=== PATIENT | female | born 1935 | race Native Hawaiian/Other Pacific Islander ===

== ENCOUNTER 2017-06-08 09:47 | Day surgery (SDC) | payer MEDICARE, MEDICAID ==
[2017-06-08 09:52] VITALS: BMI 18.5
--- NOTE | 2017-06-08 09:59 | C.PDOC ---
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 EKG in the field showed ST elevatoin in I, aVL, V3, V4 with reciprocal changes in III, aVF. Patient given ASA 324mg, SL nitro x 2 in the field. Chief Complaint (Nursing): Chest Pain History Per: Patient, EMS, Family History/Exam Limitations: clinical condition, language barrier Onset/Duration Of Symptoms: Mins (20) Current Symptoms Are (Timing): Still Present Severity: Severe Quality: "Pain" Past Medical History Reviewed: Historical Data, Nursing Documentation, Vital Signs Vital Signs: Last Vital Signs Temp 97.7 F 06/08/17 09:50 Pulse 53 L 06/08/17 10:50 Resp 15 06/08/17 10:50 BP 181/87 H 06/08/17 10:50 Pulse Ox 99 06/12/17 10:32 - Medical History PMH: CVA, HTN, Hyperlipidemia Family History: States: Unknown Family Hx Other Family History: noncontributory Review Of Systems Except As Marked, All Systems Reviewed And Found Negative. Constitutional: Negative for: Fever, Chills Cardiovascular: Positive for: Chest Pain. Negative for: Palpitations Respiratory: Negative for: Cough, Shortness of Breath Gastrointestinal: Negative for: Nausea, Vomiting, Abdominal Pain Physical Exam - Physical Exam Appears: In Acute Distress (in moderate to severe pain) Skin: Warm, Dry Oral Mucosa: Moist Cardiovascular: Rhythm Regular Respiratory: Normal Breath Sounds, No Rales, No Rhonchi, No Wheezing Gastrointestinal/Abdominal: Normal Exam, Bowel Sounds, Soft, No Tenderness Extremity: Normal ROM, No Pedal Edema, No Calf Tenderness Pulses: Left Dorsalis Pedis: Normal, Right Dorsalis Pedis: Normal Neurological/Psych: Oriented x3 ED Course And Treatment - Laboratory Results Result Diagrams: 06/08/17 10:03 06/08/17 10:03 ECG: Interpreted By Me, Viewed By Me (NSR 75 bpm, normal axis, ST elkevations V1 , V2, V3 with reciprocal changes III, aVF) O2 Sat by Pulse Oximetry: 99 (RA) Pulse Ox Interpretation: Normal Progress Note: [facility] EKG sent and reviewed with Dr. Bravo prior to patient arrival in ED - unclear if STEMI as per him, to be repeated on ED arrival. Blood work, EKG ordered and reviewed. Patient given IV heparin bolus, PO Plavix (requested by Dr. Bravo). - Physician Consult Information Physician Contacted: Jeannie Bravo Outcome Of Conversation: Spoke with Dr. Bravo at approx 9:54am, agrees with Code Heart activation. Patient admitted to his service pending emergent cath. Disposition - Disposition Disposition: HOSPITALIZED Disposition Time: 10:05 Condition: STABLE Forms: [employer] (Stateless) - Clinical Impression Clinical Impression: STEMI (ST elevation myocardial infarction) Decision To Admit - Pt Status Changed To: Hospital Disposition Of: Inpatient - Admit Certification Admit to Inpatient:: After my assessment, the patient will require hospitalization for at least two midnights. This is because of the severity of symptoms shown, intensity of services needed, and/or the medical risk in this patient being treated as an outpatient. - InPatient: Physician Admission Certification: I certify that this patient requires 2 or more midnights of care for the following reason:: see notes - . Bed Request Type: ICU Admitting Physician: Jeannie Bravo Patient Diagnosis: STEMI (ST elevation myocardial infarction)
[2017-06-08 10:05] VITALS: TEMP 97.7
[2017-06-08 10:08] LABS: BASO % 0.2 % (0.0-2.0); EOS # 0.3 K/uL (0.0-0.7); EOS % 4.7 % (0.0-4.0); HEMATOCRIT 33.4 % (34.0-47.0); LYMPH # 3.7 K/uL (1.0-4.3); MEAN CELL VOLUME 79.2 fL (81.0-99.0); MEAN CORPUSCULAR HEMOGLOBIN 26.1 pg (27.0-31.0); MEAN PLATELET VOLUME 8.6 fL (7.2-11.7); MONO # 0.4 K/uL (0.0-0.8); MONO % 6.1 % (0.0-10.0); NRBC % 0.1 % (0.0-2.0); RED CELL DISTRIBUTION WIDTH 13.3 % (11.5-14.5); WHITE BLOOD COUNT 6.5 K/uL (4.8-10.8)
[2017-06-08 10:17] LABS: INR 0.9
[2017-06-08 10:26] LABS: BILIRUBIN,TOTAL 0.8 mg/dL (0.2-1.3); CALCIUM 8.8 mg/dl (8.6-10.4); POTASSIUM 3.9 mmol/L (3.6-5.2); TOTAL PROTEIN 8.3 g/dL (6.3-8.3)
[2017-06-08] MEDS ORDERED: Sodium Chloride 0.9% 500 ML IV ONE ×2 (10:40→10:43)
[2017-06-08] MEDS ORDERED: Sodium Chloride 0.9% 1,000 ML IV SCH (10:45)
[2017-06-08] MEDS ORDERED: Iodixanol 320 MG/ML 200 ML BOTTLE IV ONE (10:58)
[2017-06-08] MEDS ORDERED: Nitroglycerin 50mg in D5W 50 MG/250 ML BOTTLE IV ONE (10:59)
[2017-06-08 11:10] LABS: TROPONIN I 0.122 ng/mL (0.00-0.120)
[2017-06-08 11:33] VITALS: BP 181/87; PULSE 53; RESP 15
--- NOTE | 2017-06-08 19:04 | RAD ---
HISTORY: R/O INFILTRATE COMPARISON: Comparison chest dated 09/24/2012 FINDINGS: LUNGS: Note the study is somewhat limited due to cardiac defibrillator pad which overlies the left mid to lower lung field. Mild bibasilar atelectasis left greater than right. Questionable small effusions. . Calcified granuloma right lung upper lobe and and probably within the left upper lobe as well. . Mild biapical pleural thickening. PLEURA: As above. No apparent pneumothorax. CARDIOVASCULAR: Heart size is upper limits of normal. Aorta is slightly ectatic and uncoiled. OSSEOUS STRUCTURES: No significant abnormalities. VISUALIZED UPPER ABDOMEN: Normal. OTHER FINDINGS: None. IMPRESSION: Note the study is somewhat limited due to cardiac defibrillator pad which overlies the left mid to lower lung field. Mild bibasilar atelectasis left greater than right. Questionable small effusions. Calcified granuloma right upper lobe and possibly probably within left upper lobe as well. Mild biapical pleural thickening
--- NOTE | 2017-06-08 20:30 | CARDCATH ---
CARDIAC CATHETERIZATION INTERVENTION REPORT BRIEF CLINICAL HISTORY: The patient, who is 81-year-old female with history of hypertension, who was brought to the ER of [facility] for the chest pain. The patient had an EKG done, which showed that she was having anterior wall IA. Code Angio was called in. PROCEDURE TECHNIQUE: After consulting the patient, the patient was brought to the cardiac catheterization lab. The patient was prepared for the procedure. Right groin was used for access and after obtaining the access, a 6-[place]ai[place]ese sheath was introduced into the right common femoral artery. A 6-[place]ai[place]ese XB 3.30 guiding catheter was used to visualize the left coronary artery system, which was not successful. Later on 6-[place]ai[place]ese 3.5 JL catheter was used to visualize the left coronary artery system, which showed that the patient has a 70% to 80% ostial left main with ventricularization and dampening of the pressure when the pressure was disengaged. During this time, it was also visualized that the patient has a 100% mid LAD. The patient also has a mid 90% stenosis in the circumflex. JR4 catheter was used to visualize the right coronary artery system. RCA is anterior and ascending, which was not properly engaged, but; however, a nonselective induction shows that the patient has some disease in the mid portion of the vessel. During this time, the patient became hypotensive and she became bradycardic. Transvenous temporary pacemaker was inserted. The patient was given Atropine 0.5 mg twice and the patient regained normal heart rate. After stabilizing the patient hemodynamically, 6-[place]ai[place]ese 3.5 JL catheter was reintroduced into the left main and PCI of the left anterior descending artery was attempted; however, because of the location, lesion could not be crossed with the wire and the patient was becoming hemodynamically usstable. After stabilizing the wire was and catheter was removed, and intra-aortic balloon was inserted into the right femoral artery. During all this time, the patient remained hemodynamically stable. ASSESSMENT: Multivessel disease involving the left main, hemodynamically stable, intraaortic balloon pump and temporary pacemaker inside. The patient is having her own rhythm at this time. PLAN: The patient will be transferred to another facility where she can have an emergent bypass surgery and patient will be continued on IV nitroglycerin, IV therapeutic heparin and aspirin. Case was discussed in detail with her family, diagnosis and prognosis was discussed with the family as well. Jeannie Bravo MD [facility] # [id number] [place]CY
[2017-06-12 10:32] VITALS: O2SAT 99
== END 2017-06-08 13:35 | disposition short-term general hospital (02) ==
LOC: C.ER 09:47 → UNDOADMIN 10:05 → C.9I 10:05 → C.SDS 11:21 → C.9I 13:57 → C.9E 14:10 → C.9I 14:10
PROVIDERS: ATTEND Internal Medicine
DX: I21.3 ST elevation (STEMI) myocardial infarction of unspecified site (principal); R07.9 Chest pain, unspecified; I10 Essential (primary) hypertension; E78.5 Hyperlipidemia, unspecified
CPT/HCPCS: 33210; 33967; 71010; 80053; 84484; 85025; 85347; 85610; 85730; 86850; 86900; 93458; 96361; 96374; 96375; 99285; C1725; C1730; C1766; C1769; C1887; J1644; J2270; J2405; J7040; Q9966

== ENCOUNTER 2017-10-31 13:10 | Inpatient (IN) | payer MEDICARE, MEDICAID ==
[2017-10-31 13:12] VITALS: BMI 18.5
[2017-10-31] MEDS ORDERED: Sodium Chloride 0.9% 500 ML IV ONE ×2 (13:36→15:01)
[2017-10-31 14:03] LABS: BASO % 0.3 % (0.0-2.0); EOS # 0.7 K/uL (0.0-0.7); EOS % 13.7 % (0.0-4.0); HEMOGLOBIN 10.4 g/dL (11.0-16.0); LYMPH # 1.6 K/uL (1.0-4.3); LYMPH % 30.9 % (20.0-40.0); MEAN CELL VOLUME 80.9 fL (81.0-99.0); MEAN CORPUSCULAR HGB CONC 32.1 g/dL (33.0-37.0); MEAN PLATELET VOLUME 9.6 fL (7.2-11.7); MONO # 0.4 K/uL (0.0-0.8); MONO % 8.5 % (0.0-10.0); NEUT # 2.4 K/uL (1.8-7.0); NEUT % 46.6 % (50.0-75.0); NRBC % 0.1 % (0.0-2.0); RBC 4.01 Mil/uL (3.80-5.20); RED CELL DISTRIBUTION WIDTH 15.1 % (11.5-14.5); WHITE BLOOD COUNT 5.1 K/uL (4.8-10.8)
--- NOTE | 2017-10-31 14:12 | C.PDOC ---
History Of Present Illness 82 year old female brought in by ambulance for evaluation of generalized weakness and decreased PO intake for the last several days. Had 1 episode of vomiting yesterday. History is provided by grandchildren. Patient has a past medical history of IA in 06/2017 and kidney failure. Denies any abdominal pain, chest pain, SOB, cough, or fever. 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 Jennie Priest Time Seen by Provider: 10/31/17 13:27 Chief Complaint (Nursing): GI Problem History Per: Family (grandchildren) History/Exam Limitations: no limitations Onset/Duration Of Symptoms: Days Current Symptoms Are (Timing): Still Present Past Medical History Reviewed: Historical Data, Nursing Documentation, Vital Signs Vital Signs: Last Vital Signs Temp 97.4 F L 10/31/17 13:15 Pulse 72 10/31/17 13:15 Resp 24 10/31/17 13:15 BP 128/59 L 10/31/17 13:15 Pulse Ox 97 10/31/17 14:25 - Medical History PMH: CVA, HTN, Hyperlipidemia, Chronic Kidney Disease Other Surgeries: Carotid artery surgery Family History: States: Unknown Family Hx - Social History Hx Tobacco Use: No Hx Alcohol Use: No Hx Substance Use: No Review Of Systems Except As Marked, All Systems Reviewed And Found Negative. Constitutional: Positive for: Weakness, Other (decreased PO intake) Physical Exam - Physical Exam Appears: No Acute Distress, Other (Appears fatigued) Skin: Normal Color, Warm, Dry Head: Atraumatic, Normacephalic Eye(s): bilateral: Normal Inspection, PERRL, EOMI Oral Mucosa: Dry Lips: Other (Dry, chapped lips) Neck: Normal ROM, Supple Chest: Symmetrical Cardiovascular: Rhythm Regular, No Murmur Respiratory: No Accessory Muscle Use, Rales (mild rales at the bases, bilaterally), No Rhonchi, No Wheezing Gastrointestinal/Abdominal: Soft, No Tenderness, No Guarding, No Rebound Extremity: Bilateral: Atraumatic, Normal Color And Temperature, Normal ROM Neurological/Psych: Oriented x3, Normal Speech ED Course And Treatment - Laboratory Results Result Diagrams: 10/31/17 13:50 10/31/17 13:50 O2 Sat by Pulse Oximetry: 97 (RA) Pulse Ox Interpretation: Normal - Other Rad CXR X-Ray: Viewed By Me, Read By Radiologist Interpretation: Accession No. : [id number]. Patient Name / ID : NEHEMIAH ALFORD / [id number]. Exam Date : 10/31/2017 13:39:22 ( Approved ). Study Comment : Sex / Age : F / 82Y. Creator : Ha Mccarthy MD. Dictator : Ha Mccarthy MD. Director Operating Room : Suspect Artist Supervisor : Ha Mccarthy MD. Approver2 : Report Date : 10/31/2017 14:15:32. My Comment : . PROCEDURE: CHEST RADIOGRAPH, 1 VIEW. HISTORY: dehydration, vomiting. COMPARISON: . FINDINGS: LUNGS: No infiltrate. Calcified granuloma in right apex. PLEURA: No pneumothorax or pleural fluid seen. CARDIOVASCULAR: Cardiomegaly. No congestive change. OSSEOUS STRUCTURES: No significant abnormalities. VISUALIZED UPPER ABDOMEN: Normal. OTHER FINDINGS: None. IMPRESSION: Cardiomegaly. Calcified granuloma in right apex. No infiltrate. Progress Note: Blood work, EKG, CXR ordered and reviewed. IV fluids administered. Disposition - Disposition Forms: [facility] (Greek) - Scribe Statement The provider has reviewed the documentation as recorded by the Scribe (Tangela Snider) Provider Attestation: All medical record entries made by the Scribe were at my direction and personally dictated by me. I have reviewed the chart and agree that the record accurately reflects my personal performance of the history, physical exam, medical decision making, and the department course for this patient. I have also personally directed, reviewed, and agree with the discharge instructions and disposition.
--- NOTE | 2017-10-31 14:17 | RAD ---
PROCEDURE: CHEST RADIOGRAPH, 1 VIEW HISTORY: dehydration, vomiting COMPARISON: 06/08/2017 FINDINGS: LUNGS: No infiltrate. Calcified granuloma in right apex. PLEURA: No pneumothorax or pleural fluid seen. CARDIOVASCULAR: Cardiomegaly. No congestive change. OSSEOUS STRUCTURES: No significant abnormalities. VISUALIZED UPPER ABDOMEN: Normal. OTHER FINDINGS: None. IMPRESSION: Cardiomegaly. Calcified granuloma in right apex. No infiltrate.
[2017-10-31 14:31] LABS: ALB/GLOB RATIO 0.9 (1.0-2.1); ALBUMIN 3.8 g/dL (3.5-5.0); CALCIUM 8.7 mg/dl (8.6-10.4)
[2017-10-31 14:35] LABS: CK-MB 1.03 ng/mL (0.0-3.38); TROPONIN I 0.032 ng/mL (0.00-0.120)
[2017-10-31 14:57] LABS: VENOUS BLOOD GAS BASE EXCESS -18.2 mmol/L (0.0-2.0); VENOUS BLOOD GAS PCO2 32 mmHg (40-60); VENOUS BLOOD GAS PO2 22 mm/Hg (30-55); VENOUS BLOOD PH 7.11 (7.32-7.43)
[2017-10-31 16:53] LABS: URINE BILIRUBIN NEGATIVE (NEGATIVE); URINE BLOOD NEGATIVE (NEGATIVE); URINE CLARITY Hazy (Clear); URINE COLOR Yellow (YELLOW); URINE GLUCOSE (UA) NORMAL (Normal); URINE LEUKOCYTE ESTERASE 1+ Leu/uL (Negative); URINE PROTEIN 1+ mg/dL (NEGATIVE); URINE UROBILINOGEN NORMAL mg/dL (0.2-1.0)
[2017-10-31] MEDS ORDERED: Dextrose 5%/0.45% NS 1,000 ML IV SCH (17:45)
[2017-10-31 19:13] LABS: CK-MB 0.91 ng/mL (0.0-3.38); TROPONIN I 0.029 ng/mL (0.00-0.120)
[2017-10-31] MEDS ORDERED: Sodium Bicarbonate (8.4%) 50 Meq Syringe IVP ONE (20:34)
[2017-10-31] MEDS ORDERED: Sodium Bicarbonate 8.4% 150 MEQ in Dextrose 5% In Water 1,000 ML IV SCH ×2 (20:45→22:00)
--- NOTE | 2017-10-31 21:51 | CP.PCM.CON ---
History of Present Illness - History of Present Illness History of Present Illness: pt is seen and examined, full consult is dictated #[id number] 1. Sergio on ckd-4 2. met. acidosis 3. dehydration 4. htn 5. hld 6.cad check u/s kidnyes, bladder. pth intact, hept. c,b serology iv nahco3 1 amp iv px1, start ivf d5w with 150 meq nahco3 at 70 ml/hr bmp in am Past Patient History - Past Social History Smoking Status: Never Smoked - CARDIAC Hx Hypertension: Yes - PULMONARY Hx Respiratory Disorders: No - NEUROLOGICAL Hx Neurological Disorder: Yes HX Cerebrovascular Accident: Yes - HEENT Hx HEENT Problems: No - RENAL Hx Chronic Kidney Disease: Yes - ENDOCRINE/METABOLIC Hx Diabetes Mellitus Type 2: Yes - HEMATOLOGICAL/ONCOLOGICAL Hx Blood Disorders: No - INTEGUMENTARY Hx Dermatological Problems: No - MUSCULOSKELETAL/RHEUMATOLOGICAL Hx Musculoskeletal Disorders: No Hx Falls: No - GASTROINTESTINAL Hx Gastrointestinal Disorders: No - GENITOURINARY/GYNECOLOGICAL Hx Genitourinary Disorders: No - PSYCHIATRIC Hx Psychophysiologic Disorder: No Hx Substance Use: No - SURGICAL HISTORY Hx Surgeries: Yes Other/Comment: Carotid artery sx - ANESTHESIA Hx Anesthesia: Yes Hx Anesthesia Reactions: No Hx Malignant Hyperthermia: No Has any member of the family had a problem w/ anesthesia?: No Meds Allergies/Adverse Reactions: Allergies Allergy/AdvReac Type Severity Reaction Status Date / Time No Known Allergies Allergy Verified 06/08/17 09:52 - Medications Medications: Current Medications Aspirin (Ecotrin) 81 mg PO DAILY [facility] Carvedilol (Coreg) 3.125 mg PO BID [facility] Last Admin: 10/31/17 18:21 Dose: 3.125 mg Clopidogrel Bisulfate (Plavix) 75 mg PO DAILY [facility] Sodium Bicarbonate 150 meq/ (Dextrose) 1,150 mls @ 70 mls/hr IV .[id number] [facility] Pantoprazole Sodium (Protonix Ec Tab) 40 mg PO DAILY [facility] Rosuvastatin Calcium (Crestor) 20 mg PO HS [facility] Vitamin B Complex/Vit C/Folic Acid (Nephro-Orquidea) 1 tab PO DAILY [facility] Results - Vital Signs Recent Vital Signs: Last Vital Signs Temp 98.3 F 10/31/17 17:04 Pulse 82 10/31/17 17:04 Resp 18 10/31/17 17:04 BP 126/70 10/31/17 17:04 Pulse Ox 97 10/31/17 17:04 - Labs Result Diagrams: 10/31/17 13:50 10/31/17 21:49 Labs: Laboratory Results - last 24 hr 10/31/17 10/31/17 10/31/17 13:50 13:50 14:51 WBC 5.1 RBC 4.01 Hgb 10.4 L Hct 32.4 L MCV 80.9 L MCH 26.0 L MCHC 32.1 L RDW 15.1 H Plt Count 148 MPV 9.6 Neut % (Auto) 46.6 L Lymph % (Auto) 30.9 [place] % (Auto) 8.5 Eos % (Auto) 13.7 H Baso % (Auto) 0.3 Neut # (Auto) 2.4 Lymph # (Auto) 1.6 [place] # (Auto) 0.4 Eos # (Auto) 0.7 Baso # (Auto) 0.0 pO2 22 L VBG pH 7.11 L* VBG pCO2 32 L VBG HCO3 8.6 VBG Total CO2 11.2 L VBG O2 Sat (Calc) 49.7 VBG Base Excess -18.2 L VBG Potassium 4.8 Glucose 98 Lactate 0.6 L Crit Value Called To Dr.anso childress Crit Value Called By Davis pfeiffer,warehouse operator Crit Value Read Back Y Blood Gas Notified Time 1500 Sodium 139 141.0 Potassium 5.0 Chloride 110 H 110.0 H Carbon Dioxide 10 L* D Anion Gap 23 H BUN 116 H* D Creatinine 4.2 H Est GFR ( Amer) 12 Est GFR (Non-Af Amer) 10 POC Glucose (mg/dL) Random Glucose 89 Calcium 8.7 Total Bilirubin 0.3 AST 29 ALT 17 Alkaline Phosphatase 75 Total Creatine Kinase 28 L CK-MB (Mass) 1.03 Troponin I 0.0320 NT-Pro-B Natriuret Pep 53729 H Total Protein 8.0 Albumin 3.8 Globulin 4.3 H Albumin/Globulin Ratio 0.9 L Venous Blood Potassium 4.8 Urine Color Urine Clarity Urine pH Ur Specific [place] Urine Protein Urine Glucose (UA) Urine Ketones Urine Blood Urine Nitrate Urine Bilirubin Urine Urobilinogen Ur Leukocyte Esterase Urine WBC (Auto) Urine RBC (Auto) 10/31/17 10/31/17 10/31/17 16:40 17:27 18:45 WBC RBC Hgb Hct MCV MCH MCHC RDW Plt Count MPV Neut % (Auto) Lymph % (Auto) [place] % (Auto) Eos % (Auto) Baso % (Auto) Neut # (Auto) Lymph # (Auto) [place] # (Auto) Eos # (Auto) Baso # (Auto) pO2 VBG pH VBG pCO2 VBG HCO3 VBG Total CO2 VBG O2 Sat (Calc) VBG Base Excess VBG Potassium Glucose Lactate Crit Value Called To Crit Value Called By Crit Value Read Back Blood Gas Notified Time Sodium Potassium Chloride Carbon Dioxide Anion Gap BUN Creatinine Est GFR ( Amer) Est GFR (Non-Af Amer) POC Glucose (mg/dL) 93 Random Glucose Calcium Total Bilirubin AST ALT Alkaline Phosphatase Total Creatine Kinase 24 L CK-MB (Mass) 0.91 Troponin I 0.0290 NT-Pro-B Natriuret Pep Total Protein Albumin Globulin Albumin/Globulin Ratio Venous Blood Potassium Urine Color Yellow Urine Clarity Hazy Urine pH 5.0 Ur Specific [place] 1.013 Urine Protein 1+ H Urine Glucose (UA) Normal Urine Ketones Negative Urine Blood Negative Urine Nitrate Negative Urine Bilirubin Negative Urine Urobilinogen Normal Ur Leukocyte Esterase 1+ H Urine WBC (Auto) 22 H Urine RBC (Auto) 1
[2017-10-31] MEDS: Sodium Bicarbonate 8.4% 150 MEQ in Dextrose 5% In Water 1,000 ML IV SCH (22:03)
[2017-10-31] MEDS ORDERED: Sodium Bicarbonate (8.4%) 50 Meq Syringe ONE (22:07)
[2017-10-31 22:31] LABS: OSMOLALITY,URINE 355 mosm/kg (300-1000)
[2017-10-31 22:45] LABS: HEPATITIS B SURFACE AG Negative (NEGATIVE)
[2017-10-31 22:50] LABS: HEPATITIS A IGM NEGATIVE (NEGATIVE); HEPATITIS B CORE AB NEGATIVE (NEGATIVE)
--- NOTE | 2017-10-31 22:52 | US ---
EXAM: US Retroperitoneal Complete, Renal EXAM DATE/TIME: 10/31/2017 8:36 PM CLINICAL HISTORY: 82 years old, female; Signs and symptoms; Other: R/O hydro TECHNIQUE: Real-time ultrasound of the retroperitoneum (complete) with image documentation. COMPARISON: No relevant prior studies available. FINDINGS: Right kidney: Demonstrates increased cortical echogenicity, most likely due to renal parenchymal disease. Small in size, measuring 7.7 cm in length. Contains a 1.9 x 1.7 cm anechoic lesion, located in the lower pole, most compatible with a simple cyst. Otherwise within normal limits in appearance. No evidence of hydronephrosis. Left kidney: Demonstrates increased cortical echogenicity, most likely due to renal parenchymal disease. Small in size, measuring 7.4 cm in length. Contains a 1.3 x 1.2 cm anechoic to slightly hypoechoic lesion, most likely representing a cyst. Also contains a 2 mm echogenic focus, most compatible with a nonobstructing stone. Otherwise within normal limits in appearance. No evidence of hydronephrosis. Bladder: Could not be visualized, due to decompression by an indwelling catheter. Aorta: Atherosclerotic disease noted. Visualized portions appearing non-aneurysmally dilated. IMPRESSION: No evidence of hydronephrosis or other acute sonographic abnormality of the kidneys. Small, echogenic kidneys, suggestive of chronic renal parenchymal disease and atrophy. Probable bilateral renal cysts. Tiny nonobstructing left renal stone. See above for remaining findings.
[2017-10-31 23:02] LABS: HEPATITIS C ANTIBODY NEGATIVE (NEGATIVE)
[2017-10-31] MEDS ORDERED: Tramadol 25 mg PO ONE (23:15)
[2017-11-01 00:55] LABS: CK-MB 1.56 ng/mL (0.0-3.38)
--- NOTE | 2017-11-01 01:32 | CON ---
DATE: 10/31/2017. LOCATION: Room 565, bed A. REQUESTED BY: Dr. Marilin Priest. REASON FOR CONSULTATION AND FOLLOWUP: Acute renal failure, chronic kidney disease, severe metabolic acidosis and for further evaluation. HISTORY OF PRESENT ILLNESS: Mrs. Priest is an 82 years old elderly female with a past medical history significant for hypertension, hyperlipidemia, chronic kidney disease with a baseline creatinine about 2.0 status post carotid surgery who was brought in by ambulance for evaluation of generalized weakness and decreased p.o. intake for the last several days and she also had 1 episode of vomiting yesterday, status post ME in June 2017. The patient denies any abdominal pain. The patient complains of chest discomfort. No shortness of breath. No cough. No fever. No edema of the legs. The patient is a poor historian. PAST MEDICAL HISTORY: Significant for hypertension, hyperlipidemia, chronic kidney disease, coronary artery disease, CVA, status post carotid surgery and also abdominal surgery. ALLERGIES: NO KNOWN DRUG ALLERGIES. SOCIAL HISTORY: No smoking, no alcohol or drugs. FAMILY HISTORY: Not significant. HOME MEDICATIONS: Include Protonix, Plavix, Coreg, Renal Caps, Lipitor and aspirin. HOSPITAL MEDICATIONS: Include as follows; Coreg 3.125 mg p.o. b.i.d., Crestor 20 mg at bedtime, aspirin 81 mg daily, Nephro-Orquidea 1 tablet daily, Plavix 75 mg daily, Protonix 40 mg p.o. daily, tramadol 25 mg p.o. daily, IV fluids changed to D5W with 150 mEq of sodium bicarbonate at 70 mL/hour, also sodium bicarb IV push 1 amp. REVIEW OF SYSTEMS: Significant for generalized weakness and decreased p.o. intake and vomiting and chest discomfort. All other review of systems are reviewed and are negative. PHYSICAL EXAMINATION: GENERAL: Mrs. Priest is an 82 years old elderly female, thin built, not in distress. VITAL SIGNS: Blood pressure 126/70, pulse 82, respiration 18, temperature 98.3, saturation 97%. Height 4 feet 10 inches, weight is 90 pounds. HEENT: Pupils normal, reactive to light and accommodation. Conjunctivae pink. Sclerae anicteric. Tongue is slightly dry and trachea is midline. No thyroid enlargement. LUNGS: Symmetric on both sides. Bilateral breath sounds present. Clear to auscultation. CVS: [place] at the fifth intercostal space, midclavicular line. S1 and S2 audible. No murmur or gallop. ABDOMEN: The patient has a subumbilical suprapubic scar midline. Abdomen is soft, slightly distended, tympanic. No guarding, no rigidity. No hepatosplenomegaly. No abdominal bruit. No tenderness. DIRECTOR PRISON: The patient is alert, awake, oriented x3. Nonfocal neuro examination. Cranial nerves II through XII grossly intact. Sensory and motor system is within normal limits. EXTREMITIES: No cyanosis, no clubbing, no edema. LABORATORY DATA: Include as follows as of 10/31/2017; WBC 5.1, hemoglobin 10.4, hematocrit is 32.4 and platelets of 148. VBG pH 7.11, pO2 22, pCO2 32, bicarbonate 8.6 and lactic acid level is 0.6. Sodium 139, potassium is 5, chloride 110, CO2 10 with anion gap above 19 and BUN 116 and creatinine is 4.2, glucose 89, calcium 8.7, total bili 0.3, AST 29, ALT 17, alkaline phosphatase 75, CPK 28, CK-MB 1.03, troponin 0.032, proBNP 17,000 and total protein 8.0, albumin 3.8, globulin 4.3, troponin 0.032, 0.290 and repeat potassium is 4.8 and phosphorus is 5.7. Urinalysis, yellow, hazy and pH 5, specific gravity 1.013, protein 1+, glucose normal, ketones negative, blood negative, nitrites negative, bilirubin negative, urobilinogen is normal and leukocyte esterase 1+, wbc 22, rbc 1. Other reports, chest x-ray as of 10/31/2017, cardiomegaly, calcified granuloma in the right apex, no infiltrate. Ultrasound of the kidneys, right kidney 7.7 cm in length and contains 1.9 x 1.10 anechoic lesion located in the lower pole most compatible with simple cyst, left kidney demonstrates increased cortical echogenicity most likely due to renal parenchymal disease small in size measuring 7.4 cm in length, contains 1.3 x 1.2 cm anechoic two slightly hypoechoic lesion most likely representing a cyst also containing 2 mm echogenic focus most compatible with nonobstructing stone, bladder could not be visualized due to decompression by an indwelling [place] catheter. No evidence of hydronephrosis or other acute sonographic abnormalities of the kidneys, small echogenic kidneys suggest of a chronic renal parenchymal disease and atrophy and probably bilateral renal cyst and tiny nonobstructing left renal stone. Previous creatinine in May 2017 about 2.0. Review of the other labs from the previous admission as of 06/08/2017; BUN, creatinine 28/2.0. Cardiac cath report as of 06/08/2017; multivessel disease involving the left main hemodynamically stable. ASSESSMENT: In summary, Mrs. Priest is an 82 years old female with a history of hypertension, coronary artery disease, cerebrovascular accident, chronic kidney disease was admitted with weakness and decreased p.o. intake and poor appetite and also vomiting x1, increased BUN and creatinine, low bicarbonate. 1. Acute renal failure on chronic kidney disease stage IV. Cannot rule out progression of the chronic kidney disease. 2. Hypertension. 3. Dehydration. 4. Anion-gap metabolic acidosis most likely secondary to renal failure. 5. Coronary artery disease. 6. Hyperlipidemia. PLAN: We will give bicarb drip D5W with 150 mEq of bicarb each liter at 70 mL/hour and also we will give 1 amp of sodium bicarb IV push due to severe metabolic acidosis. Ultrasound of the kidneys was done consistent with bilateral small contracted kidneys most likely secondary to hypertensive nephrosclerosis. We will check hepatitis serology and also get phosphorus and PTH intact level. Continue monitor BMP daily and we will follow with you and also we will place a Victoria catheter for strict I and Os until renal function improves. We will follow with you. If renal function does not improve, the patient may need a renal replacement therapy. Thank you for allowing me to participate in your patient's care. Oneil Ron MD
--- NOTE | 2017-11-01 07:39 | HP ---
HISTORY OF PRESENT ILLNESS: This is an 82-year-old [place] female who was brought to the emergency room via ambulance for evaluation of generalized weakness and decreased p.o. intake for the last several days. The patient has one episode of vomiting yesterday. No history of chest pain or shortness of breath. The patient denies any complaint. The patient appears dehydrated. In the past, the patient was admitted to the [facility] for myocardial infarction about 2 months ago and found to have coronary artery disease. The patient's general condition was deteriorating. The patient also had mild renal dysfunction. No history of abdominal pain, shortness of breath, or cough. No history of fever. REVIEW OF SYSTEMS: RESPIRATORY SYSTEM: Negative for shortness of breath. CARDIOVASCULAR SYSTEM: Negative for chest pain. GI SYSTEM: Positive for vomiting. No abdominal pain. No diarrhea or constipation. The patient appears dehydrated. CENTRAL NERVOUS SYSTEM: Within normal limits. No focal neurological deficits noted. EXTREMITIES: No edema of the legs. HEENT: Tongue is dry. PAST HISTORY: History of CVA, hypertension, hyperlipidemia and coronary artery disease with mild renal insufficiency. The patient has carotid artery surgery done in the past. MEDICATIONS: The patient's medications are reviewed by me. ALLERGIES: NO KNOWN ALLERGIES. FAMILY HISTORY: No family history. SOCIAL HISTORY: Nonsmoker. Nonalcoholic. No IVDA. PHYSICAL EXAMINATION GENERAL: This is an 82-year-old [place]o female, awake, comfortable. Unable to answer any questions. NECK: JVP is flat. Carotid, no bruits. HEENT: Normal. LUNGS: No rales. No wheezing. HEART: S1, S2, normal. No gallop. No murmur. ABDOMEN: Soft, nontender. No organomegaly. 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 SKIN: Dry. Tongue is dry. VITAL SIGNS: Temperature 97.4, pulse 72, respirations 24, blood pressure 128/59 mmHg, pulse ox is 97% on room air. LABORATORY DATA: Lab work shows hemoglobin 10.4, potassium 5, BUN 116, and creatinine 4.2. Chest x-ray is grossly within normal limit. IMPRESSION: 1. Severe dehydration. 2. Acute renal insufficiency. 3. Coronary artery disease. 4. Hypertension. PLAN: The patient will be admitted to the floor under telemetry. We will give IV fluids. We will give renal and cardiac evaluation done. We will continue all the medications. Other workup as needed. Marilin Priest MD
[2017-11-01 07:56] LABS: HEMOGLOBIN 8.9 g/dL (11.0-16.0); MEAN CORPUSCULAR HEMOGLOBIN 26.1 pg (27.0-31.0); MEAN PLATELET VOLUME 9.1 fL (7.2-11.7); RBC 3.41 Mil/uL (3.80-5.20); RED CELL DISTRIBUTION WIDTH 14.9 % (11.5-14.5); WHITE BLOOD COUNT 4.9 K/uL (4.8-10.8)
[2017-11-01 07:59] LABS: MEAN CELL VOLUME 78.9 fL (81.0-99.0)
[2017-11-01 08:54] LABS: CALCIUM 7.9 mg/dl (8.6-10.4)
[2017-11-01] MEDS ORDERED: Pantoprazole 40 mg EC Tab PO SCH (10:00)
[2017-11-01] MEDS: Multivitamin Vitamin B Complex (Nephro-Vite) Tab PO SCH (10:15)
[2017-11-01 10:38] LABS: CK-MB 1.75 ng/mL (0.0-3.38)
--- NOTE | 2017-11-01 10:56 | CP.PCM.PN ---
Subjective - Date & Time of Evaluation Date of Evaluation: 11/01/17 Time of Evaluation: 10:53 - Subjective Subjective: POOR APPETITE. DEHYDRATED. DEBILITY PRESENT. CRF. METABOLIC ACIDOSIS. Objective - Vital Signs/Intake and Output Vital Signs (last 24 hours): Temp Pulse Resp BP Pulse Ox 97.9 F 77 18 126/66 95 11/01/17 07:51 11/01/17 07:51 11/01/17 07:51 11/01/17 07:51 11/01/17 07:51 Intake and Output: 11/01/17 11/01/17 06:59 18:59 Intake Total 70 Output Total 700 Balance -630 - Medications Medications: Current Medications Aspirin (Ecotrin) 81 mg PO DAILY [facility] Last Admin: 11/01/17 10:18 Dose: 81 mg Carvedilol (Coreg) 3.125 mg PO BID [facility] Last Admin: 11/01/17 10:20 Dose: Not Given Clopidogrel Bisulfate (Plavix) 75 mg PO DAILY [facility] Last Admin: 11/01/17 10:15 Dose: 75 mg Heparin Sodium (Porcine) (Heparin) 5,000 units SC Q12 [facility] Last Admin: 11/01/17 10:15 Dose: 5,000 units Sodium Bicarbonate 150 meq/ (Dextrose) 1,150 mls @ 70 mls/hr IV .[id number] [facility] Last Admin: 10/31/17 22:03 Dose: 70 mls/hr Pantoprazole Sodium (Protonix Ec Tab) 40 mg PO DAILY [facility] Last Admin: 11/01/17 10:14 Dose: 40 mg Rosuvastatin Calcium (Crestor) 20 mg PO HS [facility] Last Admin: 10/31/17 22:09 Dose: 20 mg Vitamin B Complex/Vit C/Folic Acid (Nephro-Orquidea) 1 tab PO DAILY [facility] Last Admin: 11/01/17 10:15 Dose: 1 tab - Labs Labs: 11/01/17 07:49 11/01/17 07:49 - Constitutional Appears: No Acute Distress, Chronically Ill - Eye Exam Eye Exam: EOMI, Normal appearance, PERRL Pupil Exam: NORMAL ACCOMODATION, PERRL - ENT Exam ENT Exam: Mucous Membranes Moist, Normal Exam - Neck Exam Neck Exam: Full ROM, Normal Inspection. absent: Lymphadenopathy - Respiratory Exam Respiratory Exam: Clear to Ausculation Bilateral, NORMAL BREATHING PATTERN - Cardiovascular Exam Cardiovascular Exam: REGULAR RHYTHM, +S1, +S2. absent: Murmur - GI/Abdominal Exam GI & Abdominal Exam: Soft, Normal Bowel Sounds. absent: Tenderness - Extremities Exam Extremities Exam: Full ROM, Normal Capillary Refill, Normal Inspection. absent : Joint Swelling, Pedal Edema - Back Exam Back Exam: NORMAL INSPECTION - Neurological Exam Neurological Exam: Alert, Awake, CN II-XII Intact, Normal Gait, Oriented x3 - Psychiatric Exam Psychiatric exam: Normal Affect, Normal Mood - Skin Skin Exam: Pallor, Warm Assessment and Plan - Assessment and Plan (Free Text) Assessment: SAME. Plan: HYDRATION. BICARB IV. CT ALL MEDS.
[2017-11-01] MEDS: Sodium Bicarbonate 8.4% 150 MEQ in Dextrose 5% In Water 1,000 ML IV SCH ×2 (13:08→14:27)
--- NOTE | 2017-11-01 15:48 | CP.PCM.CON ---
History of Present Illness - History of Present Illness History of Present Illness: Patient with history of CAD, LV systolic dysfunction. She admitted for not feeling well. Not eating, chest pain and vomiting. Past Patient History - Past Social History Smoking Status: Never Smoked - CARDIAC Hx Hypertension: Yes - PULMONARY Hx Respiratory Disorders: No - NEUROLOGICAL Hx Neurological Disorder: Yes HX Cerebrovascular Accident: Yes - HEENT Hx HEENT Problems: No - RENAL Hx Chronic Kidney Disease: Yes - ENDOCRINE/METABOLIC Hx Diabetes Mellitus Type 2: Yes - HEMATOLOGICAL/ONCOLOGICAL Hx Blood Disorders: No - INTEGUMENTARY Hx Dermatological Problems: No - MUSCULOSKELETAL/RHEUMATOLOGICAL Hx Musculoskeletal Disorders: No Hx Falls: No - GASTROINTESTINAL Hx Gastrointestinal Disorders: No - GENITOURINARY/GYNECOLOGICAL Hx Genitourinary Disorders: No - PSYCHIATRIC Hx Psychophysiologic Disorder: No Hx Substance Use: No - SURGICAL HISTORY Hx Surgeries: Yes Other/Comment: Carotid artery sx - ANESTHESIA Hx Anesthesia: Yes Hx Anesthesia Reactions: No Hx Malignant Hyperthermia: No Has any member of the family had a problem w/ anesthesia?: No Meds Allergies/Adverse Reactions: Allergies Allergy/AdvReac Type Severity Reaction Status Date / Time No Known Allergies Allergy Verified 06/08/17 09:52 - Medications Medications: Current Medications Aspirin (Ecotrin) 81 mg PO DAILY [facility] Last Admin: 11/01/17 10:18 Dose: 81 mg Carvedilol (Coreg) 3.125 mg PO BID [facility] Last Admin: 11/01/17 10:20 Dose: Not Given Clopidogrel Bisulfate (Plavix) 75 mg PO DAILY [facility] Last Admin: 11/01/17 10:15 Dose: 75 mg Heparin Sodium (Porcine) (Heparin) 5,000 units SC Q12 [facility] Last Admin: 11/01/17 10:15 Dose: 5,000 units Ondansetron HCl (Zofran Inj) 4 mg IVP Q8H PRN PRN Reason: Nausea/Vomiting Last Admin: 11/01/17 13:10 Dose: 4 mg Pantoprazole Sodium (Protonix Ec Tab) 40 mg PO DAILY [facility] Last Admin: 11/01/17 10:14 Dose: 40 mg Rosuvastatin Calcium (Crestor) 20 mg PO HS [facility] Last Admin: 10/31/17 22:09 Dose: 20 mg Vitamin B Complex/Vit C/Folic Acid (Nephro-Orquidea) 1 tab PO DAILY [facility] Last Admin: 04/21/18 10:15 Dose: 1 tab Physical Exam - Head Exam Head Exam: ATRAUMATIC ( ) - Neck Exam Neck exam: Positive for: Normal Inspection - Respiratory Exam Respiratory Exam: NORMAL BREATHING PATTERN Additional comments: Bilateral fine crackles. - Cardiovascular Exam Cardiovascular Exam: REGULAR RHYTHM - GI/Abdominal Exam GI & Abdominal Exam: Normal Bowel Sounds - Extremities Exam Extremities exam: Positive for: normal inspection - Neurological Exam Neurological exam: Oriented x3 Results - Vital Signs Recent Vital Signs: Last Vital Signs Temp 97.9 F 11/01/17 07:51 Pulse 77 11/01/17 07:51 Resp 18 11/01/17 07:51 BP 126/66 11/01/17 07:51 Pulse Ox 95 11/01/17 07:51 - Labs Result Diagrams: 11/01/17 07:49 11/01/17 07:49 Labs: Laboratory Results - last 24 hr 10/31/17 10/31/17 10/31/17 16:40 17:27 18:45 WBC RBC Hgb Hct MCV MCH MCHC RDW Plt Count MPV Differential Comment Sodium Potassium Chloride Carbon Dioxide Anion Gap BUN Creatinine Est GFR ( Amer) Est GFR (Non-Af Amer) POC Glucose (mg/dL) 93 Random Glucose Calcium Phosphorus Total Creatine Kinase 24 L CK-MB (Mass) 0.91 Troponin I 0.0290 Urine Color Yellow Urine Clarity Hazy Urine pH 5.0 Ur Specific [place] 1.013 Urine Protein 1+ H Urine Glucose (UA) Normal Urine Ketones Negative Urine Blood Negative Urine Nitrate Negative Urine Bilirubin Negative Urine Urobilinogen Normal Ur Leukocyte Esterase 1+ H Urine WBC (Auto) 22 H Urine RBC (Auto) 1 Urine Osmolality Ur Random Sodium Hepatitis A IgM Ab Hep Bs Antigen Hep B Core IgM Ab Hepatitis C Antibody 10/31/17 10/31/17 10/31/17 21:49 21:49 21:49 WBC RBC Hgb Hct MCV MCH MCHC RDW Plt Count MPV Differential Comment Sodium Potassium 4.8 Chloride Carbon Dioxide Anion Gap BUN Creatinine Est GFR ( Amer) Est GFR (Non-Af Amer) POC Glucose (mg/dL) Random Glucose Calcium Phosphorus 5.7 H Total Creatine Kinase CK-MB (Mass) Troponin I Urine Color Urine Clarity Urine pH Ur Specific [place] Urine Protein Urine Glucose (UA) Urine Ketones Urine Blood Urine Nitrate Urine Bilirubin Urine Urobilinogen Ur Leukocyte Esterase Urine WBC (Auto) Urine RBC (Auto) Urine Osmolality 355 Ur Random Sodium 88 Hepatitis A IgM Ab Negative Hep Bs Antigen Negative Hep B Core IgM Ab Negative Hepatitis C Antibody Negative 10/31/17 11/01/17 11/01/17 21:52 00:23 06:42 WBC RBC Hgb Hct MCV MCH MCHC RDW Plt Count MPV Differential Comment Sodium Potassium Chloride Carbon Dioxide Anion Gap BUN Creatinine Est GFR ( Amer) Est GFR (Non-Af Amer) POC Glucose (mg/dL) 104 117 H Random Glucose Calcium Phosphorus Total Creatine Kinase < 20 L CK-MB (Mass) 1.56 Troponin I 0.0860 Urine Color Urine Clarity Urine pH Ur Specific [place] Urine Protein Urine Glucose (UA) Urine Ketones Urine Blood Urine Nitrate Urine Bilirubin Urine Urobilinogen Ur Leukocyte Esterase Urine WBC (Auto) Urine RBC (Auto) Urine Osmolality Ur Random Sodium Hepatitis A IgM Ab Hep Bs Antigen Hep B Core IgM Ab Hepatitis C Antibody 11/01/17 11/01/17 11/01/17 07:49 07:49 07:49 WBC 4.9 RBC 3.41 L Hgb 8.9 L Hct 26.9 L MCV 78.9 L D MCH 26.1 L MCHC 33.0 RDW 14.9 H Plt Count 118 L D MPV 9.1 Differential Comment Sodium 140 Potassium 4.1 Chloride 109 H Carbon Dioxide 14 L Anion Gap 21 H BUN 113 H* Creatinine 3.4 H Est GFR ( Amer) 16 Est GFR (Non-Af Amer) 13 POC Glucose (mg/dL) Random Glucose 112 H Calcium 7.9 L Phosphorus Total Creatine Kinase < 20 L CK-MB (Mass) 1.75 Troponin I 0.1170 Urine Color Urine Clarity Urine pH Ur Specific [place] Urine Protein Urine Glucose (UA) Urine Ketones Urine Blood Urine Nitrate Urine Bilirubin Urine Urobilinogen Ur Leukocyte Esterase Urine WBC (Auto) Urine RBC (Auto) Urine Osmolality Ur Random Sodium Hepatitis A IgM Ab Hep Bs Antigen Hep B Core IgM Ab Hepatitis C Antibody 11/01/17 11:36 WBC RBC Hgb Hct MCV MCH MCHC RDW Plt Count MPV Differential Comment Sodium Potassium Chloride Carbon Dioxide Anion Gap BUN Creatinine Est GFR ( Amer) Est GFR (Non-Af Amer) POC Glucose (mg/dL) 137 H Random Glucose Calcium Phosphorus Total Creatine Kinase CK-MB (Mass) Troponin I Urine Color Urine Clarity Urine pH Ur Specific [place] Urine Protein Urine Glucose (UA) Urine Ketones Urine Blood Urine Nitrate Urine Bilirubin Urine Urobilinogen Ur Leukocyte Esterase Urine WBC (Auto) Urine RBC (Auto) Urine Osmolality Ur Random Sodium Hepatitis A IgM Ab Hep Bs Antigen Hep B Core IgM Ab Hepatitis C Antibody Assessment & Plan (1) Chest pain Assessment and Plan: Chest pain has resolved, Continue monitoring. Status: Acute (2) CAD (coronary artery disease) Assessment and Plan: S/P PCI. Continue DAPT. Echocardiogram to assess LV systolic function. Status: Acute (3) CRI (chronic renal insufficiency) Assessment and Plan: Nephrology on board. Follow recommendations. Status: Acute (4) Dehydration Assessment and Plan: Increased BUN/Creatinine. Watch for fluid overload. Status: Acute
--- NOTE | 2017-11-01 16:02 | CP.PCM.PN ---
Subjective - Date & Time of Evaluation Date of Evaluation: 11/01/17 Time of Evaluation: 16:02 - Subjective Subjective: pt is seen and examined, follow up consult is dictated #[id number] Objective - Vital Signs/Intake and Output Vital Signs (last 24 hours): Temp Pulse Resp BP Pulse Ox 98.3 F 61 18 132/71 95 11/01/17 15:10 11/01/17 15:10 11/01/17 15:10 11/01/17 15:10 11/01/17 15:10 Intake and Output: 11/01/17 11/01/17 06:59 18:59 Intake Total 70 530 Output Total 700 600 Balance -630 -70 - Medications Medications: Current Medications Aspirin (Ecotrin) 81 mg PO DAILY [facility] Last Admin: 11/01/17 10:18 Dose: 81 mg Carvedilol (Coreg) 3.125 mg PO BID [facility] Last Admin: 11/01/17 10:20 Dose: Not Given Clopidogrel Bisulfate (Plavix) 75 mg PO DAILY [facility] Last Admin: 11/01/17 10:15 Dose: 75 mg Furosemide (Lasix) 20 mg PO BID [facility] Heparin Sodium (Porcine) (Heparin) 5,000 units SC Q12 [facility] Last Admin: 11/01/17 10:15 Dose: 5,000 units Sodium Bicarbonate 150 meq/ (Dextrose) 1,150 mls @ 42 mls/hr IV .Q24H [facility] Ondansetron HCl (Zofran Inj) 4 mg IVP Q8H PRN PRN Reason: Nausea/Vomiting Last Admin: 11/01/17 13:10 Dose: 4 mg Pantoprazole Sodium (Protonix Ec Tab) 40 mg PO DAILY [facility] Last Admin: 11/01/17 10:14 Dose: 40 mg Rosuvastatin Calcium (Crestor) 20 mg PO HS [facility] Last Admin: 10/31/17 22:09 Dose: 20 mg Vitamin B Complex/Vit C/Folic Acid (Nephro-Orquidea) 1 tab PO DAILY [facility] Last Admin: 11/01/17 10:15 Dose: 1 tab - Labs Labs: 11/01/17 07:49 11/01/17 07:49
[2017-11-01] MEDS: Sodium Bicarbonate 8.4% 150 MEQ in Dextrose 5% In Water 850 ML IV SCH (17:29)
[2017-11-01] MEDS ORDERED: Tramadol 25 mg PO ONE (22:42)
[2017-11-02] MEDS: Multivitamin Vitamin B Complex (Nephro-Vite) Tab PO SCH (10:18)
--- NOTE | 2017-11-02 12:42 | CP.PCM.PN ---
Subjective - Date & Time of Evaluation Date of Evaluation: 11/02/17 Time of Evaluation: 11:00 - Subjective Subjective: CONDITION POOR. NO APPETITE. VOMITING X 2 PROTONIX IV STARTED. ZOFRAN PRN. DEHYDRATION IMPROVING . SEPTIC W/U NEG. Objective - Vital Signs/Intake and Output Vital Signs (last 24 hours): Temp Pulse Resp BP Pulse Ox 97.9 F 64 18 121/60 96 11/02/17 07:37 11/02/17 07:37 11/02/17 07:37 11/02/17 10:22 11/02/17 07:37 Intake and Output: 11/02/17 11/02/17 06:59 18:59 Intake Total 436 Output Total 1300 Balance -864 - Medications Medications: Current Medications Aspirin (Ecotrin) 81 mg PO DAILY [facility] Last Admin: 11/02/17 10:19 Dose: 81 mg Carvedilol (Coreg) 3.125 mg PO BID [facility] Last Admin: 11/02/17 10:23 Dose: 3.125 mg Clopidogrel Bisulfate (Plavix) 75 mg PO DAILY [facility] Last Admin: 11/02/17 10:19 Dose: 75 mg Furosemide (Lasix) 20 mg PO BID [facility] Last Admin: 11/02/17 10:22 Dose: 20 mg Heparin Sodium (Porcine) (Heparin) 5,000 units SC Q12 [facility] Last Admin: 11/02/17 10:19 Dose: 5,000 units Sodium Bicarbonate 150 meq/ (Dextrose) 1,000 mls @ 42 mls/hr IV .[id number] [facility] Last Admin: 11/01/17 17:29 Dose: 42 mls/hr Ondansetron HCl (Zofran Inj) 4 mg IVP Q6H PRN PRN Reason: Nausea/Vomiting Last Admin: 11/01/17 20:06 Dose: 4 mg Pantoprazole Sodium (Protonix Inj) 40 mg IVP DAILY [facility] Last Admin: 11/02/17 10:16 Dose: 40 mg Rosuvastatin Calcium (Crestor) 20 mg PO HS [facility] Last Admin: 11/01/17 21:23 Dose: 20 mg Vitamin B Complex/Vit C/Folic Acid (Nephro-Orquidea) 1 tab PO DAILY [facility] Last Admin: 11/02/17 10:18 Dose: 1 tab - Labs Labs: 11/01/17 07:49 11/01/17 07:49 - Constitutional Appears: No Acute Distress, Chronically Ill - Eye Exam Eye Exam: EOMI, Normal appearance, PERRL Pupil Exam: NORMAL ACCOMODATION, PERRL - ENT Exam ENT Exam: Mucous Membranes Moist, Normal Exam - Respiratory Exam Respiratory Exam: Clear to Ausculation Bilateral, NORMAL BREATHING PATTERN - Cardiovascular Exam Cardiovascular Exam: REGULAR RHYTHM, +S1, +S2. absent: Murmur - GI/Abdominal Exam GI & Abdominal Exam: Soft, Normal Bowel Sounds - Extremities Exam Extremities Exam: Full ROM, Normal Capillary Refill, Normal Inspection. absent : Joint Swelling, Pedal Edema - Neurological Exam Neurological Exam: Alert, Awake, CN II-XII Intact, Normal Gait, Oriented x3 Assessment and Plan - Assessment and Plan (Free Text) Assessment: DEHYDRATION CRF. GASTRITIS. Plan: FOR SUPPORTIVE CARE. IV FLUIDS.
--- NOTE | 2017-11-02 13:44 | CP.PCM.PN ---
Subjective - Date & Time of Evaluation Date of Evaluation: 11/02/17 Time of Evaluation: 13:41 - Subjective Subjective: Feeling better, denies any chest pain or shortness of breath Objective - Vital Signs/Intake and Output Vital Signs (last 24 hours): Temp Pulse Resp BP Pulse Ox 97.9 F 64 18 121/60 96 11/02/17 07:37 11/02/17 07:37 11/02/17 07:37 11/02/17 10:22 11/02/17 07:37 Intake and Output: 11/02/17 11/02/17 06:59 18:59 Intake Total 436 Output Total 1300 Balance -864 - Medications Medications: Current Medications Aspirin (Ecotrin) 81 mg PO DAILY [facility] Last Admin: 11/02/17 10:19 Dose: 81 mg Carvedilol (Coreg) 3.125 mg PO BID [facility] Last Admin: 11/02/17 10:23 Dose: 3.125 mg Clopidogrel Bisulfate (Plavix) 75 mg PO DAILY [facility] Last Admin: 11/02/17 10:19 Dose: 75 mg Furosemide (Lasix) 20 mg PO BID [facility] Last Admin: 11/02/17 10:22 Dose: 20 mg Heparin Sodium (Porcine) (Heparin) 5,000 units SC Q12 [facility] Last Admin: 11/02/17 10:19 Dose: 5,000 units Sodium Bicarbonate 150 meq/ (Dextrose) 1,000 mls @ 42 mls/hr IV .[id number] [facility] Last Admin: 11/01/17 17:29 Dose: 42 mls/hr Ondansetron HCl (Zofran Inj) 4 mg IVP Q6H PRN PRN Reason: Nausea/Vomiting Last Admin: 11/01/17 20:06 Dose: 4 mg Pantoprazole Sodium (Protonix Inj) 40 mg IVP DAILY [facility] Last Admin: 11/02/17 10:16 Dose: 40 mg Rosuvastatin Calcium (Crestor) 20 mg PO HS [facility] Last Admin: 11/01/17 21:23 Dose: 20 mg Vitamin B Complex/Vit C/Folic Acid (Nephro-Orquidea) 1 tab PO DAILY [facility] Last Admin: 11/02/17 10:18 Dose: 1 tab - Labs Labs: 11/01/17 07:49 11/01/17 07:49 - Head Exam Head Exam: NORMOCEPHALIC - Neck Exam Neck Exam: Normal Inspection - Cardiovascular Exam Cardiovascular Exam: REGULAR RHYTHM, Murmur - Extremities Exam Extremities Exam: Normal Inspection Assessment and Plan (1) Chest pain Assessment & Plan: No more chest pain. work-up negative so far. Status: Acute (2) CAD (coronary artery disease) Assessment & Plan: CAD is stable. continue DAPT. ECHO in AM. Status: Acute (3) CRI (chronic renal insufficiency) Assessment & Plan: Nephrology is following, case discussed. Status: Acute (4) Dehydration Assessment & Plan: Gentle hydration, check labs. Status: Acute
--- NOTE | 2017-11-02 15:33 | CP.PCM.PN ---
Subjective - Date & Time of Evaluation Date of Evaluation: 11/02/17 Time of Evaluation: 15:33 - Subjective Subjective: pt is seen and examined, follow up consult is dictated #[id number] Objective - Vital Signs/Intake and Output Vital Signs (last 24 hours): Temp Pulse Resp BP Pulse Ox 97.9 F 64 18 121/60 96 11/02/17 07:37 11/02/17 07:37 11/02/17 07:37 11/02/17 10:22 11/02/17 07:37 Intake and Output: 11/02/17 11/02/17 06:59 18:59 Intake Total 436 816 Output Total 1300 650 Balance -864 166 - Medications Medications: Current Medications Aspirin (Ecotrin) 81 mg PO DAILY [facility] Last Admin: 11/02/17 10:19 Dose: 81 mg Carvedilol (Coreg) 3.125 mg PO BID [facility] Last Admin: 11/02/17 10:23 Dose: 3.125 mg Clopidogrel Bisulfate (Plavix) 75 mg PO DAILY [facility] Last Admin: 11/02/17 10:19 Dose: 75 mg Furosemide (Lasix) 20 mg PO BID [facility] Last Admin: 11/02/17 10:22 Dose: 20 mg Heparin Sodium (Porcine) (Heparin) 5,000 units SC Q12 [facility] Last Admin: 11/02/17 10:19 Dose: 5,000 units Sodium Bicarbonate 150 meq/ (Dextrose) 1,000 mls @ 42 mls/hr IV .[id number] [facility] Last Admin: 11/01/17 17:29 Dose: 42 mls/hr Ondansetron HCl (Zofran Inj) 4 mg IVP Q6H PRN PRN Reason: Nausea/Vomiting Last Admin: 11/01/17 20:06 Dose: 4 mg Pantoprazole Sodium (Protonix Inj) 40 mg IVP DAILY [facility] Last Admin: 11/02/17 10:16 Dose: 40 mg Rosuvastatin Calcium (Crestor) 20 mg PO HS [facility] Last Admin: 11/01/17 21:23 Dose: 20 mg Vitamin B Complex/Vit C/Folic Acid (Nephro-Orquidea) 1 tab PO DAILY [facility] Last Admin: 11/02/17 10:18 Dose: 1 tab - Labs Labs: 11/01/17 07:49 11/01/17 07:49
[2017-11-02] MEDS: Sodium Bicarbonate 8.4% 150 MEQ in Dextrose 5% In Water 850 ML IV SCH (16:33)
[2017-11-02 17:28] LABS: CALCIUM 7.5 mg/dl (8.6-10.4)
--- NOTE | 2017-11-03 06:17 | PN ---
DATE: 11/02/2017. FOLLOWUP RENAL CONSULTATION LOCATION: Room 565, bed A. REQUESTED BY: Dr. Marilin Priest. REASON FOR FOLLOWUP: Acute renal failure, chronic kidney disease, metabolic acidosis. HISTORY OF PRESENT ILLNESS: Mrs. Priest is an 82 years old elderly female with a past medical history significant for hypertension, hyperlipidemia, chronic kidney disease, CKD 4, coronary artery disease status post angioplasty about 6 months ago was admitted with chief complaints of weakness and shortness of breath and decreased p.o. intake. The patient was found to have a very high BUN and creatinine and also low bicarb and started on IV bicarb drip initially at 70 mL/hour and decrease to 42 mL as per Cardiology recommendation. The patient is feeling better, not in acute distress. Denies any headache, dizziness. Denies any chest pain or palpitation. Denies any fever or cough. No abdominal pain. No nausea, vomiting, diarrhea. PHYSICAL EXAMINATION: VITAL SIGNS: As follows; blood pressure 113/64, pulse 69, respirations 18, temperature 98.2, saturation 95%. Height 4 feet 10 inches weight 90 pounds. GENERAL: Mrs. Priest is an 82 years old elderly female, thin built, not in distress. HEENT: Pupils normal, reactive to light and accommodation. Conjunctiva pink. Sclerae anicteric. Tongue is moist. Trachea is midline. LUNGS: Symmetric on both sides. Bilateral breath sounds present. Bilateral basal crackles present. CVS: [place] at the fifth intercostal space, midclavicular line. S1 and S2 audible. No murmur, no gallop. ABDOMEN: Normal in appearance, soft, tympanic. No guarding, no rigidity. No hepatosplenomegaly. 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 Nonfocal neuro examination. Cranial nerves II through XII grossly intact. Sensory and motor system is within normal limits. EXTREMITIES: No cyanosis, no clubbing, no edema. CURRENT MEDICATIONS: Include as follows; Coreg 3.125 mg p.o. b.i.d., Crestor 20 mg p.o. at bedtime, aspirin 81 mg daily, heparin 5000 units subcu every 12 hours, Lasix 20 mg p.o. b.i.d., Nephro-Orquidea 1 tablet daily, Plavix 75 mg p.o. daily, Protonix 40 mg IV daily, sodium bicarb drip at 42 mL/hour and Zofran 4 mg IV every 6 hours. LABORATORY DATA: This evening as follows; sodium 139, potassium 3.6, chloride 96, CO 29, BUN 85, creatinine 1.9, glucose 124, calcium 7.5. ASSESSMENT: In summary, Mrs. Priest is an 82 years old elderly female with history of hypertension, hyperlipidemia, coronary artery disease status post angioplasty about 6 months ago and chronic kidney disease was admitted with decreased p.o. intake, weakness and increased BUN and low hemoglobin and hematocrit. 1. Acute renal failure on chronic kidney disease. 2. Metabolic acidosis bicarb is now improved to 29 with IV bicarb drip. 3. Anemia secondary to renal failure, rule out iron-deficiency anemia. 4. Congestive heart failure. PLAN: We will DC IV bicarb drip and will encourage p.o. fluid intake. We will follow with you. Thank you for allowing me to participate in your patient's care. Oneil Ron MD
--- NOTE | 2017-11-03 06:19 | PN ---
DATE: 11/01/2017. FOLLOWUP RENAL CONSULTATION LOCATION: Room 565, bed A. REQUESTED BY: Dr. Marilin Priest. REASON FOR FOLLOWUP: Acute renal failure, chronic kidney disease and metabolic acidosis. HISTORY OF PRESENT ILLNESS: Mrs. Priest is an 82 years old elderly female with past medical history significant for hypertension, coronary artery disease, hyperlipidemia, chronic kidney disease, status post cardiac cath and angioplasty about 6 months ago, cardiomyopathy, LV function about 25% was admitted with chief complaints of decreased p.o. intake, generalized weakness and feeling weak and tired and the patient was found to have a very high BUN and creatinine and low bicarb. The patient was started on IV fluids D5W with 3 amps of bicarb at 150 mEq at 70 mL/hour. The patient is not in acute distress. Denies any chest pain or palpitation. Denies any fever or cough. No abdominal pain. No nausea, vomiting or diarrhea. PHYSICAL EXAMINATION: VITAL SIGNS: This afternoon; blood pressure 132/71, pulse 61, respiration 18, temperature 98.3, saturation 95%. Height 4 feet 10 inches and weight is pounds. GENERAL: Mrs. Priest is an 82 years old elderly female, thin built, not in distress. HEENT: Pupils normal, reactive to light and accommodation. Conjunctivae pink. Sclerae anicteric. Tongue is moist. Trachea is midline. LUNGS: Symmetric on both sides. Bilateral breath sounds present. Bilateral basal crackles present. CVS: [place] at the fifth intercostal space, midclavicular line. S1 and S2 audible. No murmur or gallop. ABDOMEN: Normal in appearance, soft, tympanic. No guarding, no rigidity. No hepatosplenomegaly. 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 Nonfocal neuro examination. Cranial nerves II through XII grossly intact. Sensory and motor system is within normal limits. EXTREMITIES: No cyanosis, no clubbing, no edema. MEDICATIONS: Include as follows; Coreg 3.125 mg p.o. b.i.d., Crestor 20 mg at bedtime, aspirin 81 mg daily, subcu heparin 5000 every 12 hours, Nephro-Orquidea 1 tablet daily, Plavix 75 mg daily, Protonix 40 mg IV daily, IV fluids D5W with 150 mEq sodium bicarb at 70 mL/hour, Zofran 4 mg IV every 6 hours p.r.n. LABORATORY DATA: Include as follows as of 11/01/2017; WBC 4.9, hemoglobin 8.9, hematocrit is 26.9, platelets 118. Sodium is 140, potassium 4.1, chloride 109, CO2 14, BUN 113, creatinine 3.4, glucose 112, calcium 7.9, CK-MB is 1.75. Troponin 0.117 and troponin 0.086 this morning and CPK less than 20. ASSESSMENT: In summary, Mrs. Priest is an 82 years old elderly female with a history of hypertension, hyperlipidemia, coronary artery disease status post angioplasty over 6 months ago, cardiomyopathy, chronic kidney disease stage 3 was admitted with generalized weakness and chest discomfort and also decreased p.o. intake and poor appetite, low bicarb and increased BUN, creatinine. 1. Acute renal failure on chronic kidney disease 3, chronic kidney disease 3 is most likely secondary to hypertensive nephrosclerosis. 2. Hypertension. Blood pressure is stable. 3. Metabolic acidosis most likely secondary to acute renal failure. 4. Coronary artery disease with chest discomfort rule out acute coronary syndrome, troponin x3 was negative so far less likely. 5. Cardiomyopathy secondary to coronary artery disease. PLAN: Continue IV fluids D5W with sodium bicarb 150 mEq/L. We will decrease IV fluids to 42 mL per hour as requested by Cardiology recommendations and Dr. Bravo's recommendation this afternoon and also we will continue to monitor CBC and CMP. We will also add Lasix 20 mg p.o. b.i.d. We will follow with you. Once bicarb is corrected, we will consider to DC IV fluids. Thank you for allowing me to participate in your patient's care. Oneil Ron MD
[2017-11-03 07:34] LABS: BASO % 0.1 % (0.0-2.0); EOS # 0.6 K/uL (0.0-0.7); EOS % 10.7 % (0.0-4.0); HEMOGLOBIN 9.7 g/dL (11.0-16.0); LYMPH # 2.4 K/uL (1.0-4.3); MEAN CELL VOLUME 77.9 fL (81.0-99.0); MEAN CORPUSCULAR HEMOGLOBIN 25.8 pg (27.0-31.0); MEAN CORPUSCULAR HGB CONC 33.1 g/dL (33.0-37.0); MEAN PLATELET VOLUME 9.2 fL (7.2-11.7); MONO # 0.5 K/uL (0.0-0.8); MONO % 8.6 % (0.0-10.0); NEUT # 2.3 K/uL (1.8-7.0); NEUT % 39.6 % (50.0-75.0); RBC 3.76 Mil/uL (3.80-5.20); RED CELL DISTRIBUTION WIDTH 14.4 % (11.5-14.5); WHITE BLOOD COUNT 5.7 K/uL (4.8-10.8)
[2017-11-03 08:17] LABS: ALB/GLOB RATIO 0.9 (1.0-2.1); ALBUMIN 3.5 g/dL (3.5-5.0); CALCIUM 7.9 mg/dl (8.6-10.4)
--- NOTE | 2017-11-03 08:44 | CP.PCM.PN ---
Subjective - Date & Time of Evaluation Date of Evaluation: 11/03/17 Time of Evaluation: 08:43 - Subjective Subjective: pt is seen and examined, follow up consult is dictated #[id number] Objective - Vital Signs/Intake and Output Vital Signs (last 24 hours): Temp Pulse Resp BP Pulse Ox 97.9 F 63 20 142/74 97 11/03/17 07:00 11/03/17 07:47 11/03/17 07:00 11/03/17 07:00 11/03/17 07:00 Intake and Output: 11/03/17 11/03/17 06:59 18:59 Intake Total 260 Output Total 1425 Balance -1165 - Medications Medications: Current Medications Aspirin (Ecotrin) 81 mg PO DAILY [facility] Last Admin: 11/02/17 10:19 Dose: 81 mg Carvedilol (Coreg) 3.125 mg PO BID [facility] Last Admin: 11/02/17 17:40 Dose: 3.125 mg Clopidogrel Bisulfate (Plavix) 75 mg PO DAILY [facility] Last Admin: 11/02/17 10:19 Dose: 75 mg Furosemide (Lasix) 20 mg PO BID [facility] Last Admin: 11/02/17 17:40 Dose: 20 mg Heparin Sodium (Porcine) (Heparin) 5,000 units SC Q12 [facility] Last Admin: 11/02/17 21:33 Dose: 5,000 units Ondansetron HCl (Zofran Inj) 4 mg IVP Q6H PRN PRN Reason: Nausea/Vomiting Last Admin: 11/01/17 20:06 Dose: 4 mg Pantoprazole Sodium (Protonix Inj) 40 mg IVP DAILY [facility] Last Admin: 11/02/17 10:16 Dose: 40 mg Rosuvastatin Calcium (Crestor) 20 mg PO HS [facility] Last Admin: 11/02/17 21:33 Dose: 20 mg Vitamin B Complex/Vit C/Folic Acid (Nephro-Orquidea) 1 tab PO DAILY [facility] Last Admin: 11/02/17 10:18 Dose: 1 tab - Labs Labs: 11/03/17 07:18 11/03/17 07:18
[2017-11-03] MEDS: Multivitamin Vitamin B Complex (Nephro-Vite) Tab PO SCH (09:53)
--- NOTE | 2017-11-03 12:28 | CP.PCM.PN ---
Subjective - Date & Time of Evaluation Date of Evaluation: 11/03/17 Time of Evaluation: 12:25 - Subjective Subjective: PT IMPROVING. AFEBRILE. BUN 75/ CREAT 2.8 POOT APPETITE. FRY D/RUBEN. Objective - Vital Signs/Intake and Output Vital Signs (last 24 hours): Temp Pulse Resp BP Pulse Ox 97.7 F 70 18 122/66 98 11/03/17 09:31 11/03/17 11:11 11/03/17 09:31 11/03/17 09:54 11/03/17 11:11 Intake and Output: 11/03/17 11/03/17 06:59 18:59 Intake Total 260 Output Total 1425 450 Balance -1165 -450 - Medications Medications: Current Medications Aspirin (Ecotrin) 81 mg PO DAILY [facility] Last Admin: 11/03/17 09:53 Dose: 81 mg Carvedilol (Coreg) 3.125 mg PO BID [facility] Last Admin: 11/03/17 09:54 Dose: 3.125 mg Clopidogrel Bisulfate (Plavix) 75 mg PO DAILY [facility] Last Admin: 11/03/17 09:53 Dose: 75 mg Furosemide (Lasix) 20 mg PO BID [facility] Last Admin: 11/03/17 09:54 Dose: 20 mg Heparin Sodium (Porcine) (Heparin) 5,000 units SC Q12 [facility] Last Admin: 11/03/17 09:53 Dose: 5,000 units Ondansetron HCl (Zofran Inj) 4 mg IVP Q6H PRN PRN Reason: Nausea/Vomiting Last Admin: 11/01/17 20:06 Dose: 4 mg Pantoprazole Sodium (Protonix Inj) 40 mg IVP DAILY [facility] Last Admin: 11/03/17 09:53 Dose: 40 mg Rosuvastatin Calcium (Crestor) 20 mg PO HS [facility] Last Admin: 11/02/17 21:33 Dose: 20 mg Vitamin B Complex/Vit C/Folic Acid (Nephro-Orquidea) 1 tab PO DAILY [facility] Last Admin: 11/03/17 09:53 Dose: 1 tab - Labs Labs: 11/03/17 07:18 11/03/17 07:18 - Constitutional Appears: No Acute Distress, Chronically Ill - Head Exam Head Exam: ATRAUMATIC, NORMAL INSPECTION, NORMOCEPHALIC - Eye Exam Eye Exam: EOMI, Normal appearance, PERRL Pupil Exam: NORMAL ACCOMODATION, PERRL - ENT Exam ENT Exam: Mucous Membranes Moist, Normal Exam - Neck Exam Neck Exam: Full ROM, Normal Inspection. absent: Lymphadenopathy - Respiratory Exam Respiratory Exam: Clear to Ausculation Bilateral, NORMAL BREATHING PATTERN - Cardiovascular Exam Cardiovascular Exam: REGULAR RHYTHM, +S1, +S2. absent: Murmur - GI/Abdominal Exam GI & Abdominal Exam: Soft, Normal Bowel Sounds. absent: Tenderness - Extremities Exam Extremities Exam: Full ROM, Normal Capillary Refill, Normal Inspection. absent : Joint Swelling, Pedal Edema - Neurological Exam Neurological Exam: Alert, Awake, CN II-XII Intact, Normal Gait, Oriented x3 - Psychiatric Exam Psychiatric exam: Normal Affect, Normal Mood Assessment and Plan - Assessment and Plan (Free Text) Assessment: IMPROVING. Plan: CT PRESENT TREATMENT.
--- NOTE | 2017-11-03 17:36 | CP.PCM.PN ---
Subjective - Date & Time of Evaluation Date of Evaluation: 11/03/17 Time of Evaluation: 17:33 - Subjective Subjective: Denies any new complaints. No chest pain. some shortness of breath Objective - Vital Signs/Intake and Output Vital Signs (last 24 hours): Temp Pulse Resp BP Pulse Ox 97.8 F 69 20 109/74 96 11/03/17 15:00 11/03/17 16:00 11/03/17 15:00 11/03/17 15:00 11/03/17 15:00 Intake and Output: 11/03/17 11/03/17 06:59 18:59 Intake Total 260 360 Output Total 1425 450 Balance -1165 -90 - Medications Medications: Current Medications Aspirin (Ecotrin) 81 mg PO DAILY [facility] Last Admin: 11/03/17 09:53 Dose: 81 mg Carvedilol (Coreg) 3.125 mg PO BID [facility] Last Admin: 11/03/17 09:54 Dose: 3.125 mg Clopidogrel Bisulfate (Plavix) 75 mg PO DAILY [facility] Last Admin: 11/03/17 09:53 Dose: 75 mg Furosemide (Lasix) 20 mg PO BID [facility] Last Admin: 11/03/17 09:54 Dose: 20 mg Heparin Sodium (Porcine) (Heparin) 5,000 units SC Q12 [facility] Last Admin: 11/03/17 09:53 Dose: 5,000 units Ondansetron HCl (Zofran Inj) 4 mg IVP Q6H PRN PRN Reason: Nausea/Vomiting Last Admin: 11/01/17 20:06 Dose: 4 mg Pantoprazole Sodium (Protonix Inj) 40 mg IVP DAILY [facility] Last Admin: 11/03/17 09:53 Dose: 40 mg Rosuvastatin Calcium (Crestor) 20 mg PO HS [facility] Last Admin: 11/02/17 21:33 Dose: 20 mg Vitamin B Complex/Vit C/Folic Acid (Nephro-Orquidea) 1 tab PO DAILY [facility] Last Admin: 11/03/17 09:53 Dose: 1 tab - Labs Labs: 11/03/17 07:18 11/03/17 07:18 - Head Exam Head Exam: NORMOCEPHALIC - Neck Exam Neck Exam: Normal Inspection - Respiratory Exam Respiratory Exam: NORMAL BREATHING PATTERN Additional comments: Right sided fine crackles at the base and mid zone. - Extremities Exam Extremities Exam: Normal Inspection - Neurological Exam Neurological Exam: Alert, Altered Assessment and Plan (1) Chest pain Assessment & Plan: NO MORE CHEST PAIN AMBULATING WITHOUT CHEST PAIN. Status: Acute (2) CAD (coronary artery disease) Assessment & Plan: DAPT COMPLIANCE. Status: Acute (3) CRI (chronic renal insufficiency) Assessment & Plan: IMPROVED AND FOLLOWED BY NEPHROLOGY. Status: Acute (4) Dehydration Assessment & Plan: IMPROVED, MAINTAIN ELECTROLYTE BALANCE AND WATCH FOR FLUID OVERLOAD. Status: Acute
--- NOTE | 2017-11-03 17:50 | CARD ---
APPROVED REPORT EXAM: Two-dimensional and M-mode echocardiogram with Doppler and color Doppler. Other Information Quality : GoodRhythm : INDICATION Chest pressure Congestive Heart Failure 2D DIMENSIONS IVSd0.9 (0.7-1.1cm)LVDd4.5 (3.9-5.9cm) PWd1.0 (0.7-1.1cm)LVDs3.9 (2.5-4.0cm) FS (%) 12.9 %LVEF (%)20.0 (>50%) Aortic Valve AI P 1/2 [id number] Mitral Valve MV E [id number]/sE/A ratio0.0 TDI E/Lateral E'0.0E/Medial E'0.0 LEFT VENTRICLE The left ventricle is normal size. There is normal left ventricular wall thickness. The ejection fraction is moderately to severely impaired. Regional wall motion abnormalities noted. RIGHT VENTRICLE The right ventricle is normal size. ATRIA The left atrium size is normal. The right atrium size is normal. AORTIC VALVE There is trace to mild aortic regurgitation. MITRAL VALVE Mitral regurgitation is trace. TRICUSPID VALVE There is mild tricuspid regurgitation. PERICARDIAL EFFUSION There is a small circumferential pericardial effusion. <Conclusion> Moderate to severe LV systolic dysfunction. Anterior and apical hypokinesis. Small pericardial effusison. Trace to mild AR. Normal chamber size.
--- NOTE | 2017-11-04 00:22 | PN ---
DATE: 11/03/2017 FOLLOWUP RENAL CONSULTATION LOCATION: The patient is located in room 565, bed A. REQUESTED BY: Marilin Priest MD REASON FOR FOLLOWUP: Acute renal failure, chronic kidney disease. HISTORY OF PRESENT ILLNESS: Mrs. Priest is an 82-year-old elderly female with a past medical history significant for longstanding hypertension, hyperlipidemia, coronary artery disease, status post angioplasty, chronic kidney disease, CKD 4, CHF, cardiomyopathy who was admitted with chief complaints of not feeling well, decreased appetite, weakness, and found to have a low bicarb and also increased BUN and creatinine. The patient is being treated for acute renal failure and for dehydration. The patient is feeling slightly better, not in distress. The patient is off IV fluids last night after improving bicarb from 10 to 29, not in distress. PHYSICAL EXAMINATION: VITAL SIGNS: This morning as follows: Blood pressure 122/66, pulse 70, respirations 18, temperature 97.7, saturation 98%. Height 4 feet 10 inches, weight is 99 pounds. GENERAL: Mrs. Priest is an 82-year-old elderly female, thin built, not in acute distress. HEENT: Pupils normal and reactive to light and accommodation. Conjunctivae pink. Sclerae anicteric. Tongue is moist. Trachea is midline. LUNGS: Symmetric on both sides. Bilateral breath sounds present. Bilateral basal crackles present. CVS: [place] at the fifth intercostal space, midclavicular line. S1, S2 audible. No murmur or gallop. ABDOMEN: Normal in appearance, soft, tympanic. No guarding. No rigidity. No hepatosplenomegaly. 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 Nonfocal neuro examination. Cranial nerves II through XII grossly intact. Sensory and motor system is within normal limits. EXTREMITIES: No cyanosis, no clubbing, no edema. MEDICATIONS: Her current medications include as follows, Coreg 3.125 mg p.o. b.i.d., Crestor 20 mg at bedtime, aspirin 81 mg daily, subcu heparin 5000 every 12 hours, Lasix 20 mg p.o. b.i.d., Nephro-Orquidea 1 tablet daily, Plavix 75 mg p.o. daily, Protonix 40 mg IV piggyback daily, Zofran 4 mg IV every 6 hours p.r.n. LABORATORY DATA: Include as follows, as of 11/03/2017: WBC 5.7, hemoglobin 9.7, hematocrit 29.3, MCV 77.9, platelets 148. Sodium 141, potassium 3.5, chloride 94, CO2 32, BUN 75, creatinine 2.8, glucose 102, calcium 7.9. Total bili 0.4, AST 32, ALT 28, alkaline phosphatase 65, total protein 7.3, albumin is 3.5. Other laboratory data: Echocardiogram as of 11/01/2017, left ventricle is normal in size. There is normal left ventricular wall thickness, ejection fraction is moderate to severely impaired, no anterior and apical hypokinesia, small pericardial effusion, trace to mild AR, normal chamber size, ejection fraction about 20%. IMPRESSION: In summary, Mrs. Priest is an 82-year-old elderly female with a history of hypertension, hyperlipidemia, coronary artery disease, status post angioplasty, cardiomyopathy, chronic kidney disease with increased BUN and creatinine, low bicarb, and also decreased appetite and weakness. 1. Acute renal failure on chronic kidney disease. Renal function is slowly improving with gentle hydration. 2. Status post metabolic acidosis secondary to acute renal failure. 3. Cardiomyopathy. 4. Hypertension. 5. Anemia, rule out iron-deficiency anemia. 6. Secondary hyperparathyroidism secondary to renal failure. We will check iron, TIBC, ferritin level in a.m. We will add Epogen 10,000 units subcu x1 dose in a.m. PLAN: Continue her medications Nephrocaps, and we will consider adding Epogen. Thank you for allowing me to participate in your patient's care. Oneil Ron MD
[2017-11-04] MEDS: Multivitamin Vitamin B Complex (Nephro-Vite) Tab PO SCH (10:17)
--- NOTE | 2017-11-04 12:28 | CP.PCM.PN ---
Subjective - Date & Time of Evaluation Date of Evaluation: 11/04/17 Time of Evaluation: 12:28 - Subjective Subjective: pt is seen and examined, follow up consult is dictated #[id number] Objective - Vital Signs/Intake and Output Vital Signs (last 24 hours): Temp Pulse Resp BP Pulse Ox 98 F 87 18 138/92 H 92 L 11/04/17 08:31 11/04/17 08:31 11/04/17 08:31 11/04/17 10:17 11/04/17 08:31 Intake and Output: 11/04/17 11/04/17 06:59 18:59 Intake Total 480 Balance 480 - Medications Medications: Current Medications Aspirin (Ecotrin) 81 mg PO DAILY [facility] Last Admin: 11/04/17 10:17 Dose: 81 mg Carvedilol (Coreg) 3.125 mg PO BID [facility] Last Admin: 11/04/17 10:17 Dose: 3.125 mg Clopidogrel Bisulfate (Plavix) 75 mg PO DAILY [facility] Last Admin: 11/04/17 10:17 Dose: 75 mg Furosemide (Lasix) 20 mg PO BID [facility] Last Admin: 11/04/17 10:17 Dose: 20 mg Ondansetron HCl (Zofran Inj) 4 mg IVP Q6H PRN PRN Reason: Nausea/Vomiting Last Admin: 11/01/17 20:06 Dose: 4 mg Pantoprazole Sodium (Protonix Inj) 40 mg IVP DAILY [facility] Last Admin: 11/04/17 10:17 Dose: 40 mg Rosuvastatin Calcium (Crestor) 20 mg PO HS [facility] Last Admin: 11/03/17 21:22 Dose: 20 mg Vitamin B Complex/Vit C/Folic Acid (Nephro-Orquidea) 1 tab PO DAILY [facility] Last Admin: 11/04/17 10:17 Dose: 1 tab - Labs Labs: 11/03/17 07:18 11/03/17 07:18
--- NOTE | 2017-11-04 13:08 | CP.PCM.PN ---
Subjective - Date & Time of Evaluation Date of Evaluation: 11/04/17 Time of Evaluation: 13:05 - Subjective Subjective: CONDITION SAME. APPETITE IMPROVING. GENERAL DEBILITY. DEHYDRATION. CRF. CAD. Objective - Vital Signs/Intake and Output Vital Signs (last 24 hours): Temp Pulse Resp BP Pulse Ox 98 F 87 18 138/92 H 92 L 11/04/17 08:31 11/04/17 08:31 11/04/17 08:31 11/04/17 10:17 11/04/17 08:31 Intake and Output: 11/04/17 11/04/17 06:59 18:59 Intake Total 480 Balance 480 - Medications Medications: Current Medications Aspirin (Ecotrin) 81 mg PO DAILY [facility] Last Admin: 11/04/17 10:17 Dose: 81 mg Carvedilol (Coreg) 3.125 mg PO BID [facility] Last Admin: 11/04/17 10:17 Dose: 3.125 mg Clopidogrel Bisulfate (Plavix) 75 mg PO DAILY [facility] Last Admin: 11/04/17 10:17 Dose: 75 mg Furosemide (Lasix) 20 mg PO BID [facility] Last Admin: 11/04/17 10:17 Dose: 20 mg Ondansetron HCl (Zofran Inj) 4 mg IVP Q6H PRN PRN Reason: Nausea/Vomiting Last Admin: 11/01/17 20:06 Dose: 4 mg Pantoprazole Sodium (Protonix Inj) 40 mg IVP DAILY [facility] Last Admin: 11/04/17 10:17 Dose: 40 mg Rosuvastatin Calcium (Crestor) 20 mg PO HS [facility] Last Admin: 11/03/17 21:22 Dose: 20 mg Vitamin B Complex/Vit C/Folic Acid (Nephro-Orquidea) 1 tab PO DAILY [facility] Last Admin: 11/04/17 10:17 Dose: 1 tab - Labs Labs: 11/03/17 07:18 11/03/17 07:18 - Constitutional Appears: No Acute Distress, Chronically Ill - Head Exam Head Exam: ATRAUMATIC, NORMAL INSPECTION, NORMOCEPHALIC - Eye Exam Eye Exam: EOMI, Normal appearance, PERRL Pupil Exam: NORMAL ACCOMODATION, PERRL - ENT Exam ENT Exam: Mucous Membranes Moist, Normal Exam - Neck Exam Neck Exam: Full ROM, Normal Inspection. absent: Lymphadenopathy - Respiratory Exam Respiratory Exam: Clear to Ausculation Bilateral, NORMAL BREATHING PATTERN - Cardiovascular Exam Cardiovascular Exam: REGULAR RHYTHM, +S1, +S2. absent: Murmur - GI/Abdominal Exam GI & Abdominal Exam: Soft, Normal Bowel Sounds. absent: Tenderness - Extremities Exam Extremities Exam: Full ROM, Normal Capillary Refill, Normal Inspection. absent : Joint Swelling, Pedal Edema Assessment and Plan - Assessment and Plan (Free Text) Assessment: SAAME. Plan: FOR PT. HYDRATE. CT OTHER TREATMENT.
--- NOTE | 2017-11-04 18:05 | CP.PCM.PN ---
Subjective - Date & Time of Evaluation Date of Evaluation: 11/04/17 Time of Evaluation: 18:02 - Subjective Subjective: Feeling better, having dinner. Family bed side. Objective - Vital Signs/Intake and Output Vital Signs (last 24 hours): Temp Pulse Resp BP Pulse Ox 98.2 F 86 20 122/70 95 11/04/17 15:00 11/04/17 15:00 11/04/17 15:00 11/04/17 17:39 11/04/17 15:00 Intake and Output: 11/04/17 11/04/17 06:59 18:59 Intake Total 480 300 Balance 480 300 - Medications Medications: Current Medications Aspirin (Ecotrin) 81 mg PO DAILY [facility] Last Admin: 11/04/17 10:17 Dose: 81 mg Carvedilol (Coreg) 3.125 mg PO BID [facility] Last Admin: 11/04/17 17:39 Dose: 3.125 mg Clopidogrel Bisulfate (Plavix) 75 mg PO DAILY [facility] Last Admin: 11/04/17 10:17 Dose: 75 mg Furosemide (Lasix) 20 mg PO BID [facility] Last Admin: 11/04/17 17:39 Dose: 20 mg Ondansetron HCl (Zofran Inj) 4 mg IVP Q6H PRN PRN Reason: Nausea/Vomiting Last Admin: 11/01/17 20:06 Dose: 4 mg Pantoprazole Sodium (Protonix Ec Tab) 40 mg PO DAILY [facility] Rosuvastatin Calcium (Crestor) 10 mg PO HS [facility] Vitamin B Complex/Vit C/Folic Acid (Nephro-Orquidea) 1 tab PO DAILY [facility] Last Admin: 11/04/17 10:17 Dose: 1 tab - Labs Labs: 11/03/17 07:18 11/03/17 07:18 - Head Exam Head Exam: NORMOCEPHALIC - Neck Exam Neck Exam: Normal Inspection - Respiratory Exam Respiratory Exam: NORMAL BREATHING PATTERN - Cardiovascular Exam Cardiovascular Exam: REGULAR RHYTHM - Extremities Exam Extremities Exam: Normal Inspection Assessment and Plan (1) Chest pain Assessment & Plan: Resolved. Status: Acute (2) CAD (coronary artery disease) Assessment & Plan: Reviewed cat/PCI and echo films at [facility]. Some LV function improvement. However further assessment needs to be done. This can be done as out patient. Status: Acute (3) CRI (chronic renal insufficiency) Assessment & Plan: Improving. Nephrology on board. Status: Acute (4) Dehydration Assessment & Plan: Improved, Now restrict fluids to 1.5/litter/Day. Status: Acute
--- NOTE | 2017-11-04 22:13 | CARD ---
APPROVED REPORT EKG Measurement Heart [id number] [place] 168P36 [id number] <Conclusion> Normal sinus rhythm Low voltage QRS Possible Inferior infarct, age undetermined Cannot rule out Anteroseptal infarct, age undetermined T wave abnormality, consider lateral ischemia Abnormal ECG
--- NOTE | 2017-11-04 22:14 | CARD ---
APPROVED REPORT EKG Measurement Heart [id number] [place] 168P33 [id number] <Conclusion> Normal sinus rhythm Low voltage QRS Inferior infarct, age undetermined Anteroseptal infarct, age undetermined T wave abnormality, consider lateral ischemia Abnormal ECG
--- NOTE | 2017-11-04 22:15 | CARD ---
APPROVED REPORT EKG Measurement Heart [id number] [place] 166P29 [id number] <Conclusion> Normal sinus rhythm Inferior infarct, age undetermined Anterolateral infarct, age undetermined Abnormal ECG
--- NOTE | 2017-11-04 23:00 | CARD ---
APPROVED REPORT EKG Measurement Heart [id number] [place] 168P60 [id number] <Conclusion> Sinus rhythm with premature atrial complexes with aberrant conduction Rightward axis Cannot rule out Anteroseptal infarct, age undetermined ST & T wave abnormality, Abnormal ECG
--- NOTE | 2017-11-04 23:01 | CARD ---
APPROVED REPORT EKG Measurement Heart [id number] [place] 164P35 [id number] <Conclusion> Normal sinus rhythm Possible Left atrial enlargement Possible Inferior infarct, age undetermined Anterior infarct, age undetermined ST & T wave abnormality, consider lateral ischemia Abnormal ECG
--- NOTE | 2017-11-04 23:01 | CARD ---
APPROVED REPORT EKG Measurement Heart [id number] [place] 160P35 [id number] <Conclusion> Normal sinus rhythm Inferior infarct, age undetermined Anteroseptal infarct, age undetermined T wave abnormality, consider lateral ischemia Abnormal ECG
[2017-11-05 06:42] LABS: HEMOGLOBIN 10.9 g/dL (11.0-16.0); MEAN CELL VOLUME 78.4 fL (81.0-99.0); MEAN CORPUSCULAR HEMOGLOBIN 25.9 pg (27.0-31.0); MEAN PLATELET VOLUME 9.5 fL (7.2-11.7); RBC 4.2 Mil/uL (3.80-5.20); RED CELL DISTRIBUTION WIDTH 14.4 % (11.5-14.5); WHITE BLOOD COUNT 7.5 K/uL (4.8-10.8)
[2017-11-05 06:55] LABS: CALCIUM 8.7 mg/dl (8.6-10.4)
--- NOTE | 2017-11-05 06:59 | PN ---
DATE: 11/04/2017. FOLLOWUP RENAL CONSULTATION LOCATION: Room 565, bed A. REQUESTED BY: Dr. Marilin Priest. REASON FOR RENAL CONSULTATION: Acute renal failure, chronic kidney disease, anemia and for metabolic alkalosis. HISTORY OF PRESENT ILLNESS: Mrs. Priest is an 82 years old elderly female with a past medical history significant for longstanding hypertension, hyperlipidemia, chronic kidney disease stage 4, coronary artery disease status post angioplasty, cardiomyopathy with LV function about 20%, was admitted with chief complaints of weakness and decreased p.o. intake and dehydration and increased BUN and creatinine, low bicarb about 10. The patient was initially started with IV fluids with sodium bicarb drip and her serum bicarb improved and bicarb IV fluids was discontinued. The patient is not in acute distress, still complains of poor appetite. No chest pain, no palpitation, no fever, no cough, no abdominal pain. No nausea, vomiting, diarrhea. PHYSICAL EXAMINATION: VITAL SIGNS: As follows; blood pressure 138/92, pulse 74, respirations 20, temperature 98.2, saturation 95%. Height 4 feet 10 inches, weight is 89 pounds. GENERAL: Mrs. Priest is an 82 years old elderly female, thin built, not in distress. HEENT: Pupils normal, reactive to light and accommodation. Conjunctivae pink. Sclerae are anicteric. Tongue is moist. Trachea is midline. LUNGS: Symmetric on both sides. Bilateral breath sounds present. Bilateral basal crackles present. CVS: [place] at the fifth intercostal space, midclavicular line. S1 and S2 audible. No murmur or gallop. ABDOMEN: Normal in appearance, soft, tympanic. No guarding, no rigidity. No hepatosplenomegaly. AMPOULE EXAMINER: The patient is alert, awake and oriented x3. Nonfocal neuro examination. Cranial nerves II through XII grossly intact. Sensory and motor system is within normal limits. EXTREMITIES: No cyanosis, no clubbing, no edema. CURRENT MEDICATIONS: Include as follows; Coreg 3.125 mg p.o. b.i.d., Crestor 10 mg at bedtime, aspirin 81 mg p.o. daily, Lasix 20 mg p.o. b.i.d., Nephro-Orquidea 1 tablet daily, Plavix 75 mg p.o. daily, Protonix 40 mg p.o. daily, Zofran 4 mg IV every 6 hours p.r.n. LABORATORY DATA: No new labs are available for today and Accu-Cheks 129, 109 and 105. ASSESSMENT: In summary, Mrs. Priest is an 82 years old elderly female with hypertension, hyperlipidemia, chronic kidney disease stage 4, coronary artery disease status post angioplasty, cardiomyopathy with left ventricular function 20% was admitted with dehydration, decreased p.o. intake, poor appetite and weakness and low bicarb and increased BUN and creatinine. 1. Acute renal failure on chronic kidney disease. Renal function is slowly improving. 2. Status post metabolic acidosis, bicarb is improved. The patient is off IV bicarb and also will discontinue p.o. Lasix due to increasing bicarb. 3. Metabolic alkalosis. 4. Anemia secondary to renal failure. 5. Cardiomyopathy. 6. Hypertension. Blood pressure is on the borderline. Continue to monitor blood pressure. Hold blood pressure medicine for systolic blood pressure less than 120. 7. Secondary hyperparathyroidism secondary to renal failure. PLAN: Case discussed with Dr. Marilin Priest in rounds for possible DC in a.m. Repeat CBC, BMP in a.m. also. We will follow with you. Thank you for allowing me to participate in your patient's care. Oneil Ron MD
[2017-11-05] MEDS: Multivitamin Vitamin B Complex (Nephro-Vite) Tab PO SCH (09:24)
[2017-11-05] MEDS ORDERED: Pantoprazole 40 mg EC Tab PO SCH (10:00)
--- NOTE | 2017-11-05 12:12 | CP.PCM.PN ---
Subjective - Date & Time of Evaluation Date of Evaluation: 11/05/17 Time of Evaluation: 12:12 - Subjective Subjective: PT SEEN BY DR. Jennie CENRA AND CLEARED FOR D/C HOME TODAY. RX GIVEN TO SOC WORKER FOR PHYSICAL THERAPY TO BE DONE AT [facility]. PER RENAL HOLD OFF ON LASIX. PT ENCOURAGED TO F/U WITH DR. CERNA AND DR. JONES WITHIN 5- 7 DAYS OF D/C. RX REFILL GIVEN FOR PANTOPRAZOLE. NO FURTHER ORDERS. -FOLLOW UP WITH DR. Merari CERNA IN THE OFFICE WITHIN 5-7 DAYS AFTER DISCHARGE---- CALL THE OFFICE TO MAKE YOUR APPOINTMENT. -FOLLOW UP WITH DR. Merari JONES IN THE OFFICE WITHIN 5-7 DAYS AFTER DISCHARGE----CALL THE OFFICE TO MAKE YOUR APPOINTMENT. -CONTINUE GOING TO THE [facility] USUAL. THEY WILL DO PHYSICAL THERAPY WITH YOU 4 TIMES A WEEK TO HELP STRENGTHEN YOUR MUSCLES. -CONTINUE HOME MEDICATIONS USUAL. YOU HAVE BEEN REFILLED PANTOPRAZOLE FOR YOUR STOMACH. -IF YOU HAVE ANY FURTHER QUESTIONS OR CONCERNS, CONTACT DR. CERNA. Objective - Vital Signs/Intake and Output Vital Signs (last 24 hours): Temp Pulse Resp BP Pulse Ox 98.3 F 95 H 18 107/71 98 11/05/17 07:00 11/05/17 08:29 11/05/17 07:00 11/05/17 07:00 11/05/17 07:00 - Medications Medications: Current Medications Aspirin (Ecotrin) 81 mg PO DAILY [facility] Last Admin: 11/05/17 09:25 Dose: 81 mg Carvedilol (Coreg) 3.125 mg PO BID [facility] Last Admin: 11/05/17 09:25 Dose: 3.125 mg Clopidogrel Bisulfate (Plavix) 75 mg PO DAILY [facility] Last Admin: 11/05/17 09:25 Dose: 75 mg Ondansetron HCl (Zofran Inj) 4 mg IVP Q6H PRN PRN Reason: Nausea/Vomiting Last Admin: 11/01/17 20:06 Dose: 4 mg Pantoprazole Sodium (Protonix Ec Tab) 40 mg PO DAILY [facility] Last Admin: 11/05/17 09:24 Dose: 40 mg Rosuvastatin Calcium (Crestor) 10 mg PO HS [facility] Last Admin: 11/04/17 21:18 Dose: 10 mg Vitamin B Complex/Vit C/Folic Acid (Nephro-Orquidea) 1 tab PO DAILY [facility] Last Admin: 11/05/17 09:24 Dose: 1 tab - Labs Labs: 11/05/17 06:36 11/05/17 06:36
--- NOTE | 2017-11-05 12:22 | CP.PCM.PN ---
Subjective - Date & Time of Evaluation Date of Evaluation: 11/05/17 Time of Evaluation: 12:20 - Subjective Subjective: PT IMPROVED. EATING OK. Objective - Vital Signs/Intake and Output Vital Signs (last 24 hours): Temp Pulse Resp BP Pulse Ox 98.3 F 95 H 18 107/71 98 11/05/17 07:00 11/05/17 08:29 11/05/17 07:00 11/05/17 07:00 11/05/17 07:00 - Medications Medications: Current Medications Aspirin (Ecotrin) 81 mg PO DAILY [facility] Last Admin: 11/05/17 09:25 Dose: 81 mg Carvedilol (Coreg) 3.125 mg PO BID [facility] Last Admin: 11/05/17 09:25 Dose: 3.125 mg Clopidogrel Bisulfate (Plavix) 75 mg PO DAILY [facility] Last Admin: 11/05/17 09:25 Dose: 75 mg Ondansetron HCl (Zofran Inj) 4 mg IVP Q6H PRN PRN Reason: Nausea/Vomiting Last Admin: 11/01/17 20:06 Dose: 4 mg Pantoprazole Sodium (Protonix Ec Tab) 40 mg PO DAILY [facility] Last Admin: 11/05/17 09:24 Dose: 40 mg Rosuvastatin Calcium (Crestor) 10 mg PO HS [facility] Last Admin: 11/04/17 21:18 Dose: 10 mg Vitamin B Complex/Vit C/Folic Acid (Nephro-Orquidea) 1 tab PO DAILY [facility] Last Admin: 11/05/17 09:24 Dose: 1 tab - Labs Labs: 11/05/17 06:36 11/05/17 06:36 - Constitutional Appears: No Acute Distress, Chronically Ill - Eye Exam Eye Exam: EOMI, Normal appearance, PERRL Pupil Exam: NORMAL ACCOMODATION, PERRL - ENT Exam ENT Exam: Mucous Membranes Moist, Normal Exam - Respiratory Exam Respiratory Exam: Clear to Ausculation Bilateral, NORMAL BREATHING PATTERN - Cardiovascular Exam Cardiovascular Exam: REGULAR RHYTHM, +S1, +S2. absent: Murmur - GI/Abdominal Exam GI & Abdominal Exam: Soft, Normal Bowel Sounds. absent: Tenderness - Extremities Exam Extremities Exam: Full ROM, Normal Capillary Refill, Normal Inspection. absent : Joint Swelling, Pedal Edema - Back Exam Back Exam: NORMAL INSPECTION Assessment and Plan - Assessment and Plan (Free Text) Assessment: DEHYDRATION. CRF. CAD. Plan: FOR D/C HOME TODAY. F/U IN THE OFFICE 2 WKS.
[2017-11-05 16:27] VITALS: BP 100/61; PULSE 85; RESP 20; TEMP 98.1; O2SAT 95
== END 2017-11-05 17:39 | disposition home or self-care (01) | DRG 292 ==
LOC: C.ER 13:10 → C.9E 14:59 → C.5S 16:41
PROVIDERS: ADMIT Internal Medicine; ATTEND Internal Medicine
DX: I13.0 Hypertensive heart and chronic kidney disease with heart failure and stage 1 through stage 4 chronic kidney disease, or unspecified chronic kidney disease (principal); N17.9 Acute kidney failure, unspecified; E87.4 Mixed disorder of acid-base balance; Z68.1 Body mass index [BMI] 19.9 or less, adult; I50.30 Unspecified diastolic (congestive) heart failure; N18.4 Chronic kidney disease, stage 4 (severe); N25.81 Secondary hyperparathyroidism of renal origin; I42.9 Cardiomyopathy, unspecified; I25.10 Atherosclerotic heart disease of native coronary artery without angina pectoris; I50.9 Heart failure, unspecified; K29.70 Gastritis, unspecified, without bleeding; E86.0 Dehydration; E78.5 Hyperlipidemia, unspecified; D63.1 Anemia in chronic kidney disease; E11.22 Type 2 diabetes mellitus with diabetic chronic kidney disease; Z86.73 Personal history of transient ischemic attack (TIA), and cerebral infarction without residual deficits; Z98.61 Coronary angioplasty status

== ENCOUNTER 2018-01-11 04:00 | Inpatient (IN) | payer MEDICARE, MEDICAID ==
[2018-01-11 04:01] VITALS: BMI 18.5
--- NOTE | 2018-01-11 04:43 | C.PDOC ---
History Of Present Illness 82 year old female with PMHx of CAD s/p MO last year, CHF is brought to the ED by EMS for evaluation of chest pain. As per daughter patient became acutely short of breath associated with CP beginning tonight at 03:00. Patient states this pain is similar to MO last year. EMS were called and given 4 baby ASA, lasix 20 mg IV push and SL nitro x2 en route. Patient states pain still there but improved. Chief Complaint (Nursing): Chest Pain History Per: Patient History/Exam Limitations: no limitations Onset/Duration Of Symptoms: Days Quality: "Pain" Modifying Factors: None Exacerbating Factors: None Alleviating Factors: None Nitro Therapy Administered: 2, Per EMS, Complete Relief Recent travel outside of the [place]: No Additional History Per: Patient Past Medical History Reviewed: Historical Data, Nursing Documentation, Vital Signs Vital Signs: Last Vital Signs Temp 97.9 F 01/11/18 04:12 Pulse 77 01/11/18 04:12 Resp 36 H 01/11/18 04:12 BP 150/87 01/11/18 04:12 Pulse Ox 3 L 01/11/18 06:18 - Medical History PMH: CVA, HTN, Hyperlipidemia, Chronic Kidney Disease Surgical History: No Surg Hx Family History: States: Unknown Family Hx - Social History Hx Tobacco Use: No Hx Alcohol Use: No Hx Substance Use: No Review Of Systems Constitutional: Negative for: Fever, Chills Cardiovascular: Positive for: Chest Pain. Negative for: Palpitations Respiratory: Positive for: Shortness of Breath. Negative for: Cough Gastrointestinal: Negative for: Nausea, Vomiting Neurological: Negative for: Weakness, Numbness, Headache Physical Exam - Physical Exam Appears: Non-toxic, No Acute Distress, Other (small body habitus) Skin: Normal Color, Warm, Dry Head: Atraumatic, Normacephalic Eye(s): bilateral: Normal Inspection Oral Mucosa: Moist Neck: Normal ROM, Supple Chest: Symmetrical Cardiovascular: Rhythm Regular, No JVD Respiratory: Rales (mid lung walters), No Rhonchi, Wheezing (expiratory) Gastrointestinal/Abdominal: Soft, No Tenderness, No Guarding, No Rebound Extremity: Normal ROM, No Tenderness, No Pedal Edema, Capillary Refill (< 2 seconds) Pulses: Left Dorsalis Pedis: Normal, Right Dorsalis Pedis: Normal Neurological/Psych: Oriented x3, Normal Speech Gait: Unable To Assess ED Course And Treatment - Laboratory Results Result Diagrams: 01/11/18 04:56 01/11/18 04:56 ECG: Interpreted By Me, Viewed By Me ECG Rhythm: Sinus Rhythm Interpretation Of ECG: Q in lead III and aVF. Poor R wave progression in all precordian leads indicative of previous inferior wall MO. No acute ST elevation. Compared to EKG from 10/29 no significant changes Rate From EC (BPM) O2 Sat by Pulse Oximetry: 99 (ON RA) Pulse Ox Interpretation: Normal - Radiology CXR: Interpreted by Me, Viewed By Me CXR Interpretation: Yes: Cardiomegaly Medical Decision Making Medical Decision Making: Impression: acute coronary syndrome, possible CHF, rule out pneumonia Plan: * Labs * EKG * CXR * Morphine 2 mg IVP * Nitro 0.4 mg SL Disposition - Disposition Disposition: HOSPITALIZED Disposition Time: 06:58 Condition: CRITICAL - Clinical Impression Clinical Impression: Acute non-ST segment elevation myocardial infarction, Chronic congestive heart failure - Scribe Statement The provider has reviewed the documentation as recorded by the Scribe Emmett Tenorio All medical record entries made by the Scribe were at my direction and personally dictated by me. I have reviewed the chart and agree that the record accurately reflects my personal performance of the history, physical exam, medical decision making, and the department course for this patient. I have also personally directed, reviewed, and agree with the discharge instructions and disposition.
[2018-01-11 04:58] LABS: BASO % 0.2 % (0.0-2.0); EOS # 0.6 K/uL (0.0-0.7); EOS % 8.8 % (0.0-4.0); HEMOGLOBIN 8.1 g/dL (11.0-16.0); LYMPH # 1.5 K/uL (1.0-4.3); MEAN CELL VOLUME 80.9 fL (81.0-99.0); MEAN CORPUSCULAR HEMOGLOBIN 25.8 pg (27.0-31.0); MEAN CORPUSCULAR HGB CONC 31.9 g/dL (33.0-37.0); MEAN PLATELET VOLUME 8.8 fL (7.2-11.7); MONO # 0.4 K/uL (0.0-0.8); MONO % 5.6 % (0.0-10.0); NEUT # 3.9 K/uL (1.8-7.0); NEUT % 61.4 % (50.0-75.0); RBC 3.13 Mil/uL (3.80-5.20); RED CELL DISTRIBUTION WIDTH 15.9 % (11.5-14.5); WHITE BLOOD COUNT 6.3 K/uL (4.8-10.8)
[2018-01-11] MEDS ORDERED: Albuterol 0.083% Inhal Sol (2.5 mg/3 mL) UD INH STA (05:17)
[2018-01-11] MEDS ORDERED: Calcium Gluconate 4.65 mEq/10 ml Inj IVP ONE (05:22)
[2018-01-11] MEDS ORDERED: Sodium Bicarbonate (8.4%) 50 Meq Syringe IVP ONE (05:24)
[2018-01-11] MEDS ORDERED: Dextrose 50% SYRINGE Inj (50 ml) IV STA (05:24)
[2018-01-11] MEDS ORDERED: (Novolin R) Insulin Human Regular 100 units/ml vial IV ONE (05:25)
[2018-01-11] MEDS ORDERED: Albuterol 0.083% Inhal Sol (2.5 mg/3 mL) UD ONE (05:35)
[2018-01-11 05:38] LABS: TROPONIN I 5.05 ng/mL (0.00-0.120)
[2018-01-11] MEDS ORDERED: Calcium Gluconate 4.65 mEq/10 ml Inj ONE (05:38)
[2018-01-11] MEDS ORDERED: Sodium Bicarbonate (8.4%) 50 Meq Syringe ONE (05:42)
[2018-01-11] MEDS ORDERED: (Novolin R) Insulin Human Regular 100 units/ml vial ONE (05:43)
[2018-01-11] MEDS ORDERED: Nitroglycerin 2% Ointment Foilpak UD TOP STA (05:52)
[2018-01-11] MEDS ORDERED: Dextrose 50% SYRINGE Inj (50 ml) ONE (05:57)
--- NOTE | 2018-01-11 06:20 | CP.PCM.CON ---
History of Present Illness - History of Present Illness History of Present Illness: Attending: Dr Quezada PMD: Dr Ha Gaston Dairy Hand: Anson Bravo [facility] Clergy: Dr Ron Reason for Consult: Critical care management Chief Complaint: Chest Pain/SOB The patient was seen and examined in the ED HPI:The hx was obtained from the patients daughter and after review of the medical records. She is an 82 years old female who was brought to the ED with A one hr hx of Severe SOB associated with mid chest pain after getting up and going to the bathroom. The pain continued at rest and the patient stated that it was as that pain as when she suffered a AL in 2017. EMS was called.. En route to theED she received ASA, IV lasix and Sl NTG. No nausea/ vomits nor coughing. PMH: CVA, HTN, Hyperlipidemia, Chronic Kidney Disease; AL in 05/2017; PSH: Hysterectomy; Carotid Artery Surgery SH: No illegl drug use; No alcohol; No smoking; live with family FH: States: Unknown Family Hx Allergies: NKDA Medication: Reviewed Review of Systems - Review of Systems Systems not reviewed;Unavailable: Respiratory Distress Review of Systems: Review of system is limited because of SOB. - Cardiovascular Cardiovascular: Chest Pain, Dyspnea, Paroxysmal Nocturnal Dyspnea - Respiratory Respiratory: Dyspnea Past Patient History - Past Medical History & Family History Past Medical History?: Yes - Past Social History Smoking Status: Never Smoked Chewing Tobacco Use: No Cigar Use: No Alcohol: None Drugs: Denies Home Situation {Lives}: With Family - CARDIAC Hx Hypercholesterolemia: Yes Hx Hypertension: Yes - PULMONARY Hx Respiratory Disorders: No - NEUROLOGICAL HX Cerebrovascular Accident: Yes - HEENT Hx HEENT Problems: No - RENAL Hx Chronic Kidney Disease: Yes - ENDOCRINE/METABOLIC Hx Diabetes Mellitus Type 2: Yes - HEMATOLOGICAL/ONCOLOGICAL Hx Blood Disorders: No - INTEGUMENTARY Hx Dermatological Problems: No - MUSCULOSKELETAL/RHEUMATOLOGICAL Hx Musculoskeletal Disorders: No Hx Falls: No - GASTROINTESTINAL Hx Gastrointestinal Disorders: No - GENITOURINARY/GYNECOLOGICAL Hx Genitourinary Disorders: No - PSYCHIATRIC Hx Substance Use: No - SURGICAL HISTORY Hx Surgeries: Yes Hx Hysterectomy: Yes Other/Comment: Carotid artery sx - ANESTHESIA Hx Anesthesia: Yes Hx Anesthesia Reactions: No Hx Malignant Hyperthermia: No Meds Allergies/Adverse Reactions: Allergies Allergy/AdvReac Type Severity Reaction Status Date / Time No Known Allergies Allergy Verified 01/11/18 04:20 Physical Exam - Constitutional Appears: In Acute Distress - Head Exam Head Exam: ATRAUMATIC, NORMAL INSPECTION, NORMOCEPHALIC - Eye Exam Eye Exam: EOMI, Normal appearance Pupil Exam: NORMAL ACCOMODATION, PERRL - ENT Exam ENT Exam: Mucous Membranes Moist, Normal Exam, Normal External Ear Exam - Neck Exam Neck exam: Positive for: Full Rom, Normal Inspection. Negative for: Lymphadenopathy, Tenderness - Respiratory Exam Respiratory Exam: absent: Rhonchi, Wheezes Additional comments: Rales in whole of both lung walters - Cardiovascular Exam Cardiovascular Exam: REGULAR RHYTHM, RRR, +S1, +S2 - GI/Abdominal Exam GI & Abdominal Exam: Normal Bowel Sounds, Soft. absent: Mass, Organomegaly, Tenderness - Rectal Exam Rectal Exam: Deferred - Extremities Exam Extremities exam: Positive for: full ROM, normal inspection. Negative for: joint swelling, pedal edema - Back Exam Back exam: NORMAL INSPECTION. absent: CVA tenderness (L), CVA tenderness (R) - Neurological Exam Neurological exam: Alert, CN II-XII Intact, Reflexes Normal - Psychiatric Exam Psychiatric exam: Normal Affect - Skin Skin Exam: Dry, Intact, Normal Color, Warm Results - Vital Signs Recent Vital Signs: Last Vital Signs Temp 97.9 F 01/11/18 04:12 Pulse 77 01/11/18 04:12 Resp 36 H 01/11/18 04:12 BP 150/87 01/11/18 04:12 Pulse Ox 99 01/11/18 05:52 - Labs Result Diagrams: 01/11/18 04:56 01/11/18 04:56 Labs: Laboratory Results - last 24 hr 01/11/18 01/11/18 04:56 04:56 WBC 6.3 RBC 3.13 L Hgb 8.1 L D Hct 25.3 L MCV 80.9 L D MCH 25.8 L MCHC 31.9 L RDW 15.9 H Plt Count 169 MPV 8.8 Neut % (Auto) 61.4 Lymph % (Auto) 24.0 [place] % (Auto) 5.6 Eos % (Auto) 8.8 H Baso % (Auto) 0.2 Neut # (Auto) 3.9 Lymph # (Auto) 1.5 [place] # (Auto) 0.4 Eos # (Auto) 0.6 Baso # (Auto) 0.0 Sodium 142 Potassium 6.1 H Chloride 112 H D Carbon Dioxide 17 L Anion Gap 19 BUN 44 H Creatinine 2.8 H Est GFR ( Amer) 19 Est GFR (Non-Af Amer) 16 Random Glucose 124 H Calcium 9.0 Total Bilirubin 0.4 AST 56 H D ALT 63 H D Alkaline Phosphatase 106 Troponin I 5.0500 H* NT-Pro-B Natriuret Pep 70180 H Total Protein 7.8 Albumin 4.0 Globulin 3.8 Albumin/Globulin Ratio 1.0 - EKG Data EKG comments: Sinus Rhythjm 93/min with Q wave in leads III and aVf - Imaging and Cardiology Chest x-ray Status: Image reviewed by me Additional comment: Increased cardiac Silhouette Interstitial infiltrate diffuse in whole of both lung walters Assessment & Plan - Assessment and Plan (Free Text) Assessment: #. NSTEMI #. Pulmonary edema #. CKD #. Hyperkalemia #. Anemia Plan: 82 years old female who was brought to the ED with A one hr hx of Severe SOB associated with mid chest pain after getting up and going to the bathroom. The pain continued at rest and the patient stated that it was as that pain as when she suffered a AL in 2017. EMS was called.. En route to the ED she received ASA , IV lasix and Sl NTG. No nausea/ vomits nor coughing. #. NSTEMI - Consult cardiology Dr Bravo - ASA/Plavix/Heparin/Coreg/Lipitor ECHO 11/01/16: Moderate to severe LV systolic dysfunction Anterior and Apical hypokinesis Small pericardial effusion trace to mild AR - Follow Troponin #. Pulmonary edema with acute CHF systolic dysfunction - cardiology on consult - lasix/Coreg #. CKD - Consult Nephrology Dr Gudino #. Hyperkalemia - Calcium Gluconate/Sodium Bicarbonate/D50 with Regular Insulin and Albuterol given in ED - Follow Electrolytes #. Anemia of chronic kidney disease - Follow Hb #. DVT Prophylaxis: Patient on IV Heparin #. Code status: unknown, Full code - Date & Time Date: 01/11/18 Time: 06:20
[2018-01-11] MEDS ORDERED: Nitroglycerin 2% Ointment Foilpak UD TOP ONE (06:34)
[2018-01-11] MEDS ORDERED: Heparin25000 units/250ml 1/2NS 25,000 UNITS/250 ML BAG IV ONE (06:41)
[2018-01-11 07:46] LABS: PROTHROMBIN TIME 11.2 SECONDS (9.7-12.2)
[2018-01-11] MEDS ORDERED: Heparin25000 units/250ml 1/2NS 25,000 UNITS/250 ML BAG IV PRN (10:00)
--- NOTE | 2018-01-11 10:08 | RAD ---
PROCEDURE: CHEST RADIOGRAPH, 1 VIEW HISTORY: chest pain COMPARISON: Comparison chest dated 10/31/2017 FINDINGS: LUNGS: Mild pulmonary venous congestive changes felt be present with more confluent opacities in both lower lung zones are and possible small bilateral effusions PLEURA: As above. No pneumothorax. CARDIOVASCULAR: Marked cardiomegaly. OSSEOUS STRUCTURES: No significant abnormalities. VISUALIZED UPPER ABDOMEN: Normal. OTHER FINDINGS: None. IMPRESSION: Mild pulmonary venous congestive changes felt be present with more confluent opacities in both lower lung zones are and possible small bilateral effusions Marked cardiomegaly
[2018-01-11] MEDS: Pantoprazole 40 mg EC Tab PO SCH (10:49)
[2018-01-11 13:38] LABS: CALCIUM 9.1 mg/dl (8.6-10.4)
[2018-01-11 13:53] LABS: TROPONIN I 9.76 ng/mL (0.00-0.120)
--- NOTE | 2018-01-11 14:30 | CP.PCM.CON ---
History of Present Illness - History of Present Illness History of Present Illness: pt is seen and examined, full consult is dictated #[id number] 1. CKD-4 2. anemia sec to ckd, r/o fe deficiency 3. CHF 4. NSTEMI 5. HTN 6. CAD s/p stent in 2017 7. CVA transfuse 1 unit prbc lasix 40 ivp prn check fe,tibc, ferritin, stool ob follow up with cardiology for possible cath c/w iv heparin check po4, pth intact, u/a Past Patient History - Past Medical History & Family History Past Medical History?: Yes - Past Social History Smoking Status: Never Smoked - CARDIAC Hx Hypercholesterolemia: Yes Hx Hypertension: Yes - PULMONARY Hx Respiratory Disorders: No - NEUROLOGICAL HX Cerebrovascular Accident: Yes - HEENT Hx HEENT Problems: No - RENAL Hx Chronic Kidney Disease: Yes - ENDOCRINE/METABOLIC Hx Diabetes Mellitus Type 2: Yes - HEMATOLOGICAL/ONCOLOGICAL Hx Blood Disorders: No - INTEGUMENTARY Hx Dermatological Problems: No - MUSCULOSKELETAL/RHEUMATOLOGICAL Hx Musculoskeletal Disorders: No Hx Falls: No - GASTROINTESTINAL Hx Gastrointestinal Disorders: No - GENITOURINARY/GYNECOLOGICAL Hx Genitourinary Disorders: No - PSYCHIATRIC Hx Psychophysiologic Disorder: No Hx Substance Use: No - SURGICAL HISTORY Hx Surgeries: Yes Hx Hysterectomy: Yes Other/Comment: Carotid artery sx - ANESTHESIA Hx Anesthesia: Yes Hx Anesthesia Reactions: No Hx Malignant Hyperthermia: No Meds Allergies/Adverse Reactions: Allergies Allergy/AdvReac Type Severity Reaction Status Date / Time No Known Allergies Allergy Verified 01/11/18 04:20 - Medications Medications: Current Medications Aspirin (Aspirin Chewable) 81 mg PO DAILY [facility] Last Admin: 01/11/18 09:56 Dose: 81 mg Carvedilol (Coreg) 3.125 mg PO BID [facility] Last Admin: 01/11/18 09:56 Dose: 3.125 mg Clopidogrel Bisulfate (Plavix) 75 mg PO DAILY [facility] Last Admin: 01/11/18 09:56 Dose: 75 mg Epoetin Denis (Procrit) 20,000 unit SC ONCE ONE Stop: 01/11/18 14:25 Furosemide (Lasix) 20 mg IVP Q12 [facility] Last Admin: 01/11/18 09:56 Dose: 20 mg Heparin Sodium/Sodium Chloride (Heparin 45102 Units/250ml 1/2 Normal Saline) 25 ,000 units in 250 mls @ 6.804 mls/hr IV .Q24H PRN; Protocol; 12 UNITS/KG/HR PRN Reason: ADJUST RATE PER PROTOCOL Last Admin: 01/11/18 09:51 Dose: 12 units/kg/hr, 6.804 mls/hr Pantoprazole Sodium (Protonix Ec Tab) 40 mg PO DAILY [facility] Last Admin: 01/11/18 10:49 Dose: 40 mg Rosuvastatin Calcium (Crestor) 20 mg PO HS [facility] Results - Vital Signs Recent Vital Signs: Last Vital Signs Temp 98.2 F 01/11/18 12:00 Pulse 78 01/11/18 13:50 Resp 20 01/11/18 13:50 BP 101/68 01/11/18 13:13 Pulse Ox 100 01/11/18 13:50 - Labs Result Diagrams: 01/11/18 04:56 01/11/18 13:18 Labs: Laboratory Results - last 24 hr 01/11/18 01/11/18 01/11/18 04:56 04:56 07:14 WBC 6.3 RBC 3.13 L Hgb 8.1 L D Hct 25.3 L MCV 80.9 L D MCH 25.8 L MCHC 31.9 L RDW 15.9 H Plt Count 169 MPV 8.8 Neut % (Auto) 61.4 Lymph % (Auto) 24.0 [place] % (Auto) 5.6 Eos % (Auto) 8.8 H Baso % (Auto) 0.2 Neut # (Auto) 3.9 Lymph # (Auto) 1.5 [place] # (Auto) 0.4 Eos # (Auto) 0.6 Baso # (Auto) 0.0 PT INR APTT Sodium 142 Potassium 6.1 H Chloride 112 H D Carbon Dioxide 17 L Anion Gap 19 BUN 44 H Creatinine 2.8 H Est GFR ( Amer) 19 Est GFR (Non-Af Amer) 16 Random Glucose 124 H Hemoglobin A1c Calcium 9.0 Total Bilirubin 0.4 AST 56 H D ALT 63 H D Alkaline Phosphatase 106 Troponin I 5.0500 H* NT-Pro-B Natriuret Pep 84678 H Total Protein 7.8 Albumin 4.0 Globulin 3.8 Albumin/Globulin Ratio 1.0 Triglycerides 77 Cholesterol 126 LDL Cholesterol Direct 42 HDL Cholesterol 42 Blood Type B POSITIVE Antibody Screen Negative 01/11/18 01/11/18 01/11/18 07:34 13:18 13:18 WBC RBC Hgb Hct MCV MCH MCHC RDW Plt Count MPV Neut % (Auto) Lymph % (Auto) [place] % (Auto) Eos % (Auto) Baso % (Auto) Neut # (Auto) Lymph # (Auto) [place] # (Auto) Eos # (Auto) Baso # (Auto) PT 11.2 INR 1.0 APTT 30 Sodium 143 Potassium 5.4 H Chloride 107 Carbon Dioxide 23 Anion Gap 18 BUN 45 H Creatinine 2.9 H Est GFR ( Amer) 19 Est GFR (Non-Af Amer) 15 Random Glucose 132 H Hemoglobin A1c 6.2 Calcium 9.1 Total Bilirubin AST ALT Alkaline Phosphatase Troponin I 9.7600 H* NT-Pro-B Natriuret Pep Total Protein Albumin Globulin Albumin/Globulin Ratio Triglycerides Cholesterol LDL Cholesterol Direct HDL Cholesterol Blood Type Antibody Screen
[2018-01-11] MEDS ORDERED: Epoetin Alfa Dialysis 20000 UNIT/ML Inj SC ONE (14:45)
[2018-01-11 15:21] LABS: IRON 68 ug/dL (37-170)
[2018-01-11 15:30] LABS: % IRON SATURATION 21 (20-55); TOTAL IRON BINDING CAPACITY 320 ug/dL (250-450)
[2018-01-11 23:16] LABS: HEMOGLOBIN 9.8 g/dL (11.0-16.0); MEAN CELL VOLUME 81.6 fL (81.0-99.0); MEAN CORPUSCULAR HGB CONC 33.1 g/dL (33.0-37.0); MEAN PLATELET VOLUME 9.6 fL (7.2-11.7); RBC 3.64 Mil/uL (3.80-5.20); RED CELL DISTRIBUTION WIDTH 16.2 % (11.5-14.5); WHITE BLOOD COUNT 5.3 K/uL (4.8-10.8)
--- NOTE | 2018-01-12 03:56 | CON ---
DATE: 01/11/2018 RENAL CONSULTATION REQUESTED BY: Chasity Quezada MD REASON FOR CONSULTATION: Hyperkalemia, acute OH, CHF and chronic kidney disease stage IV to stage V, for further evaluation. HISTORY OF PRESENT ILLNESS: Mrs. Priest is about 82 years old elderly female with a past medical history significant for longstanding hypertension, hyperlipidemia, coronary artery disease, CVA, chronic kidney disease, metabolic acidosis who was discharged from the [facility] about 2 months ago after admitting and treating for hyperkalemia, acute renal failure on chronic kidney disease and metabolic acidosis. Now, patient was presented to the emergency room and admitted to the ICU with the chief complaints of sudden onset of chest pain and also shortness of breath. The pain she felt this morning at 03:00 a.m. is similar to the pain she had in the last year with the acute OH. EMS was called and patient was given four baby aspirins and Lasix 20 mg IV push and also sublingual nitro x2 in route to the emergency room. The patient is also receiving Lasix with good urine output about 1.8 to 2 liters during my examination. The patient is resting comfortably. Denies any chest pain, palpitation. At this time, denies any nausea, vomiting, diarrhea. Denies any abdominal pain. No fever. No cough. No swelling of the legs. The patient was complaining of chest pain and shortness of breath prior to the admission to the ER. PAST MEDICAL HISTORY: Significant for longstanding hypertension, chronic kidney disease, bilateral small contracted kidneys, CKD IV, CAD status post stent, and CVA. PAST SURGICAL HISTORY: Status post cardiac cath and angioplasty. ALLERGIES: NO KNOWN DRUG ALLERGIES. SOCIAL HISTORY: Denies any smoking. No alcohol or drugs. FAMILY HISTORY: Not significant. PERSONAL HISTORY: She has a very supportive family and daughter. REVIEW OF SYSTEMS: Significant for shortness of breath and chest pain and elevated troponins and also significant for anemia and acidosis. All other review of systems are reviewed and are negative. PHYSICAL EXAMINATION: VITAL SIGNS: As follows; blood pressure is 101/68, pulse 67, respirations 19, saturation 100%, and temperature 97.6. Height is 5 feet, weight is 125 pounds. BMI 24.4. GENERAL: Mrs. Priest is 82 years elderly female, thin built, not in distress on nasal cannula. HEENT: Pupils normal, react to light and accommodation. Conjunctivae pale. Sclerae anicteric. Tongue is moist and trachea is midline. No thyroid enlargement. No generalized lymphadenopathy. LUNGS: Symmetric on both sides. Bilateral breath sounds present. Bilateral basal crackles present, left more than the right. CVS: [place] at the fifth intercostal space, midclavicular area. S1 and S2 audible. No murmur or gallop. ABDOMEN: Slightly distended, soft, tympanic. No guarding, no rigidity, no hepatosplenomegaly seen. No abdominal bruit. The patient has a subumbilical midline scar present from the previous surgeries. CUTTER FINISHER: The patient is alert, awake and oriented x3. Nonfocal neuro examination. Cranial nerves II through XII grossly intact. Sensory and motor system is within normal limits. EXTREMITIES: No cyanosis, no clubbing, no edema. SKIN: Turgor is normal. LABORATORY DATA: Include as follows, as of 01/11/2018; WBC 6.3, hemoglobin 8.1, hematocrit is 25.3, platelets 169. PT 11.2, INR 1, PTT 30. Sodium 142, potassium 6.1, chloride 112, CO2 of 17, BUN 44, creatinine 2.8, glucose is 124, GFR is 16, calcium is 9, total bili 0.4, AST 56, ALT 63, alkaline phosphatase 106, troponin 5.05 and proBNP 24,100, total protein 7.8, albumin is 4, triglycerides 77, cholesterol 126, LDL 42, HDL 42. Repeat troponin levels 9.76 and this afternoon sodium is 143, potassium 5.4, chloride 107, CO2 of 23, BUN 45, creatinine 2.9, glucose 132, hemoglobin A1c 6.2, calcium 9.1. Iron 68, TIBC 320, 21% and ferritin is 116. IMAGING STUDIES: Chest x-ray as of 01/11/2018 at 04:36 a.m., mild pulmonary venous congestive changes felt to would be present with more confluent opacities in both lower lung zones and possible small bilateral effusions, marked cardiomegaly. ASSESSMENT: In summary, Mrs. Priest is an 82 years old elderly female with a history of longstanding hypertension, hyperlipidemia, coronary artery disease, chronic kidney disease with bilateral small contracted kidneys with hyperkalemia, metabolic acidosis with sudden onset of shortness of breath and chest discomfort, felt similar to one with the myocardial infarction in 2017 as per the patient and with elevated troponin levels. 1. Chronic kidney disease, stage IV. 2. Hypertension. 3. Anemia secondary to chronic kidney disease, rule out iron-deficiency anemia. 4. Congestive heart failure. 5. [id number] myocardial infarction with elevated troponin levels. PLAN: Check phosphorus, PTH intact level and also check iron TIBC, ferritin level. We will add Epogen 20,000 units subcu x1 dose and also transfuse 1 unit of packed RBC today and continue to monitor cardiac enzymes every 8 hours and follow up with rock crushing machine operator, may need cardiac cath. We will follow with Cardiology. Thank you for allowing me to participate in your patient's care and also continue gentle diuresis and also Kayexalate p.r.n. for potassium more than 5.5. Case discussed with the water chemist Dr. Carter Cross in rounds. Oneil Ron MD
[2018-01-12 06:26] LABS: BASO % 0.3 % (0.0-2.0); EOS # 0.6 K/uL (0.0-0.7); EOS % 12.1 % (0.0-4.0); HEMOGLOBIN 9.9 g/dL (11.0-16.0); LYMPH # 1.7 K/uL (1.0-4.3); LYMPH % 32.9 % (20.0-40.0); MEAN CELL VOLUME 80.6 fL (81.0-99.0); MEAN CORPUSCULAR HEMOGLOBIN 26.8 pg (27.0-31.0); MEAN CORPUSCULAR HGB CONC 33.3 g/dL (33.0-37.0); MEAN PLATELET VOLUME 9.5 fL (7.2-11.7); MONO # 0.4 K/uL (0.0-0.8); MONO % 7.6 % (0.0-10.0); NEUT # 2.5 K/uL (1.8-7.0); NEUT % 47.1 % (50.0-75.0); RBC 3.7 Mil/uL (3.80-5.20); WHITE BLOOD COUNT 5.3 K/uL (4.8-10.8)
[2018-01-12 06:35] LABS: ALB/GLOB RATIO 1.1 (1.0-2.1); ALBUMIN 3.8 g/dL (3.5-5.0); CALCIUM 8.7 mg/dl (8.6-10.4)
[2018-01-12] MEDS ORDERED: Sod Polystyrene Sulf 15 gm/60 ml Susp PO ONE (07:48)
[2018-01-12] MEDS ORDERED: Magnesium Sulfate 1 gm in D5W 1 GM/100 ML BAG IVPB ONE (08:00)
--- NOTE | 2018-01-12 11:38 | RAD ---
HISTORY: pulm edema COMPARISON: Portable chest 01/11/2018. FINDINGS: LUNGS: Diminished pulmonary venous congestion with stable cardiomegaly evident. Pulmonary vascular pattern appears markedly diminished. No definite pleural effusion or pneumothorax bilaterally. No airspace disease bilaterally. Linear atelectasis or crowding of the bronchovascular markings seen in the retrocardiac left lower lobe. PLEURA: As above. CARDIOVASCULAR: As above. OSSEOUS STRUCTURES: No significant abnormalities. VISUALIZED UPPER ABDOMEN: Normal. OTHER FINDINGS: None. IMPRESSION: Markedly improved CHF pattern with limited residual.
[2018-01-12] MEDS: Pantoprazole 40 mg EC Tab PO SCH (13:23)
--- NOTE | 2018-01-12 14:27 | CP.CCUPN ---
<Deborah Ryan - Last Filed: 01/12/18 17:47> CCU Subjective - Physician Review Subjective (Free Text): 01/12/18 14:24 Pt seen and examined at bedside. No acute events overnight. Patient was sitting comfortably in the chair in the am. Patient denied having any CP, SOB, abd pain, N/v/D/C, F/C. Pt was complaining of nonproductive coughing. Currently on NC 2.5 L. Critical Care Time Spent (in minutes): 45 CCU Objective - Vital Signs / Intake & Output Vital Signs (Last 4 hours): Vital Signs Pulse Resp BP Pulse Ox 01/12/18 13:00 68 15 114/69 94 L 01/12/18 12:31 66 19 101/55 L 99 01/12/18 12:02 69 15 119/61 94 L 01/12/18 12:00 74 20 100 01/12/18 11:31 54 L 16 154/47 H 100 01/12/18 11:01 62 18 132/68 97 01/12/18 11:00 61 18 97 01/12/18 10:33 89 28 H 143/80 98 Intake and Output (Last 8hrs): Intake & Output 01/11/18 01/12/18 01/12/18 22:59 06:59 14:59 Intake Total 292.5 1640.8 690.2 Output Total 525 495 766 Balance -232.5 1145.8 -75.8 Weight 97 lb 12.8 oz Intake: IV 0 Intake, IV Amount 42.5 40.8 30.2 Left Antecubital 42.5 40.8 30.2 Oral 150 1600 660 Blood Product 0 Red Blood Cells Cpd As1 0 Lr Unit [id number] Other 100 Red Blood Cells Cpd As1 100 Lr Unit [id number] Output: Urine 525 495 365 Urethral ([place]) 525 495 365 Stool 1 Urine/Stool Mix 400 - Physical Exam Head: Positive for: Atraumatic, Normocephalic Mouth: Positive for: Moist Mucous Membranes Respiratory/Chest: Positive for: Clear to Auscultation. Negative for: Respiratory Distress, Accessory Muscle Use, Wheezes, Rales, Rhonchi Cardiovascular: Positive for: Regular Rate and Rhythm, Normal S1, S2. Negative for: Murmurs, Rub, Gallop Abdomen: Positive for: Normal Bowel Sounds. Negative for: Tenderness, Distention, Peritoneal Signs, Rebound, Guarding Lower Extremity: Negative for: Edema, CALF TENDERNESS, Tenderness Neurological: Positive for: GCS=15, Speech Normal Skin: Positive for: Warm, Dry, Normal Color. Negative for: Rashes Psychiatric: Positive for: Alert, Oriented x 3, Normal Insight, Normal Concentration - Medications Active Medications: Active Medications Generic Name Dose Route Start Last Admin Trade Name Freq PRN Reason Stop Dose Admin Aspirin 81 mg 01/11/18 10:01/12/18 09:44 Aspirin Chewable PO 81 mg DAILY MAYELA Administration Carvedilol 3.125 mg 01/11/18 10:00 01/12/18 09:44 Coreg PO 3.125 mg BID MAYELA Administration Clopidogrel Bisulfate 75 mg 01/11/18 10:00 01/12/18 09:44 Plavix PO 75 mg DAILY MAYELA Administration Furosemide 20 mg 01/11/18 10:00 01/12/18 09:44 Lasix IVP 20 mg Q12 MAYELA Administration Heparin Sodium/Sodium Chloride 25,000 units in 250 mls @ 6.804 mls/hr 10:00 01/12/18 09:11 Heparin 57612 Units/250ml 1/2 Normal Saline IV 7 units/kg/hr .Q24H PRN 3.969 mls/hr ADJUST RATE PER PROTOCOL Titration Protocol 12 UNITS/KG/HR Pantoprazole Sodium 40 mg 01/11/18 10:00 01/12/18 13:23 Protonix Ec Tab PO 40 mg DAILY MAYELA Administration Rosuvastatin Calcium 20 mg 01/11/18 22:00 01/11/18 21:17 Crestor PO 20 mg HS MAYELA Administration - Patient Studies Lab Studies: Microbiology Studies 01/11/18 12:02 MRSA Culture (Admit) - Final Nose MRSA NOT DETECTED Lab Studies 01/12/18 01/12/18 01/12/18 Range/Units 07:46 06:14 06:13 WBC 5.3 (4.8-10.8) K/uL RBC 3.70 L (3.80-5.20) Mil/uL Hgb 9.9 L (11.0-16.0) g/dL Hct 29.8 L (34.0-47.0) % MCV 80.6 L (81.0-99.0) fL MCH 26.8 L (27.0-31.0) pg MCHC 33.3 (33.0-37.0) g/dL RDW 16.0 H (11.5-14.5) % Plt Count 153 (130-400) K/uL MPV 9.5 (7.2-11.7) fL Neut % (Auto) 47.1 L (50.0-75.0) % Lymph % (Auto) 32.9 (20.0-40.0) % [place] % (Auto) 7.6 (0.0-10.0) % Eos % (Auto) 12.1 H (0.0-4.0) % Baso % (Auto) 0.3 (0.0-2.0) % Neut # (Auto) 2.5 (1.8-7.0) K/uL Lymph # (Auto) 1.7 (1.0-4.3) K/uL [place] # (Auto) 0.4 (0.0-0.8) K/uL Eos # (Auto) 0.6 (0.0-0.7) K/uL Baso # (Auto) 0.0 (0.0-0.2) K/uL APTT 98 H D (21-34) SECONDS Sodium 140 (132-148) mmol/L Potassium 6.1 H (3.6-5.2) mmol/L Chloride 105 (98-107) mmol/L Carbon Dioxide 24 (22-30) mmol/L Anion Gap 17 (10-20) BUN 48 H (7-17) mg/dL Creatinine 3.0 H (0.7-1.2) mg/dL Est GFR ( Amer) 18 Est GFR (Non-Af Amer) 15 Random Glucose 100 (65-105) mg/dL Calcium 8.7 (8.6-10.4) mg/dl Phosphorus 6.2 H (2.5-4.5) mg/dL Magnesium 1.4 L (1.6-2.3) mg/dL Iron (37-170) ug/dL TIBC (250-450) ug/dL % Saturation (20-55) Ferritin ng/mL Total Bilirubin 0.4 (0.2-1.3) mg/dL AST 55 H (14-36) U/L ALT 58 H (9-52) U/L Alkaline Phosphatase 74 (38-126) U/L Troponin I (0.00-0.120) ng/mL Total Protein 7.4 (6.3-8.3) g/dL Albumin 3.8 (3.5-5.0) g/dL Globulin 3.6 (2.2-3.9) gm/dL Albumin/Globulin Ratio 1.1 (1.0-2.1) Blood Type Antibody Screen 01/12/18 01/12/18 01/11/18 Range/Units 01:59 01:47 23:12 WBC 5.3 (4.8-10.8) K/uL RBC 3.64 L (3.80-5.20) Mil/uL Hgb 9.8 L (11.0-16.0) g/dL Hct 29.7 L (34.0-47.0) % MCV 81.6 (81.0-99.0) fL MCH 27.0 (27.0-31.0) pg MCHC 33.1 (33.0-37.0) g/dL RDW 16.2 H (11.5-14.5) % Plt Count 150 (130-400) K/uL MPV 9.6 (7.2-11.7) fL Neut % (Auto) (50.0-75.0) % Lymph % (Auto) (20.0-40.0) % [place] % (Auto) (0.0-10.0) % Eos % (Auto) (0.0-4.0) % Baso % (Auto) (0.0-2.0) % Neut # (Auto) (1.8-7.0) K/uL Lymph # (Auto) (1.0-4.3) K/uL [place] # (Auto) (0.0-0.8) K/uL Eos # (Auto) (0.0-0.7) K/uL Baso # (Auto) (0.0-0.2) K/uL APTT 81 H D (21-34) SECONDS Sodium (132-148) mmol/L Potassium (3.6-5.2) mmol/L Chloride (98-107) mmol/L Carbon Dioxide (22-30) mmol/L Anion Gap (10-20) BUN (7-17) mg/dL Creatinine (0.7-1.2) mg/dL Est GFR ( Amer) Est GFR (Non-Af Amer) Random Glucose (65-105) mg/dL Calcium (8.6-10.4) mg/dl Phosphorus (2.5-4.5) mg/dL Magnesium (1.6-2.3) mg/dL Iron (37-170) ug/dL TIBC (250-450) ug/dL % Saturation (20-55) Ferritin ng/mL Total Bilirubin (0.2-1.3) mg/dL AST (14-36) U/L ALT (9-52) U/L Alkaline Phosphatase (38-126) U/L Troponin I 4.7100 H* (0.00-0.120) ng/mL Total Protein (6.3-8.3) g/dL Albumin (3.5-5.0) g/dL Globulin (2.2-3.9) gm/dL Albumin/Globulin Ratio (1.0-2.1) Blood Type Antibody Screen 01/11/18 01/11/18 01/11/18 Range/Units 20:38 18:08 15:04 WBC (4.8-10.8) K/uL RBC (3.80-5.20) Mil/uL Hgb (11.0-16.0) g/dL Hct (34.0-47.0) % MCV (81.0-99.0) fL MCH (27.0-31.0) pg MCHC (33.0-37.0) g/dL RDW (11.5-14.5) % Plt Count (130-400) K/uL MPV (7.2-11.7) fL Neut % (Auto) (50.0-75.0) % Lymph % (Auto) (20.0-40.0) % [place] % (Auto) (0.0-10.0) % Eos % (Auto) (0.0-4.0) % Baso % (Auto) (0.0-2.0) % Neut # (Auto) (1.8-7.0) K/uL Lymph # (Auto) (1.0-4.3) K/uL [place] # (Auto) (0.0-0.8) K/uL Eos # (Auto) (0.0-0.7) K/uL Baso # (Auto) (0.0-0.2) K/uL APTT 133 H* D (21-34) SECONDS Sodium (132-148) mmol/L Potassium (3.6-5.2) mmol/L Chloride (98-107) mmol/L Carbon Dioxide (22-30) mmol/L Anion Gap (10-20) BUN (7-17) mg/dL Creatinine (0.7-1.2) mg/dL Est GFR ( Amer) Est GFR (Non-Af Amer) Random Glucose (65-105) mg/dL Calcium (8.6-10.4) mg/dl Phosphorus (2.5-4.5) mg/dL Magnesium (1.6-2.3) mg/dL Iron (37-170) ug/dL TIBC (250-450) ug/dL % Saturation (20-55) Ferritin 116.0 ng/mL Total Bilirubin (0.2-1.3) mg/dL AST (14-36) U/L ALT (9-52) U/L Alkaline Phosphatase (38-126) U/L Troponin I 6.8200 H* (0.00-0.120) ng/mL Total Protein (6.3-8.3) g/dL Albumin (3.5-5.0) g/dL Globulin (2.2-3.9) gm/dL Albumin/Globulin Ratio (1.0-2.1) Blood Type Antibody Screen 01/11/18 01/11/18 Range/Units 15:04 07:14 WBC (4.8-10.8) K/uL RBC (3.80-5.20) Mil/uL Hgb (11.0-16.0) g/dL Hct (34.0-47.0) % MCV (81.0-99.0) fL MCH (27.0-31.0) pg MCHC (33.0-37.0) g/dL RDW (11.5-14.5) % Plt Count (130-400) K/uL MPV (7.2-11.7) fL Neut % (Auto) (50.0-75.0) % Lymph % (Auto) (20.0-40.0) % [place] % (Auto) (0.0-10.0) % Eos % (Auto) (0.0-4.0) % Baso % (Auto) (0.0-2.0) % Neut # (Auto) (1.8-7.0) K/uL Lymph # (Auto) (1.0-4.3) K/uL [place] # (Auto) (0.0-0.8) K/uL Eos # (Auto) (0.0-0.7) K/uL Baso # (Auto) (0.0-0.2) K/uL APTT (21-34) SECONDS Sodium (132-148) mmol/L Potassium (3.6-5.2) mmol/L Chloride (98-107) mmol/L Carbon Dioxide (22-30) mmol/L Anion Gap (10-20) BUN (7-17) mg/dL Creatinine (0.7-1.2) mg/dL Est GFR ( Amer) Est GFR (Non-Af Amer) Random Glucose (65-105) mg/dL Calcium (8.6-10.4) mg/dl Phosphorus (2.5-4.5) mg/dL Magnesium (1.6-2.3) mg/dL Iron 68 (37-170) ug/dL TIBC 320 (250-450) ug/dL % Saturation 21 (20-55) Ferritin ng/mL Total Bilirubin (0.2-1.3) mg/dL AST (14-36) U/L ALT (9-52) U/L Alkaline Phosphatase (38-126) U/L Troponin I (0.00-0.120) ng/mL Total Protein (6.3-8.3) g/dL Albumin (3.5-5.0) g/dL Globulin (2.2-3.9) gm/dL Albumin/Globulin Ratio (1.0-2.1) Blood Type B POSITIVE Antibody Screen Negative Laboratory Results - last 24 hr 01/11/18 01/11/18 01/11/18 07:14 15:04 15:04 WBC RBC Hgb Hct MCV MCH MCHC RDW Plt Count MPV Neut % (Auto) Lymph % (Auto) [place] % (Auto) Eos % (Auto) Baso % (Auto) Neut # (Auto) Lymph # (Auto) [place] # (Auto) Eos # (Auto) Baso # (Auto) APTT Sodium Potassium Chloride Carbon Dioxide Anion Gap BUN Creatinine Est GFR ( Amer) Est GFR (Non-Af Amer) Random Glucose Calcium Phosphorus Magnesium Iron 68 TIBC 320 % Saturation 21 Ferritin 116.0 Total Bilirubin AST ALT Alkaline Phosphatase Troponin I Total Protein Albumin Globulin Albumin/Globulin Ratio Blood Type B POSITIVE Antibody Screen Negative 01/11/18 01/11/18 01/11/18 18:08 20:38 23:12 WBC 5.3 RBC 3.64 L Hgb 9.8 L Hct 29.7 L MCV 81.6 MCH 27.0 MCHC 33.1 RDW 16.2 H Plt Count 150 MPV 9.6 Neut % (Auto) Lymph % (Auto) [place] % (Auto) Eos % (Auto) Baso % (Auto) Neut # (Auto) Lymph # (Auto) [place] # (Auto) Eos # (Auto) Baso # (Auto) APTT 133 H* D Sodium Potassium Chloride Carbon Dioxide Anion Gap BUN Creatinine Est GFR ( Amer) Est GFR (Non-Af Amer) Random Glucose Calcium Phosphorus Magnesium Iron TIBC % Saturation Ferritin Total Bilirubin AST ALT Alkaline Phosphatase Troponin I 6.8200 H* Total Protein Albumin Globulin Albumin/Globulin Ratio Blood Type Antibody Screen 01/12/18 01/12/18 01/12/18 01:47 01:59 06:13 WBC RBC Hgb Hct MCV MCH MCHC RDW Plt Count MPV Neut % (Auto) Lymph % (Auto) [place] % (Auto) Eos % (Auto) Baso % (Auto) Neut # (Auto) Lymph # (Auto) [place] # (Auto) Eos # (Auto) Baso # (Auto) APTT 81 H D Sodium 140 Potassium 6.1 H Chloride 105 Carbon Dioxide 24 Anion Gap 17 BUN 48 H Creatinine 3.0 H Est GFR ( Amer) 18 Est GFR (Non-Af Amer) 15 Random Glucose 100 Calcium 8.7 Phosphorus 6.2 H Magnesium 1.4 L Iron TIBC % Saturation Ferritin Total Bilirubin 0.4 AST 55 H ALT 58 H Alkaline Phosphatase 74 Troponin I 4.7100 H* Total Protein 7.4 Albumin 3.8 Globulin 3.6 Albumin/Globulin Ratio 1.1 Blood Type Antibody Screen 01/12/18 01/12/18 06:14 07:46 WBC 5.3 RBC 3.70 L Hgb 9.9 L Hct 29.8 L MCV 80.6 L MCH 26.8 L MCHC 33.3 RDW 16.0 H Plt Count 153 MPV 9.5 Neut % (Auto) 47.1 L Lymph % (Auto) 32.9 [place] % (Auto) 7.6 Eos % (Auto) 12.1 H Baso % (Auto) 0.3 Neut # (Auto) 2.5 Lymph # (Auto) 1.7 [place] # (Auto) 0.4 Eos # (Auto) 0.6 Baso # (Auto) 0.0 APTT 98 H D Sodium Potassium Chloride Carbon Dioxide Anion Gap BUN Creatinine Est GFR ( Amer) Est GFR (Non-Af Amer) Random Glucose Calcium Phosphorus Magnesium Iron TIBC % Saturation Ferritin Total Bilirubin AST ALT Alkaline Phosphatase Troponin I Total Protein Albumin Globulin Albumin/Globulin Ratio Blood Type Antibody Screen EKG/Cardiology Studies: Cardiology / EKG Studies 01/12/18 07:40 ELECTROCARDIOGRAM Stat Comment: Mode Of Transportation: Reason For Exam: hyperkalemia Review of Systems - Constitutional Constitutional: absent: Fever, Chills - EENT Eyes: absent: Blurred Vision, Change in Vision Nose/Mouth/Throat: absent: Nasal Congestion, Nasal Discharge, Sore Throat - Cardiovascular Cardiovascular: absent: Chest Pain, Dyspnea, Edema - Respiratory Respiratory: Cough. absent: Dyspnea, Wheezing, Chest Congestion - Gastrointestinal Gastrointestinal: absent: Abdominal Pain, Bloating, Nausea, Vomiting - Genitourinary Genitourinary: absent: Dysuria - Musculoskeletal Musculoskeletal: absent: Back Pain, Joint Swelling - Integumentary Integumentary: absent: Lesions, Rash, Skin Ulcer - Neurological Neurological: absent: Syncope, Tingling, Weakness - Psychiatric Psychiatric: absent: Anxiety, Depression Critical Care Progress Note - Extremities/Vascular Does the Patient have a Central Venous Catheter?: No - Prophylaxis GI Prophylaxis GI: PPI - Prophylaxis DVT Prophylaxis DVT: Heparin SQ - Nutrition Nutrition: Nutrition Category Date Time Status Heart Healthy Diet [DIET] Diets 01/11/18 Breakfast Active Assessment/Plan - Assessment and Plan (Free Text) Assessment: 82 year old female with past medical history of CAd s/p bypass, HTN, CKD, CVA is admitted to hospital for NSTEMI, pulmonary edema. Neuro: - A&Ox 3. Pleasantly conversing without difficulty. Stable Cardio: Hx of CAD s/p bypass in 05/2017 Echo done on 10/2017 showed LV EF of 20% with severe LV dysfunction. Ant and apical hypokenesis. Small pericardial effusion. Will repeat Echo A. NSTEMI - Noted to have elevated trops and EKG changes noted on V3-V5. - Pt started on heparin drip - Continue apsirin, plavix and coreg - Cardio, Dr. Bravo is consulted. Pending recs A. Heart failure with decrease EF - Pt presented with pulmonary edema likely from HF - Currently on lasixs 20 mg IVP q12. Continue coreg 3.125 mg po bid - Pt unable to receive ACEI/ARB therapy due to CKD. She is unable to receive spironolactone due to kyperkalemia of 6.1 this am Pulmonary: A. Pulmonary edema - CXR on admission showed mild pulmn venous congestive changes and possible small B/L effusions - Continue lasixs 20 mg IVP q12 - NC prn GI: - heart healthy diet A. Transaminitis - Last hepatitis panel in 10/2017 was negative - Will continue to monitor : - Stable Renal: A. CKD - BUN/Cr: 48/3.0 - Will continue to monitor kidney function -Nephor, Dr. Miller is consulted Heme: - Currently on heparin drip. Will continue to monitor PTT A. Anemia - transfused 1 unit of PRBC yesterday. Will continue to monitor Hgb Prophylaxis - Heparin - SCDs - protonix D.W. Dr. Hernandez - Date & Time Date: 01/12/18 Time: 14:28 <Sage Hernandez - Last Filed: 01/19/18 09:06> Critical Care Progress Note - Nutrition Nutrition: Nutrition Category Date Time Status Renal Diet [DIET] Diets 01/15/18 Lunch Active Attending/Attestation - Attestation I have personally seen and examined this patient.: Yes I have fully participated in the care of the patient.: Yes I have reviewed all pertinent clinical information: Yes Notes (Text): pt is seen examined and reviewed with resident and agree with note
[2018-01-12 15:20] LABS: BASO % 0.6 % (0.0-2.0); EOS # 0.8 K/uL (0.0-0.7); EOS % 13.4 % (0.0-4.0); HEMOGLOBIN 10.4 g/dL (11.0-16.0); LYMPH # 1.6 K/uL (1.0-4.3); LYMPH % 27.9 % (20.0-40.0); MEAN CORPUSCULAR HEMOGLOBIN 27.4 pg (27.0-31.0); MEAN CORPUSCULAR HGB CONC 33.4 g/dL (33.0-37.0); MEAN PLATELET VOLUME 9.5 fL (7.2-11.7); MONO # 0.6 K/uL (0.0-0.8); MONO % 9.9 % (0.0-10.0); NEUT # 2.7 K/uL (1.8-7.0); NEUT % 48.2 % (50.0-75.0); RBC 3.78 Mil/uL (3.80-5.20); RED CELL DISTRIBUTION WIDTH 15.9 % (11.5-14.5); WHITE BLOOD COUNT 5.7 K/uL (4.8-10.8)
[2018-01-12 15:27] LABS: PROTHROMBIN TIME 11.4 SECONDS (9.7-12.2)
[2018-01-12 15:44] LABS: ALB/GLOB RATIO 1.1 (1.0-2.1); ALBUMIN 4.3 g/dL (3.5-5.0); CALCIUM 8.5 mg/dl (8.6-10.4)
--- NOTE | 2018-01-12 16:27 | CP.PCM.CON ---
History of Present Illness - History of Present Illness History of Present Illness: Patient with history of CAD and S/P L M Stenting now with NSTEMI. As per pateint she had chest pain and family brought her to hospital where she was treated accordingly. Now chest pain free. d Past Patient History - Past Medical History & Family History Past Medical History?: Yes - Past Social History Smoking Status: Never Smoked - CARDIAC Hx Hypercholesterolemia: Yes Hx Hypertension: Yes - PULMONARY Hx Respiratory Disorders: No - NEUROLOGICAL HX Cerebrovascular Accident: Yes - HEENT Hx HEENT Problems: No - RENAL Hx Chronic Kidney Disease: Yes - ENDOCRINE/METABOLIC Hx Diabetes Mellitus Type 2: Yes - HEMATOLOGICAL/ONCOLOGICAL Hx Blood Disorders: No - INTEGUMENTARY Hx Dermatological Problems: No - MUSCULOSKELETAL/RHEUMATOLOGICAL Hx Musculoskeletal Disorders: No Hx Falls: No - GASTROINTESTINAL Hx Gastrointestinal Disorders: No - GENITOURINARY/GYNECOLOGICAL Hx Genitourinary Disorders: No - PSYCHIATRIC Hx Psychophysiologic Disorder: No Hx Substance Use: No - SURGICAL HISTORY Hx Surgeries: Yes Hx Hysterectomy: Yes Other/Comment: Carotid artery sx - ANESTHESIA Hx Anesthesia: Yes Hx Anesthesia Reactions: No Hx Malignant Hyperthermia: No Meds Allergies/Adverse Reactions: Allergies Allergy/AdvReac Type Severity Reaction Status Date / Time No Known Allergies Allergy Verified 01/11/18 04:20 - Medications Medications: Current Medications Aspirin (Aspirin Chewable) 81 mg PO DAILY [facility] Last Admin: 01/12/18 09:44 Dose: 81 mg Carvedilol (Coreg) 3.125 mg PO BID [facility] Last Admin: 01/12/18 09:44 Dose: 3.125 mg Clopidogrel Bisulfate (Plavix) 75 mg PO DAILY [facility] Last Admin: 01/12/18 09:44 Dose: 75 mg Furosemide (Lasix) 20 mg IVP Q12 [facility] Last Admin: 01/12/18 09:44 Dose: 20 mg Heparin Sodium/Sodium Chloride (Heparin 92957 Units/250ml 1/2 Normal Saline) 25 ,000 units in 250 mls @ 6.804 mls/hr IV .Q24H PRN; Protocol; 12 UNITS/KG/HR PRN Reason: ADJUST RATE PER PROTOCOL Last Titration: 01/12/18 09:11 Dose: 7 units/kg/hr, 3.969 mls/hr Pantoprazole Sodium (Protonix Ec Tab) 40 mg PO DAILY [facility] Last Admin: 07/02/18 13:23 Dose: 40 mg Rosuvastatin Calcium (Crestor) 20 mg PO HS [facility] Last Admin: 01/11/18 21:17 Dose: 20 mg Physical Exam - Head Exam Head Exam: NORMOCEPHALIC - Neck Exam Neck exam: Positive for: Normal Inspection - Respiratory Exam Respiratory Exam: NORMAL BREATHING PATTERN - Cardiovascular Exam Cardiovascular Exam: REGULAR RHYTHM - GI/Abdominal Exam GI & Abdominal Exam: Normal Bowel Sounds - Extremities Exam Extremities exam: Positive for: normal inspection - Neurological Exam Neurological exam: Alert, Oriented x3 Results - Vital Signs Recent Vital Signs: Last Vital Signs Temp 97.8 F 01/11/18 19:55 Pulse 78 01/12/18 13:00 Resp 20 01/12/18 13:00 BP 114/69 01/12/18 13:00 Pulse Ox 95 01/12/18 13:00 - Labs Result Diagrams: 01/12/18 15:14 01/12/18 15:14 Labs: Laboratory Results - last 24 hr 01/11/18 01/11/18 01/11/18 07:14 18:08 20:38 WBC RBC Hgb Hct MCV MCH MCHC RDW Plt Count MPV Neut % (Auto) Lymph % (Auto) [place] % (Auto) Eos % (Auto) Baso % (Auto) Neut # (Auto) Lymph # (Auto) [place] # (Auto) Eos # (Auto) Baso # (Auto) PT INR APTT 133 H* D Sodium Potassium Chloride Carbon Dioxide Anion Gap BUN Creatinine Est GFR ( Amer) Est GFR (Non-Af Amer) Random Glucose Calcium Phosphorus Magnesium Total Bilirubin AST ALT Alkaline Phosphatase Troponin I 6.8200 H* Total Protein Albumin Globulin Albumin/Globulin Ratio Blood Type B POSITIVE Antibody Screen Negative 01/11/18 01/12/18 01/12/18 23:12 01:47 01:59 WBC 5.3 RBC 3.64 L Hgb 9.8 L Hct 29.7 L MCV 81.6 MCH 27.0 MCHC 33.1 RDW 16.2 H Plt Count 150 MPV 9.6 Neut % (Auto) Lymph % (Auto) [place] % (Auto) Eos % (Auto) Baso % (Auto) Neut # (Auto) Lymph # (Auto) [place] # (Auto) Eos # (Auto) Baso # (Auto) PT INR APTT 81 H D Sodium Potassium Chloride Carbon Dioxide Anion Gap BUN Creatinine Est GFR ( Amer) Est GFR (Non-Af Amer) Random Glucose Calcium Phosphorus Magnesium Total Bilirubin AST ALT Alkaline Phosphatase Troponin I 4.7100 H* Total Protein Albumin Globulin Albumin/Globulin Ratio Blood Type Antibody Screen 01/12/18 01/12/18 01/12/18 06:13 06:14 07:46 WBC 5.3 RBC 3.70 L Hgb 9.9 L Hct 29.8 L MCV 80.6 L MCH 26.8 L MCHC 33.3 RDW 16.0 H Plt Count 153 MPV 9.5 Neut % (Auto) 47.1 L Lymph % (Auto) 32.9 [place] % (Auto) 7.6 Eos % (Auto) 12.1 H Baso % (Auto) 0.3 Neut # (Auto) 2.5 Lymph # (Auto) 1.7 [place] # (Auto) 0.4 Eos # (Auto) 0.6 Baso # (Auto) 0.0 PT INR APTT 98 H D Sodium 140 Potassium 6.1 H Chloride 105 Carbon Dioxide 24 Anion Gap 17 BUN 48 H Creatinine 3.0 H Est GFR ( Amer) 18 Est GFR (Non-Af Amer) 15 Random Glucose 100 Calcium 8.7 Phosphorus 6.2 H Magnesium 1.4 L Total Bilirubin 0.4 AST 55 H ALT 58 H Alkaline Phosphatase 74 Troponin I Total Protein 7.4 Albumin 3.8 Globulin 3.6 Albumin/Globulin Ratio 1.1 Blood Type Antibody Screen 01/12/18 01/12/18 01/12/18 15:14 15:14 15:14 WBC 5.7 RBC 3.78 L Hgb 10.4 L Hct 31.0 L MCV 82.0 MCH 27.4 MCHC 33.4 RDW 15.9 H Plt Count 160 MPV 9.5 Neut % (Auto) 48.2 L Lymph % (Auto) 27.9 [place] % (Auto) 9.9 Eos % (Auto) 13.4 H Baso % (Auto) 0.6 Neut # (Auto) 2.7 Lymph # (Auto) 1.6 [place] # (Auto) 0.6 Eos # (Auto) 0.8 H Baso # (Auto) 0.0 PT 11.4 INR 1.0 APTT 59 H D Sodium 138 Potassium 5.4 H Chloride 103 Carbon Dioxide 25 Anion Gap 17 BUN 52 H Creatinine 2.9 H Est GFR ( Amer) 19 Est GFR (Non-Af Amer) 15 Random Glucose 145 H Calcium 8.5 L Phosphorus 6.0 H Magnesium 1.8 Total Bilirubin 0.7 AST 69 H D ALT 64 H Alkaline Phosphatase 75 Troponin I Total Protein 8.0 Albumin 4.3 Globulin 3.8 Albumin/Globulin Ratio 1.1 Blood Type Antibody Screen - EKG Data EKG comments: Reviewed. Assessment & Plan (1) Acute non-ST segment elevation myocardial infarction Assessment and Plan: Patient has history of CAD and PCI. Continue DAPT with heparin. Nephrology evaluation before cardiac cath. we will review old films and make further recommendation. Status: Acute (2) Chronic congestive heart failure Assessment and Plan: LV systolic dysfunction. Fluid restriction, 1.5 L/day. maintain electrolyte balance. Repeat Echocardiogram to assess LV systolic function. EP evaluation for possible AICD. Status: Acute (3) CAD (coronary artery disease) Assessment and Plan: Multi-vessel disease. continue lipid lowering agents with Beta blockers. Status: Acute (4) CRI (chronic renal insufficiency) Status: Acute
--- NOTE | 2018-01-12 17:36 | CP.PCM.PN ---
Subjective - Date & Time of Evaluation Date of Evaluation: 01/12/18 Time of Evaluation: 17:36 - Subjective Subjective: pt is seen and examined, follow up consult is dictated#[id number] Objective - Vital Signs/Intake and Output Vital Signs (last 24 hours): Temp Pulse Resp BP Pulse Ox 97.8 F 90 17 104/64 99 01/11/18 19:55 01/12/18 17:04 01/12/18 17:04 01/12/18 17:04 01/12/18 17:04 Intake and Output: 01/12/18 01/12/18 06:59 18:59 Intake Total 1906.1 806.2 Output Total 720 1166 Balance 1186.1 -359.8 - Medications Medications: Current Medications Aspirin (Aspirin Chewable) 81 mg PO DAILY [facility] Last Admin: 01/12/18 09:44 Dose: 81 mg Carvedilol (Coreg) 3.125 mg PO BID [facility] Last Admin: 01/12/18 17:13 Dose: 3.125 mg Clopidogrel Bisulfate (Plavix) 75 mg PO DAILY [facility] Last Admin: 01/12/18 09:44 Dose: 75 mg Furosemide (Lasix) 20 mg IVP Q12 [facility] Last Admin: 01/12/18 09:44 Dose: 20 mg Heparin Sodium/Sodium Chloride (Heparin 73867 Units/250ml 1/2 Normal Saline) 25 ,000 units in 250 mls @ 6.804 mls/hr IV .Q24H PRN; Protocol; 12 UNITS/KG/HR PRN Reason: ADJUST RATE PER PROTOCOL Last Titration: 01/12/18 09:11 Dose: 7 units/kg/hr, 3.969 mls/hr Pantoprazole Sodium (Protonix Ec Tab) 40 mg PO DAILY [facility] Last Admin: 01/12/18 13:23 Dose: 40 mg Rosuvastatin Calcium (Crestor) 20 mg PO HS [facility] Last Admin: 01/11/18 21:17 Dose: 20 mg - Labs Labs: 01/12/18 15:14 01/12/18 15:14 PT 11.4 SECONDS (9.7-12.2) 01/12/18 15:14 INR 1.0 01/12/18 15:14 APTT 59 SECONDS (21-34) H D 01/12/18 15:14
--- NOTE | 2018-01-12 20:00 | CARD ---
APPROVED REPORT EKG Measurement Heart [id number] <Conclusion> Normal sinus rhythm Anterior infarct, age undetermined Abnormal ECG
--- NOTE | 2018-01-12 20:00 | CARD ---
APPROVED REPORT EKG Measurement Heart [id number] <Conclusion> Normal sinus rhythm Possible Left atrial enlargement Inferior infarct, age undetermined Anterior infarct, age undetermined Abnormal ECG
[2018-01-13] MEDS: Heparin25000 units/250ml 1/2NS 25,000 UNITS/250 ML BAG IV PRN ×2 (03:32→03:35)
[2018-01-13 05:16] LABS: BASO % 0.5 % (0.0-2.0); EOS % 15.2 % (0.0-4.0); HEMOGLOBIN 9.8 g/dL (11.0-16.0); LYMPH % 29.8 % (20.0-40.0); MEAN CELL VOLUME 82.5 fL (81.0-99.0); MEAN CORPUSCULAR HEMOGLOBIN 26.5 pg (27.0-31.0); MEAN CORPUSCULAR HGB CONC 32.1 g/dL (33.0-37.0); MEAN PLATELET VOLUME 9.7 fL (7.2-11.7); MONO # 0.6 K/uL (0.0-0.8); MONO % 9.5 % (0.0-10.0); NRBC % 0.1 % (0.0-2.0); RBC 3.72 Mil/uL (3.80-5.20); RED CELL DISTRIBUTION WIDTH 16.1 % (11.5-14.5); WHITE BLOOD COUNT 6.7 K/uL (4.8-10.8)
--- NOTE | 2018-01-13 05:28 | HP ---
HISTORY OF PRESENT ILLNESS: An 82-year-old female who presented to the hospital with chief complaint of chest pain. The patient was found to have acute AR, advised admission. PHYSICAL EXAMINATION: GENERAL: The patient is a pleasant elderly female, awake, alert and oriented. VITAL SIGNS: Temperature 98, pulse 90. HEENT: Within normal limits. NECK: Supple. CHEST: Symmetrical. HEART: Regular. ABDOMEN: Soft. EXTREMITIES: No edema. IMPRESSION: The patient suffers from acute myocardial infarction, congestive heart failure. The patient to get bedrest. Supportive care. Chasity Quezada MD
--- NOTE | 2018-01-13 06:14 | CON ---
DATE: 01/12/2018 LOCATION: The patient is located in ICU, bed 12. REQUESTED BY: Chasity Quezada MD REASON FOR FOLLOWUP: CKD 4, CHF, cardiomyopathy, hypertension, and NSTEMI. HISTORY OF PRESENT ILLNESS: Mrs. Priest is an 82 years old, very pleasant elderly female with a past medical history significant for longstanding hypertension, hyperlipidemia, chronic kidney disease stage 4, cardiomyopathy with ejection fraction about 20%, moderate to severe LV dysfunction with bilateral small kidneys, multiple admissions to the hospital, was admitted with the chief complaints of shortness of breath and chest pain, and the patient was found to have elevated troponin levels; initially 5.0 and then, it went up to more than 9, now trending down slowly. The patient was also found to have anemia and status post transfusion of 1 unit of packed RBC yesterday. The patient is feeling better, not in acute distress. Denies any pain. Denies any shortness of breath at this time. Denies any nausea, vomiting, diarrhea. No edema of the legs. No urinary symptoms. PHYSICAL EXAMINATION: VITAL SIGNS: As follows, blood pressure 116/63, pulse 70, respirations 18, saturation 100%, and temperature is 98.5. Height 5 feet and weight is 97 pounds. GENERAL: Mrs. Priest is an 82 years elderly female, thin built, not in acute distress. HEENT: Pupils normal, reactive to accommodation. Conjunctivae pink. Sclerae anicteric. Tongue is moist. Trachea is midline. LUNGS: Symmetric on both sides. Bilateral breath sounds present. Occasional basal crackles present. CVS: [place] at the fifth intercostal space, midclavicular area. S1 and S2 audible. No murmur or gallop. ABDOMEN: Normal in appearance, soft, tympanic. No guarding. No rigidity. No hepatosplenomegaly. No abdominal bruit. The patient has a scar on midline subumbilical region from the previous surgery. 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 Nonfocal neuro examination. Cranial II through XII grossly intact. Sensory and motor system is within normal limits. EXTREMITIES: No cyanosis, no clubbing, no edema. CURRENT MEDICATIONS: Include as follows: Aspirin 81 mg daily, Coreg 3.125 mg p.o. b.i.d., and Crestor 20 mg p.o. at bedtime, subcu heparin 25,000 units in 250 ml, half-normal saline at 9 units/kg/hour, and Lasix 20 mg IV every 12 hours, Plavix 75 mg p.o. daily, and Protonix 40 mg p.o. daily. LABORATORY DATA: Include as follows, 01/12/2018, WBC 5.7, hemoglobin 10.4, hematocrit is 31, and platelets 160. PT is 11.4, PTT is 59. Sodium 138, potassium 5.4, chloride 103, CO2 of 25, BUN 52, creatinine 2.9, and glucose 145, calcium is 8.5, phosphorus 6.0, and magnesium 1.8. Total bili 0.7, AST 69, ALT 64, alkaline phosphatase 75, total protein 8, albumin is 4.3. Troponin, as of 01/11/2018, 6.8; as of 01/12/2018, troponin is 4.7. Chest x-ray as of 01/12/2018, markedly improved CHF. The patient with limited residual. ASSESSMENT AND PLAN: In summary, Mrs. Priest is 82 years old elderly female with history of hypertension, hyperlipidemia, coronary artery disease, chronic kidney disease stage 4, cardiomyopathy, anemia, metabolic acidosis, hyperkalemia with elevated troponin levels, and chest pain and shortness of breath. 1. [id number] myocardial infarction. 2. Congestive heart failure secondary to acute myocardial infarction. 3. Cardiomyopathy. 4. Chronic kidney disease 4. 5. Anemia. 6. Hyperkalemia secondary to renal failure. PLAN: Continue with gentle diuresis, and we will add Epogen 10,000 units every weekly, and also we will add Nephrocaps 1 tablet daily. Check iron, TIBC, ferritin level if not done yet. Discussed with the patient's next of the kin in rounds for possible hemodialysis. The patient needs to go for the cardiac cath. The family will discuss and will inform us regarding possible dialysis or no dialysis. We will follow with you. Thank you for allowing me to participate in your patient's care. Repeat labs in a.m. Oneil Ron MD
[2018-01-13 06:37] LABS: ALBUMIN 3.7 g/dL (3.5-5.0); CALCIUM 8.3 mg/dl (8.6-10.4)
[2018-01-13] MEDS: Pantoprazole 40 mg EC Tab PO SCH (09:18)
--- NOTE | 2018-01-13 11:03 | RAD ---
HISTORY: pulm edema COMPARISON: Chest radiograph dated 01/12/2018. FINDINGS: LUNGS: Right apical pleural-parenchymal scarring redemonstrated. Stable chronic prominence of the bilateral interstitial markings. No focal consolidation. PLEURA: Stable elevation of the left hemidiaphragm. No significant pleural effusion identified, no pneumothorax apparent. CARDIOVASCULAR: Atherosclerotic aortic calcifications. Cardiomediastinal silhouette stably enlarged. OSSEOUS STRUCTURES: Unchanged. VISUALIZED UPPER ABDOMEN: Normal. OTHER FINDINGS: None. IMPRESSION: Stable chronic prominence of the bilateral interstitial markings. No definite focal consolidation or pleural effusion. No significant interval change.
--- NOTE | 2018-01-13 12:09 | CP.PCM.CON ---
History of Present Illness - History of Present Illness History of Present Illness: Palliative consult requested by Doctor Brady for goals of care discussion Patient is a 82 yo lad admitted from home with complaints of chest pain. Patient reported to her daughter in law that her chest pain was similar to one she had last year when sustained heart attack. Patient was given ASA and Nitroglycerin by EMS and transferred to hospital. On admission Troponin 4.7. APTT 107, lasix IV initiated. BUN and [employer] 51/3.2, Doctor Bobby is fallowing for renal. Patient was given one unit of PRBCs PMH: CAD, CVA, VA 2017, EF 20% Soc. Hx: , lives at home, has three sons, goes to day care [facility]. Hx: Mother with kidney disease Review of Systems - Constitutional Constitutional: Weakness - EENT Eyes: absent: As Per HPI, Blind Spots, Blurred Vision, Change in Vision, Decreased Night Vision, Diplopia, Discharge, Dry Eye, Exophthalmos, Floaters, Irritation, Itchy Eyes, Loss of Peripheral Vision, Pain, Photophobia, Requires Corrective Lenses, Sees Flashes, Spots in Vision, Tunnel Vision, Other Visual Disturbances, Loss of Vision, Other Nose/Mouth/Throat: absent: As Per HPI, Epistaxis, Nasal Congestion, Nasal Discharge, Nasal Obstruction, Nasal Trauma, Nose Pain, Post Nasal Drip, Sinus Pain, Sinus Pressure, Bleeding Gums, Change in Voice, Dental Pain, Dry Mouth, Dysphagia, Halitosis, Hoarsness, Lip Swelling, Mouth Lesions, Mouth Pain, Odynophagia, Sore Throat, Throat Swelling, Tongue Swelling, Facial Pain, Neck Pain, Neck Mass, Other - Breasts Breasts: absent: As Per HPI, Change in Shape, Mass, Pain, Nipple Discharge, Nipple Inversion, Skin Changes, Swelling, Other - Cardiovascular Cardiovascular: Dyspnea, Dyspnea on Exertion - Respiratory Respiratory: Dyspnea on Exertion - Gastrointestinal Gastrointestinal: absent: As Per HPI, Abdominal Pain, Belching, Bloating, Change in Bowel Habits, Change in Stool Character, Coffee Ground Emesis, Constipation, Cramping, Diarrhea, Dyspepsia, Dysphagia, Early Satiety, Excessive Flatus, Fecal Incontinence, Heartburn, Hematemesis, Hematochezia, Loose Stools, Melena, Nausea, Odynophagia, Temesmus, Vomiting, Other - Genitourinary Genitourinary: absent: As Per HPI, Change in Urinary Stream, Difficulty Urinating, Dysuria, Flank Pain, Hematuria, Pyuria, Nocturia, Urinary Incontinence, Urinary Frequency, Urinary Hesitance, Urinary Urgency, Voiding Freq/Small Amts, Freq UTI, Hx Renal/Bladder Calculi, Hx /Renal Surgery, Bladder Distension, Other - Reproductive: Female Reproductive:Female: Post Menopausal - Menstruation Menstruation: Post Menopausal - Musculoskeletal Musculoskeletal: Muscle Weakness Additional comments: uses walker - Integumentary Integumentary: absent: As Per HPI, Acne, Alopecia, Bleeding Lesions, Change in Hair, Change in Nails, Change in Pigmentation, Changing Lesions, Dry Skin, Erythema, Furuncle, Hirsutism, Lesions, New Lesions, Non-Healing Lesions, Photosensitivity, Pruritus, Rash, Skin Pain, Skin Ulcer, Sores, Striae, Swelling , Unusual Bruising, Wounds, Jaundice, Other - Neurological Neurological: absent: As Per HPI, Abnormal Gait, Abnormal Hearing, Abnormal Movements, Abnormal Speech, Behavioral Changes, Burning Sensations, Confusion, Convulsions, Disequilibrium, Dizziness, Numbness, Focal Weakness, Frequent Falls , Headaches, Lack of Coordination, Loss of Vision, Memory Loss, Paresthesias, Radicular Pain, Restless Legs, Sensory Deficit, Syncope, Tingling, Tremor, Vertigo, Weakness, Other Visual Disturbances, Other - Psychiatric Psychiatric: absent: As Per HPI, Abnormal Sleep Pattern, Anhedonia, Anxiety, Auditory Hallucinations, Behavioral Changes, Change in Appetite, Change in Libido, Confusion, Depression, Difficulty Concentrating, Hallucinations, Homicidal Ideation, Hopelessness, Irritability, Memory Loss, Mood Swings, Panic Attacks, Paranoia, Suicidal Ideation, Visual Hallucinations, Tactile Hallucinations, Other - Endocrine Endocrine: absent: As Per HPI, Change in Body Appearance, Change in Libido, Cold Intolorance, Deepening of Voice, Excessive Sweating, Fatigue, Flushing, Heat Intolorance, Increase in Ring/Shoe/Hat Size, Palpitations, Polydipsia, Polyphagia, Polyuria, Other - Hematologic/Lymphatic Hematologic: absent: As Per HPI, Easy Bleeding, Easy Bruising, Lymphadenopathy, Other Past Patient History - Past Medical History & Family History Past Medical History?: Yes - Past Social History Smoking Status: Never Smoked - CARDIAC Hx Hypercholesterolemia: Yes Hx Hypertension: Yes - PULMONARY Hx Respiratory Disorders: No - NEUROLOGICAL HX Cerebrovascular Accident: Yes - HEENT Hx HEENT Problems: No - RENAL Hx Chronic Kidney Disease: Yes - ENDOCRINE/METABOLIC Hx Diabetes Mellitus Type 2: Yes - HEMATOLOGICAL/ONCOLOGICAL Hx Blood Disorders: No - INTEGUMENTARY Hx Dermatological Problems: No - MUSCULOSKELETAL/RHEUMATOLOGICAL Hx Musculoskeletal Disorders: No Hx Falls: No - GASTROINTESTINAL Hx Gastrointestinal Disorders: No - GENITOURINARY/GYNECOLOGICAL Hx Genitourinary Disorders: No - PSYCHIATRIC Hx Psychophysiologic Disorder: No Hx Substance Use: No - SURGICAL HISTORY Hx Surgeries: Yes Hx Hysterectomy: Yes Other/Comment: Carotid artery sx - ANESTHESIA Hx Anesthesia: Yes Hx Anesthesia Reactions: No Hx Malignant Hyperthermia: No Meds Allergies/Adverse Reactions: Allergies Allergy/AdvReac Type Severity Reaction Status Date / Time No Known Allergies Allergy Verified 01/11/18 04:20 - Medications Medications: Current Medications Aspirin (Aspirin Chewable) 81 mg PO DAILY [facility] Last Admin: 01/13/18 09:18 Dose: 81 mg Carvedilol (Coreg) 3.125 mg PO BID [facility] Last Admin: 01/13/18 09:18 Dose: 3.125 mg Clopidogrel Bisulfate (Plavix) 75 mg PO DAILY [facility] Last Admin: 01/13/18 09:18 Dose: 75 mg Furosemide (Lasix) 20 mg IVP Q12 [facility] Last Admin: 01/13/18 09:18 Dose: 20 mg Heparin Sodium/Sodium Chloride (Heparin 14608 Units/250ml 1/2 Normal Saline) 25 ,000 units in 250 mls @ 5.103 mls/hr IV .Q24H PRN; Protocol; 9 UNITS/KG/HR PRN Reason: ADJUST RATE PER PROTOCOL Last Titration: 01/13/18 06:30 Dose: 6 units/kg/hr, 3.402 mls/hr Pantoprazole Sodium (Protonix Ec Tab) 40 mg PO DAILY [facility] Last Admin: 01/13/18 09:18 Dose: 40 mg Rosuvastatin Calcium (Crestor) 20 mg PO HS [facility] Last Admin: 01/12/18 22:53 Dose: 20 mg Physical Exam - Constitutional Appears: Chronically Ill - Head Exam Head Exam: ATRAUMATIC, NORMAL INSPECTION, NORMOCEPHALIC - Eye Exam Eye Exam: EOMI, Normal appearance, PERRL Pupil Exam: NORMAL ACCOMODATION, PERRL - ENT Exam ENT Exam: Mucous Membranes Moist, Normal Exam - Neck Exam Neck exam: Positive for: Normal Inspection - Respiratory Exam Respiratory Exam: Clear to Auscultation Bilateral, NORMAL BREATHING PATTERN - Cardiovascular Exam Cardiovascular Exam: Tachycardia - GI/Abdominal Exam GI & Abdominal Exam: Normal Bowel Sounds, Soft - Rectal Exam Rectal Exam: Deferred - Extremities Exam Extremities exam: Positive for: normal inspection - Back Exam Back exam: NORMAL INSPECTION - Neurological Exam Neurological exam: Alert, Oriented x3 - Psychiatric Exam Psychiatric exam: Normal Affect, Normal Mood - Skin Skin Exam: Dry, Intact, Normal Color, Warm Results - Vital Signs Recent Vital Signs: Last Vital Signs Temp 98.1 F 01/13/18 07:30 Pulse 70 01/13/18 11:00 Resp 13 01/13/18 11:00 BP 84/46 L 01/13/18 11:00 Pulse Ox 100 01/13/18 11:00 - Labs Result Diagrams: 01/13/18 05:11 01/13/18 05:11 Labs: Laboratory Results - last 24 hr 01/12/18 01/12/18 01/12/18 15:14 15:14 15:14 WBC 5.7 RBC 3.78 L Hgb 10.4 L Hct 31.0 L MCV 82.0 MCH 27.4 MCHC 33.4 RDW 15.9 H Plt Count 160 MPV 9.5 Neut % (Auto) 48.2 L Lymph % (Auto) 27.9 [place] % (Auto) 9.9 Eos % (Auto) 13.4 H Baso % (Auto) 0.6 Neut # (Auto) 2.7 Lymph # (Auto) 1.6 [place] # (Auto) 0.6 Eos # (Auto) 0.8 H Baso # (Auto) 0.0 PT 11.4 INR 1.0 APTT 59 H D Sodium 138 Potassium 5.4 H Chloride 103 Carbon Dioxide 25 Anion Gap 17 BUN 52 H Creatinine 2.9 H Est GFR ( Amer) 19 Est GFR (Non-Af Amer) 15 Random Glucose 145 H Calcium 8.5 L Phosphorus 6.0 H Magnesium 1.8 Total Bilirubin 0.7 AST 69 H D ALT 64 H Alkaline Phosphatase 75 Total Protein 8.0 Albumin 4.3 Globulin 3.8 Albumin/Globulin Ratio 1.1 01/12/18 01/13/18 01/13/18 21:21 05:11 05:11 WBC 6.7 RBC 3.72 L Hgb 9.8 L Hct 30.7 L MCV 82.5 MCH 26.5 L MCHC 32.1 L RDW 16.1 H Plt Count 159 MPV 9.7 Neut % (Auto) 45.0 L Lymph % (Auto) 29.8 [place] % (Auto) 9.5 Eos % (Auto) 15.2 H Baso % (Auto) 0.5 Neut # (Auto) 3.0 Lymph # (Auto) 2.0 [place] # (Auto) 0.6 Eos # (Auto) 1.0 H Baso # (Auto) 0.0 PT INR APTT 37 H D Sodium 142 Potassium 4.8 Chloride 104 Carbon Dioxide 25 Anion Gap 17 BUN 51 H Creatinine 3.2 H Est GFR ( Amer) 17 Est GFR (Non-Af Amer) 14 Random Glucose 96 Calcium 8.3 L Phosphorus 6.6 H Magnesium 1.7 Total Bilirubin 0.3 AST 47 H D ALT 51 Alkaline Phosphatase 80 Total Protein 7.3 Albumin 3.7 Globulin 3.6 Albumin/Globulin Ratio 1.0 01/13/18 05:11 WBC RBC Hgb Hct MCV MCH MCHC RDW Plt Count MPV Neut % (Auto) Lymph % (Auto) [place] % (Auto) Eos % (Auto) Baso % (Auto) Neut # (Auto) Lymph # (Auto) [place] # (Auto) Eos # (Auto) Baso # (Auto) PT INR APTT 107 H* D Sodium Potassium Chloride Carbon Dioxide Anion Gap BUN Creatinine Est GFR ( Amer) Est GFR (Non-Af Amer) Random Glucose Calcium Phosphorus Magnesium Total Bilirubin AST ALT Alkaline Phosphatase Total Protein Albumin Globulin Albumin/Globulin Ratio Assessment & Plan - Assessment and Plan (Free Text) Assessment: Palliative consult Full Code, no Advance Directive on chart, PPS 30% I reviewed medical records, all diagnostic studies, examined and interviewed patient in the bed. Translation provided by daughter in law. Patient is alert, oriented, Gnosticist speaking, very [employer] [place] , in no acute distress. Patient denies chest pain / SOB. Breath sounds are diminished, normal air entry. HR 85, rhtm irregular. Abdomen soft, tolerates diet. denies constipation.Unsteady gait, uses walker at home. BP 159/130, HR 85, Coreg, Plavix, ASA, Heparin on board. Goals of care discussed with patient and daughter in law present. patient stated " I had VA". I reviewed her clinical condition and related her symptoms to diagnosis of VA and CHF. Poor kidney functions also discussed most likely result of poor perfusion secondary to EF 20%. Family wanted to ta;l to Doctor Bobby who was coming. Patient's daughter in law reported seeing decline in patient's condition since last year. Family would like patient to stay at home with VNS as opposed to going to Day care but were denied by insurance. Daughter in law states that patient gets sick often and one of family members needs to take day of and stay home. Code status discussed. Daughter in law said patient used to be DNR in the past, than reversed it to Full Code. The latest was that patient would want her three sons to make decision about Code status. I introduced POLST and asked daughter in law to make sure family makes this decision soon. This was discussed with primary RN Clarisa and Dctr Brady. i also made aware Doctor Jennie Priest who is patient's PMD. Impression * S/P VA * CHF * Weakness * Difficulties communicating needs due to language barrier * Code status not defined * Patient wants her three sons to decide on Code status Suggestion * Promote safety * Provide ways of communication in paient's [place] language * Full Code * Another family meeting to fallow to establish Code status * Full Code for now Advance planing 30min
--- NOTE | 2018-01-13 13:44 | CP.CCUPN ---
<Francesca Weber - Last Filed: 01/13/18 15:57> CCU Subjective - Physician Review Subjective (Free Text): 01/13/18 13:44 Pt seen and examined at bedside. No acute events overnight. Patient was sitting comfortably in the chair in the am. Patient denied having any CP, SOB, abd pain, N/v/D/C, F/C. Pt was complaining of left shoulder/anterior chest pain. Given tylenol and repositioned with some relief. Currently on NC 2.5 L. CCU Objective - Vital Signs / Intake & Output Vital Signs (Last 4 hours): Vital Signs Pulse Resp BP Pulse Ox 01/13/18 11:00 70 13 84/46 L 100 01/13/18 10:00 67 19 132/57 L 95 Intake and Output (Last 8hrs): Intake & Output 01/12/18 01/13/18 01/13/18 22:59 06:59 14:59 Intake Total 133.1 418.4 233.6 Output Total 240 350 400 Balance -106.9 68.4 -166.4 Weight 97 lb 10.636 oz Intake: IV 260.2 Intake, IV Amount 33.1 38.2 13.6 Left Antecubital 33.1 38.2 Right Forearm 13.6 Oral 100 120 220 Output: Urine 240 350 400 Urine, Voided 240 350 400 Urine/Stool Mix 0 Emesis 0 Other: # Bowel Movements 0 0 - Physical Exam Head: Positive for: Atraumatic, Normocephalic Mouth: Positive for: Moist Mucous Membranes Respiratory/Chest: Positive for: Clear to Auscultation. Negative for: Respiratory Distress, Accessory Muscle Use, Wheezes, Rales, Rhonchi Cardiovascular: Positive for: Regular Rate and Rhythm, Normal S1, S2. Negative for: Murmurs, Rub, Gallop Abdomen: Positive for: Normal Bowel Sounds. Negative for: Tenderness, Distention, Peritoneal Signs, Rebound, Guarding Lower Extremity: Negative for: Edema, CALF TENDERNESS, Tenderness Neurological: Positive for: GCS=15, Speech Normal Skin: Positive for: Warm, Dry, Normal Color. Negative for: Rashes Psychiatric: Positive for: Alert, Oriented x 3, Normal Insight, Normal Concentration - Medications Active Medications: Active Medications Generic Name Dose Route Start Last Admin Trade Name Freq PRN Reason Stop Dose Admin Aspirin 81 mg 01/11/18 10:00 01/13/18 09:18 Aspirin Chewable PO 81 mg DAILY MAYELA Administration Carvedilol 3.125 mg 01/11/18 10:00 01/13/18 09:18 Coreg PO 3.125 mg BID MAYELA Administration Clopidogrel Bisulfate 75 mg 01/11/18 10:00 01/13/18 09:18 Plavix PO 75 mg DAILY MAYELA Administration Furosemide 20 mg 01/11/18 10:00 01/13/18 09:18 Lasix IVP 20 mg Q12 MAYELA Administration Heparin Sodium/Sodium Chloride 25,000 units in 250 mls @ 5.103 mls/hr 22:30 01/13/18 06:30 Heparin 01430 Units/250ml 1/2 Normal Saline IV 6 units/kg/hr .Q24H PRN 3.402 mls/hr ADJUST RATE PER PROTOCOL Titration Protocol 9 UNITS/KG/HR Pantoprazole Sodium 40 mg 01/11/18 10:00 01/13/18 09:18 Protonix Ec Tab PO 40 mg DAILY MAYELA Administration Rosuvastatin Calcium 20 mg 01/11/18 22:00 01/12/18 22:53 Crestor PO 20 mg HS MAYELA Administration - Patient Studies Lab Studies: Microbiology Studies 01/11/18 12:02 MRSA Culture (Admit) - Final Nose MRSA NOT DETECTED Lab Studies 01/13/18 01/13/18 01/13/18 Range/Units 05:11 05:11 05:11 WBC 6.7 (4.8-10.8) K/uL RBC 3.72 L (3.80-5.20) Mil/uL Hgb 9.8 L (11.0-16.0) g/dL Hct 30.7 L (34.0-47.0) % MCV 82.5 (81.0-99.0) fL MCH 26.5 L (27.0-31.0) pg MCHC 32.1 L (33.0-37.0) g/dL RDW 16.1 H (11.5-14.5) % Plt Count 159 (130-400) K/uL MPV 9.7 (7.2-11.7) fL Neut % (Auto) 45.0 L (50.0-75.0) % Lymph % (Auto) 29.8 (20.0-40.0) % [place] % (Auto) 9.5 (0.0-10.0) % Eos % (Auto) 15.2 H (0.0-4.0) % Baso % (Auto) 0.5 (0.0-2.0) % Neut # (Auto) 3.0 (1.8-7.0) K/uL Lymph # (Auto) 2.0 (1.0-4.3) K/uL [place] # (Auto) 0.6 (0.0-0.8) K/uL Eos # (Auto) 1.0 H (0.0-0.7) K/uL Baso # (Auto) 0.0 (0.0-0.2) K/uL PT (9.7-12.2) SECONDS INR APTT 107 H* D (21-34) SECONDS Sodium 142 (132-148) mmol/L Potassium 4.8 (3.6-5.2) mmol/L Chloride 104 (98-107) mmol/L Carbon Dioxide 25 (22-30) mmol/L Anion Gap 17 (10-20) BUN 51 H (7-17) mg/dL Creatinine 3.2 H (0.7-1.2) mg/dL Est GFR ( Amer) 17 Est GFR (Non-Af Amer) 14 Random Glucose 96 (65-105) mg/dL Calcium 8.3 L (8.6-10.4) mg/dl Phosphorus 6.6 H (2.5-4.5) mg/dL Magnesium 1.7 (1.6-2.3) mg/dL Total Bilirubin 0.3 (0.2-1.3) mg/dL AST 47 H D (14-36) U/L ALT 51 (9-52) U/L Alkaline Phosphatase 80 (38-126) U/L Total Protein 7.3 (6.3-8.3) g/dL Albumin 3.7 (3.5-5.0) g/dL Globulin 3.6 (2.2-3.9) gm/dL Albumin/Globulin Ratio 1.0 (1.0-2.1) 01/12/18 01/12/18 01/12/18 Range/Units 21:21 15:14 15:14 WBC (4.8-10.8) K/uL RBC (3.80-5.20) Mil/uL Hgb (11.0-16.0) g/dL Hct (34.0-47.0) % MCV (81.0-99.0) fL MCH (27.0-31.0) pg MCHC (33.0-37.0) g/dL RDW (11.5-14.5) % Plt Count (130-400) K/uL MPV (7.2-11.7) fL Neut % (Auto) (50.0-75.0) % Lymph % (Auto) (20.0-40.0) % [place] % (Auto) (0.0-10.0) % Eos % (Auto) (0.0-4.0) % Baso % (Auto) (0.0-2.0) % Neut # (Auto) (1.8-7.0) K/uL Lymph # (Auto) (1.0-4.3) K/uL [place] # (Auto) (0.0-0.8) K/uL Eos # (Auto) (0.0-0.7) K/uL Baso # (Auto) (0.0-0.2) K/uL PT 11.4 (9.7-12.2) SECONDS INR 1.0 APTT 37 H D 59 H D (21-34) SECONDS Sodium 138 (132-148) mmol/L Potassium 5.4 H (3.6-5.2) mmol/L Chloride 103 (98-107) mmol/L Carbon Dioxide 25 (22-30) mmol/L Anion Gap 17 (10-20) BUN 52 H (7-17) mg/dL Creatinine 2.9 H (0.7-1.2) mg/dL Est GFR ( Amer) 19 Est GFR (Non-Af Amer) 15 Random Glucose 145 H (65-105) mg/dL Calcium 8.5 L (8.6-10.4) mg/dl Phosphorus 6.0 H (2.5-4.5) mg/dL Magnesium 1.8 (1.6-2.3) mg/dL Total Bilirubin 0.7 (0.2-1.3) mg/dL AST 69 H D (14-36) U/L ALT 64 H (9-52) U/L Alkaline Phosphatase 75 (38-126) U/L Total Protein 8.0 (6.3-8.3) g/dL Albumin 4.3 (3.5-5.0) g/dL Globulin 3.8 (2.2-3.9) gm/dL Albumin/Globulin Ratio 1.1 (1.0-2.1) 01/12/18 Range/Units 15:14 WBC 5.7 (4.8-10.8) K/uL RBC 3.78 L (3.80-5.20) Mil/uL Hgb 10.4 L (11.0-16.0) g/dL Hct 31.0 L (34.0-47.0) % MCV 82.0 (81.0-99.0) fL MCH 27.4 (27.0-31.0) pg MCHC 33.4 (33.0-37.0) g/dL RDW 15.9 H (11.5-14.5) % Plt Count 160 (130-400) K/uL MPV 9.5 (7.2-11.7) fL Neut % (Auto) 48.2 L (50.0-75.0) % Lymph % (Auto) 27.9 (20.0-40.0) % Lab[place] % (Auto) 9.9 (0.0-10.0) % Eos % (Auto) 13.4 H (0.0-4.0) % Baso % (Auto) 0.6 (0.0-2.0) % Neut # (Auto) 2.7 (1.8-7.0) K/uL Lymph # (Auto) 1.6 (1.0-4.3) K/uL [place] # (Auto) 0.6 (0.0-0.8) K/uL Eos # (Auto) 0.8 H (0.0-0.7) K/uL Baso # (Auto) 0.0 (0.0-0.2) K/uL PT (9.7-12.2) SECONDS INR APTT (21-34) SECONDS Sodium (132-148) mmol/L Potassium (3.6-5.2) mmol/L Chloride (98-107) mmol/L Carbon Dioxide (22-30) mmol/L Anion Gap (10-20) BUN (7-17) mg/dL Creatinine (0.7-1.2) mg/dL Est GFR ( Amer) Est GFR (Non-Af Amer) Random Glucose (65-105) mg/dL Calcium (8.6-10.4) mg/dl Phosphorus (2.5-4.5) mg/dL Magnesium (1.6-2.3) mg/dL Total Bilirubin (0.2-1.3) mg/dL AST (14-36) U/L ALT (9-52) U/L Alkaline Phosphatase (38-126) U/L Total Protein (6.3-8.3) g/dL Albumin (3.5-5.0) g/dL Globulin (2.2-3.9) gm/dL Albumin/Globulin Ratio (1.0-2.1) Laboratory Results - last 24 hr 01/12/18 01/12/18 01/12/18 15:14 15:14 15:14 WBC 5.7 RBC 3.78 L Hgb 10.4 L Hct 31.0 L MCV 82.0 MCH 27.4 MCHC 33.4 RDW 15.9 H Plt Count 160 MPV 9.5 Neut % (Auto) 48.2 L Lymph % (Auto) 27.9 Labette % (Auto) 9.9 Eos % (Auto) 13.4 H Baso % (Auto) 0.6 Neut # (Auto) 2.7 Lymph # (Auto) 1.6 Labette # (Auto) 0.6 Eos # (Auto) 0.8 H Baso # (Auto) 0.0 PT 11.4 INR 1.0 APTT 59 H D Sodium 138 Potassium 5.4 H Chloride 103 Carbon Dioxide 25 Anion Gap 17 BUN 52 H Creatinine 2.9 H Est GFR ( Amer) 19 Est GFR (Non-Af Amer) 15 Random Glucose 145 H Calcium 8.5 L Phosphorus 6.0 H Magnesium 1.8 Total Bilirubin 0.7 AST 69 H D ALT 64 H Alkaline Phosphatase 75 Total Protein 8.0 Albumin 4.3 Globulin 3.8 Albumin/Globulin Ratio 1.1 01/12/18 01/13/18 01/13/18 21:21 05:11 05:11 WBC 6.7 RBC 3.72 L Hgb 9.8 L Hct 30.7 L MCV 82.5 MCH 26.5 L MCHC 32.1 L RDW 16.1 H Plt Count 159 MPV 9.7 Neut % (Auto) 45.0 L Lymph % (Auto) 29.8 Labette % (Auto) 9.5 Eos % (Auto) 15.2 H Baso % (Auto) 0.5 Neut # (Auto) 3.0 Lymph # (Auto) 2.0 Labette # (Auto) 0.6 Eos # (Auto) 1.0 H Baso # (Auto) 0.0 PT INR APTT 37 H D Sodium 142 Potassium 4.8 Chloride 104 Carbon Dioxide 25 Anion Gap 17 BUN 51 H Creatinine 3.2 H Est GFR ( Amer) 17 Est GFR (Non-Af Amer) 14 Random Glucose 96 Calcium 8.3 L Phosphorus 6.6 H Magnesium 1.7 Total Bilirubin 0.3 AST 47 H D ALT 51 Alkaline Phosphatase 80 Total Protein 7.3 Albumin 3.7 Globulin 3.6 Albumin/Globulin Ratio 1.0 01/13/18 05:11 WBC RBC Hgb Hct MCV MCH MCHC RDW Plt Count MPV Neut % (Auto) Lymph % (Auto) Labette % (Auto) Eos % (Auto) Baso % (Auto) Neut # (Auto) Lymph # (Auto) Lab[place] # (Auto) Eos # (Auto) Baso # (Auto) PT INR APTT 107 H* D Sodium Potassium Chloride Carbon Dioxide Anion Gap BUN Creatinine Est GFR ( Amer) Est GFR (Non-Af Amer) Random Glucose Calcium Phosphorus Magnesium Total Bilirubin AST ALT Alkaline Phosphatase Total Protein Albumin Globulin Albumin/Globulin Ratio EKG/Cardiology Studies: Cardiology / EKG Studies 01/12/18 21:40 EKG [ELECTROCARDIOGRAM] Stat Comment: Mode Of Transportation: BED Reason For Exam: c/o left shoulder pain/adm.dx:NSTEMI Review of Systems - Constitutional Constitutional: absent: Fever, Weakness - EENT Eyes: absent: Change in Vision - Cardiovascular Cardiovascular: Other (left shoulder/upper outer chest pain). absent: Chest Pain at Rest, Dyspnea - Respiratory Respiratory: absent: Cough, Dyspnea - Gastrointestinal Gastrointestinal: absent: Abdominal Pain - Musculoskeletal Musculoskeletal: Arthralgias (left shoulder) - Neurological Neurological: absent: Dizziness, Headaches Critical Care Progress Note - Nutrition Nutrition: Nutrition Category Date Time Status Heart Healthy Diet [DIET] Diets 01/11/18 Breakfast Active Assessment/Plan - Assessment and Plan (Free Text) Assessment: Assessment: 82 year old female with past medical history of CAd s/p bypass, HTN, CKD, CVA is admitted to hospital for NSTEMI, pulmonary edema. Neuro: - A&Ox 3. Pleasantly conversing without difficulty. Stable Cardio: Hx of CAD s/p bypass in 05/2017 Echo done on 10/2017 showed LV EF of 20% with severe LV dysfunction. Ant and apical hypokinesis. Small pericardial effusion. Will repeat Echo A. NSTEMI - Noted to have elevated trops and EKG changes noted on V3-V5. - Pt started on heparin drip, titrate accordingly - Continue apsirin, plavix and coreg - Cardio, Dr. Bravo is consulted. Pending recs A. Heart failure with decrease EF - Pt presented with pulmonary edema likely from HF - Currently on lasixs 20 mg IVP q12. Continue coreg 3.125 mg po bid - Pt unable to receive ACEI/ARB therapy due to CKD. She is unable to receive spironolactone due to kyperkalemia of 6.1 this am Pulmonary: A. Pulmonary edema - CXR on admission showed mild pulmn venous congestive changes and possible small B/L effusions - Continue lasix 20 mg IVP q12 - NC prn GI: - heart healthy diet A. Transammonitis - Last hepatitis panel in 10/2017 was negative - Will continue to monitor : - Stable Renal: A. CKD - BUN/Cr: 51/3.2 - monitor kidney function -Nephor, Dr. Miller is consulted Heme: - Currently on heparin drip. Will continue to monitor PTT; titrate accordingly A. Anemia - transfused 1 unit of PRBC yesterday. Will continue to monitor Hgb Prophylaxis - Heparin - SCDs - protonix D.W. Dr. Abreu <Jordan Abreu - Last Filed: 01/13/18 17:08> CCU Objective - Vital Signs / Intake & Output Vital Signs (Last 4 hours): Vital Signs Pulse Resp BP Pulse Ox 01/13/18 16:00 73 21 115/58 L 97 01/13/18 15:00 76 18 132/65 99 01/13/18 14:02 76 14 97/32 L 97 01/13/18 14:00 72 13 82/47 L 98 Intake and Output (Last 8hrs): Intake & Output 01/13/18 01/13/18 01/13/18 06:59 14:59 22:59 Intake Total 418.4 484.6 229.0 Output Total 350 520 100 Balance 68.4 -35.4 129.0 Weight 97 lb 10.636 oz Intake: IV 260.2 40.8 Intake, IV Amount 38.2 23.8 9.0 Left Antecubital 38.2 Right Forearm 23.8 9.0 Oral 120 420 220 Output: Urine 350 520 100 Urine, Voided 350 520 100 Urine/Stool Mix 0 Emesis 0 0 Other: # Bowel Movements 0 0 0 - Medications Active Medications: Active Medications Generic Name Dose Route Start Last Admin Trade Name Freq PRN Reason Stop Dose Admin Aspirin 81 mg 01/11/18 10:00 01/13/18 09:18 Aspirin Chewable PO 81 mg DAILY MAYELA Administration Carvedilol 3.125 mg 01/11/18 10:00 01/13/18 17:01 Coreg PO 3.125 mg BID MAYELA Administration Clopidogrel Bisulfate 75 mg 01/11/18 10:00 01/13/18 09:18 Plavix PO 75 mg DAILY MAYELA Administration Furosemide 20 mg 01/11/18 10:00 01/13/18 09:18 Lasix IVP 20 mg Q12 MAYELA Administration Heparin Sodium/Sodium Chloride 25,000 units in 250 mls @ 5.103 mls/hr 22:30 01/13/18 14:25 Heparin 17552 Units/250ml 1/2 Normal Saline IV 8 units/kg/hr .Q24H PRN 4.536 mls/hr ADJUST RATE PER PROTOCOL Titration Protocol 9 UNITS/KG/HR Pantoprazole Sodium 40 mg 01/11/18 10:00 01/13/18 09:18 Protonix Ec Tab PO 40 mg DAILY MAYELA Administration Rosuvastatin Calcium 20 mg 01/11/18 22:00 01/12/18 22:53 Crestor PO 20 mg HS MAYELA Administration - Patient Studies Lab Studies: Lab Studies 01/13/18 01/13/18 01/13/18 Range/Units 13:53 05:11 05:11 WBC (4.8-10.8) K/uL RBC (3.80-5.20) Mil/uL Hgb (11.0-16.0) g/dL Hct (34.0-47.0) % MCV (81.0-99.0) fL MCH (27.0-31.0) pg MCHC (33.0-37.0) g/dL RDW (11.5-14.5) % Plt Count (130-400) K/uL MPV (7.2-11.7) fL Neut % (Auto) (50.0-75.0) % Lymph % (Auto) (20.0-40.0) % [place]ette % (Auto) (0.0-10.0) % Eos % (Auto) (0.0-4.0) % Baso % (Auto) (0.0-2.0) % Neut # (Auto) (1.8-7.0) K/uL Lymph # (Auto) (1.0-4.3) K/uL [place] # (Auto) (0.0-0.8) K/uL Eos # (Auto) (0.0-0.7) K/uL Baso # (Auto) (0.0-0.2) K/uL APTT 42 H D 107 H* D (21-34) SECONDS Sodium 142 (132-148) mmol/L Potassium 4.8 (3.6-5.2) mmol/L Chloride 104 (98-107) mmol/L Carbon Dioxide 25 (22-30) mmol/L Anion Gap 17 (10-20) BUN 51 H (7-17) mg/dL Creatinine 3.2 H (0.7-1.2) mg/dL Est GFR ( Amer) 17 Est GFR (Non-Af Amer) 14 Random Glucose 96 (65-105) mg/dL Calcium 8.3 L (8.6-10.4) mg/dl Phosphorus 6.6 H (2.5-4.5) mg/dL Magnesium 1.7 (1.6-2.3) mg/dL Total Bilirubin 0.3 (0.2-1.3) mg/dL AST 47 H D (14-36) U/L ALT 51 (9-52) U/L Alkaline Phosphatase 80 (38-126) U/L Total Protein 7.3 (6.3-8.3) g/dL Albumin 3.7 (3.5-5.0) g/dL Globulin 3.6 (2.2-3.9) gm/dL Albumin/Globulin Ratio 1.0 (1.0-2.1) 01/13/18 01/12/18 Range/Units 05:11 21:21 WBC 6.7 (4.8-10.8) K/uL RBC 3.72 L (3.80-5.20) Mil/uL Hgb 9.8 L (11.0-16.0) g/dL Hct 30.7 L (34.0-47.0) % MCV 82.5 (81.0-99.0) fL MCH 26.5 L (27.0-31.0) pg MCHC 32.1 L (33.0-37.0) g/dL RDW 16.1 H (11.5-14.5) % Plt Count 159 (130-400) K/uL MPV 9.7 (7.2-11.7) fL Neut % (Auto) 45.0 L (50.0-75.0) % Lymph % (Auto) 29.8 (20.0-40.0) % [place]ette % (Auto) 9.5 (0.0-10.0) % Eos % (Auto) 15.2 H (0.0-4.0) % Baso % (Auto) 0.5 (0.0-2.0) % Neut # (Auto) 3.0 (1.8-7.0) K/uL Lymph # (Auto) 2.0 (1.0-4.3) K/uL Labette # (Auto) 0.6 (0.0-0.8) K/uL Eos # (Auto) 1.0 H (0.0-0.7) K/uL Baso # (Auto) 0.0 (0.0-0.2) K/uL APTT 37 H D (21-34) SECONDS Sodium (132-148) mmol/L Potassium (3.6-5.2) mmol/L Chloride (98-107) mmol/L Carbon Dioxide (22-30) mmol/L Anion Gap (10-20) BUN (7-17) mg/dL Creatinine (0.7-1.2) mg/dL Est GFR ( Amer) Est GFR (Non-Af Amer) Random Glucose (65-105) mg/dL Calcium (8.6-10.4) mg/dl Phosphorus (2.5-4.5) mg/dL Magnesium (1.6-2.3) mg/dL Total Bilirubin (0.2-1.3) mg/dL AST (14-36) U/L ALT (9-52) U/L Alkaline Phosphatase (38-126) U/L Total Protein (6.3-8.3) g/dL Albumin (3.5-5.0) g/dL Globulin (2.2-3.9) gm/dL Albumin/Globulin Ratio (1.0-2.1) Laboratory Results - last 24 hr 01/12/18 01/13/18 01/13/18 21:21 05:11 05:11 WBC 6.7 RBC 3.72 L Hgb 9.8 L Hct 30.7 L MCV 82.5 MCH 26.5 L MCHC 32.1 L RDW 16.1 H Plt Count 159 MPV 9.7 Neut % (Auto) 45.0 L Lymph % (Auto) 29.8 Labette % (Auto) 9.5 Eos % (Auto) 15.2 H Baso % (Auto) 0.5 Neut # (Auto) 3.0 Lymph # (Auto) 2.0 Labette # (Auto) 0.6 Eos # (Auto) 1.0 H Baso # (Auto) 0.0 APTT 37 H D Sodium 142 Potassium 4.8 Chloride 104 Carbon Dioxide 25 Anion Gap 17 BUN 51 H Creatinine 3.2 H Est GFR ( Amer) 17 Est GFR (Non-Af Amer) 14 Random Glucose 96 Calcium 8.3 L Phosphorus 6.6 H Magnesium 1.7 Total Bilirubin 0.3 AST 47 H D ALT 51 Alkaline Phosphatase 80 Total Protein 7.3 Albumin 3.7 Globulin 3.6 Albumin/Globulin Ratio 1.0 01/13/18 01/13/18 05:11 13:53 WBC RBC Hgb Hct MCV MCH MCHC RDW Plt Count MPV Neut % (Auto) Lymph % (Auto) [place]ette % (Auto) Eos % (Auto) Baso % (Auto) Neut # (Auto) Lymph # (Auto) [place]ette # (Auto) Eos # (Auto) Baso # (Auto) APTT 107 H* D 42 H D Sodium Potassium Chloride Carbon Dioxide Anion Gap BUN Creatinine Est GFR ( Amer) Est GFR (Non-Af Amer) Random Glucose Calcium Phosphorus Magnesium Total Bilirubin AST ALT Alkaline Phosphatase Total Protein Albumin Globulin Albumin/Globulin Ratio EKG/Cardiology Studies: Cardiology / EKG Studies 01/12/18 21:40 EKG [ELECTROCARDIOGRAM] Stat Comment: Mode Of Transportation: BED Reason For Exam: c/o left shoulder pain/adm.dx:NSTEMI Critical Care Progress Note - Nutrition Nutrition: Nutrition Category Date Time Status Heart Healthy Diet [DIET] Diets 01/11/18 Breakfast Active Attending/Attestation - Attestation I have personally seen and examined this patient.: Yes I have fully participated in the care of the patient.: Yes I have reviewed all pertinent clinical information: Yes Notes (Text): 01/13/18 17:07 Patient seen and examined Denies shortness of breath denies chest pain Continue anticoagulation Follow-up H&H Worsening renal function Cardiac on hold Palliative consult Family to decide for DNR/DNI
[2018-01-13] MEDS ORDERED: Perflutren Lipid Microsphere 1.5 ML SUS IV ONE (14:07)
--- NOTE | 2018-01-13 19:58 | CP.PCM.PN ---
Subjective - Date & Time of Evaluation Date of Evaluation: 01/13/18 Time of Evaluation: 19:55 - Subjective Subjective: No chest pain, but some weakness. Objective - Vital Signs/Intake and Output Vital Signs (last 24 hours): Temp Pulse Resp BP Pulse Ox 98.1 F 68 19 85/42 L 100 01/13/18 07:30 01/13/18 19:00 01/13/18 19:00 01/13/18 19:00 01/13/18 19:00 Intake and Output: 01/13/18 01/14/18 18:59 06:59 Intake Total 722.6 4.5 Output Total 740 0 Balance -17.4 4.5 - Medications Medications: Current Medications Aspirin (Aspirin Chewable) 81 mg PO DAILY [facility] Last Admin: 01/13/18 09:18 Dose: 81 mg Carvedilol (Coreg) 3.125 mg PO BID [facility] Last Admin: 01/13/18 17:01 Dose: 3.125 mg Clopidogrel Bisulfate (Plavix) 75 mg PO DAILY [facility] Last Admin: 01/13/18 09:18 Dose: 75 mg Furosemide (Lasix) 20 mg IVP Q12 [facility] Last Admin: 01/13/18 09:18 Dose: 20 mg Heparin Sodium/Sodium Chloride (Heparin 83230 Units/250ml 1/2 Normal Saline) 25 ,000 units in 250 mls @ 5.103 mls/hr IV .Q24H PRN; Protocol; 9 UNITS/KG/HR PRN Reason: ADJUST RATE PER PROTOCOL Last Titration: 01/13/18 14:25 Dose: 8 units/kg/hr, 4.536 mls/hr Pantoprazole Sodium (Protonix Ec Tab) 40 mg PO DAILY [facility] Last Admin: 01/13/18 09:18 Dose: 40 mg Rosuvastatin Calcium (Crestor) 20 mg PO HS [facility] Last Admin: 01/12/18 22:53 Dose: 20 mg - Labs Labs: 01/13/18 05:11 01/13/18 05:11 PT 11.4 SECONDS (9.7-12.2) 01/12/18 15:14 INR 1.0 01/12/18 15:14 APTT 42 SECONDS (21-34) H D 01/13/18 13:53 - Head Exam Head Exam: NORMOCEPHALIC - Neck Exam Neck Exam: Normal Inspection - Respiratory Exam Respiratory Exam: NORMAL BREATHING PATTERN - Cardiovascular Exam Cardiovascular Exam: REGULAR RHYTHM - Extremities Exam Extremities Exam: Normal Inspection - Neurological Exam Neurological Exam: Alert, Oriented x3 Assessment and Plan (1) Acute non-ST segment elevation myocardial infarction Assessment & Plan: Stable. Continue DAPT. Status: Acute (2) Chronic congestive heart failure Assessment & Plan: LV systolic dysfunction. D/C IV lasix. HCTZ 2.4 PO BID. Status: Acute (3) CAD (coronary artery disease) Assessment & Plan: Discussed with family, if creatine improves will consider CATH otherwise medical management. Status: Acute (4) CRI (chronic renal insufficiency) Assessment & Plan: D/C IV laisx. Nephrology evaluation. Status: Acute
--- NOTE | 2018-01-13 20:29 | CP.PCM.PN ---
Subjective - Date & Time of Evaluation Date of Evaluation: 01/13/18 Time of Evaluation: 20:25 - Subjective Subjective: Patient had discussion earlier in the day about living will, code status, by primary team and palliative care. The patient and family both decided that it would be patient's wish and best interest to naturally without aggressive measures and will sign DNR/DNI on her own, she is accompanied by the family. Patient signs DNR/DNI, orders inserted in the medical record. Objective - Vital Signs/Intake and Output Vital Signs (last 24 hours): Temp Pulse Resp BP Pulse Ox 98.1 F 68 19 85/42 L 100 01/13/18 07:30 01/13/18 19:00 01/13/18 19:00 01/13/18 19:00 01/13/18 19:00 Intake and Output: 01/13/18 01/14/18 18:59 06:59 Intake Total 722.6 4.5 Output Total 740 0 Balance -17.4 4.5 - Medications Medications: Current Medications Aspirin (Aspirin Chewable) 81 mg PO DAILY [facility] Last Admin: 01/13/18 09:18 Dose: 81 mg Carvedilol (Coreg) 3.125 mg PO BID [facility] Last Admin: 01/13/18 17:01 Dose: 3.125 mg Clopidogrel Bisulfate (Plavix) 75 mg PO DAILY [facility] Last Admin: 01/13/18 09:18 Dose: 75 mg Hydrochlorothiazide (Microzide) 12.5 mg PO DAILY [facility] Heparin Sodium/Sodium Chloride (Heparin 43895 Units/250ml 1/2 Normal Saline) 25 ,000 units in 250 mls @ 5.103 mls/hr IV .Q24H PRN; Protocol; 9 UNITS/KG/HR PRN Reason: ADJUST RATE PER PROTOCOL Last Titration: 01/13/18 14:25 Dose: 8 units/kg/hr, 4.536 mls/hr Pantoprazole Sodium (Protonix Ec Tab) 40 mg PO DAILY [facility] Last Admin: 01/13/18 09:18 Dose: 40 mg Rosuvastatin Calcium (Crestor) 20 mg PO HS [facility] Last Admin: 01/12/18 22:53 Dose: 20 mg - Labs Labs: 01/13/18 05:11 01/13/18 05:11 PT 11.4 SECONDS (9.7-12.2) 01/12/18 15:14 INR 1.0 01/12/18 15:14 APTT 42 SECONDS (21-34) H D 01/13/18 13:53
--- NOTE | 2018-01-13 23:22 | CARD ---
APPROVED REPORT EKG Measurement Heart [id number] <Conclusion> Normal sinus rhythm Inferior infarct, age undetermined Anterior infarct, age undetermined T wave abnormality, consider lateral ischemia Abnormal ECG
--- NOTE | 2018-01-13 23:47 | CARD ---
APPROVED REPORT EKG Measurement Heart [id number] <Conclusion> Normal sinus rhythm Inferior infarct, age undetermined Anterior infarct, age undetermined T wave abnormality, consider lateral ischemia Abnormal ECG
--- NOTE | 2018-01-14 00:22 | CON ---
DATE: 01/13/2018 HISTORY OF PRESENT ILLNESS: This is an 82-year-old [place] female, came to the emergency room with history of severe chest pain. As per daughter, the patient became acutely short of breath associated with chest pain beginning on the day of admission at 3 pm. The patient states that the pain is similar to myocardial infarction last year. EMS gave four aspirin and gave Lasix IV and was brought to the emergency room. The patient was found to have positive troponin. EKG was non-ST elevation. So the patient was admitted. PAST MEDICAL HISTORY: History of coronary artery disease, myocardial infarction, CVA, hypertension, hyperlipidemia, chronic renal failure. REVIEW OF SYSTEMS: CARDIOVASCULAR SYSTEM: As mentioned above. RESPIRATORY SYSTEM: Positive for shortness of breath. GASTROINTESTINAL SYSTEM: Negative for nausea, vomiting, abdominal pain. DIGITAL RECRUITER: No focal neurological complaints offered. No edema of the legs. MEDICATIONS: The patient's medications are reviewed by me. ALLERGIES: NO KNOWN ALLERGY. FAMILY HISTORY: No inherited disease. SOCIAL HISTORY: Nonsmoker, nonalcoholic, no IVDA. PHYSICAL EXAMINATION: GENERAL: This is an 82-year-old [place]kin[place] female, tachypneic, dyspneic. VITAL SIGNS: Temperature 97.9, pulse 77, respirations 36, blood pressure 150/87 mmHg, pulse ox is 100% on room air. HEENT: Normal. JVP is flat. Carotids no bruits. LUNGS: Bilateral basilar rales present. HEART: S1, S2 normal. No gallop, no murmur. ABDOMEN: Soft, nontender. No organomegaly. DIGITAL RECRUITER: No focal neurological deficits. No edema of the legs. LABORATORY DATA: On admission, EKG is within normal limits. Troponins are elevated. Hemoglobin 8.1 with BUN 44, creatinine 2.8. Potassium 6.1. Chest x-ray shows pulmonary congestion. IMPRESSION: 1. Non-ST elevation myocardial infarction. 2. Coronary artery disease. 3. Chronic renal failure. 4. Severe anemia. PLAN: Agree with present management. The case was discussed with the family. The family denies the patient to be on dialysis prior to cardiac catheterization. The family also agrees for DNR after discussing with the family members. We will continue supportive care, all other medication as needed. Marilin Priest MD [facility] # [phone]
[2018-01-14 06:11] LABS: BASO % 0.7 % (0.0-2.0); EOS # 1.2 K/uL (0.0-0.7); EOS % 18.1 % (0.0-4.0); HEMOGLOBIN 10.1 g/dL (11.0-16.0); LYMPH # 1.9 K/uL (1.0-4.3); LYMPH % 28.8 % (20.0-40.0); MEAN CELL VOLUME 82.2 fL (81.0-99.0); MEAN CORPUSCULAR HEMOGLOBIN 26.9 pg (27.0-31.0); MEAN CORPUSCULAR HGB CONC 32.8 g/dL (33.0-37.0); MEAN PLATELET VOLUME 9.9 fL (7.2-11.7); MONO # 0.6 K/uL (0.0-0.8); MONO % 9.1 % (0.0-10.0); NEUT # 2.9 K/uL (1.8-7.0); NEUT % 43.3 % (50.0-75.0); NRBC % 0.3 % (0.0-2.0); RBC 3.75 Mil/uL (3.80-5.20); RED CELL DISTRIBUTION WIDTH 16.1 % (11.5-14.5); WHITE BLOOD COUNT 6.6 K/uL (4.8-10.8)
[2018-01-14 06:23] LABS: ALB/GLOB RATIO 1.1 (1.0-2.1); CALCIUM 8.9 mg/dl (8.6-10.4)
[2018-01-14] MEDS: Pantoprazole 40 mg EC Tab PO SCH (09:27)
[2018-01-14] MEDS ORDERED: Sod Polystyrene Sulf 15 gm/60 ml Susp PO ONE (09:45)
--- NOTE | 2018-01-14 12:06 | CP.PCM.PN ---
Subjective - Date & Time of Evaluation Date of Evaluation: 01/14/18 Time of Evaluation: 12:06 - Subjective Subjective: pt is seen and examined, follow up consult is dictated #[id number] Objective - Vital Signs/Intake and Output Vital Signs (last 24 hours): Temp Pulse Resp BP Pulse Ox 98.2 F 65 18 157/58 H 100 01/14/18 04:00 01/14/18 10:00 01/14/18 10:00 01/14/18 10:00 01/14/18 10:00 Intake and Output: 01/14/18 01/14/18 06:59 18:59 Intake Total 54.0 342.5 Output Total 600 200 Balance -546.0 142.5 - Medications Medications: Current Medications Aspirin (Aspirin Chewable) 81 mg PO DAILY [facility] Last Admin: 01/14/18 09:27 Dose: 81 mg Carvedilol (Coreg) 3.125 mg PO BID [facility] Last Admin: 01/14/18 09:27 Dose: 3.125 mg Clopidogrel Bisulfate (Plavix) 75 mg PO DAILY [facility] Last Admin: 01/14/18 09:27 Dose: 75 mg Hydrochlorothiazide (Microzide) 12.5 mg PO DAILY [facility] Last Admin: 01/14/18 09:27 Dose: 12.5 mg Heparin Sodium/Sodium Chloride (Heparin 13161 Units/250ml 1/2 Normal Saline) 25 ,000 units in 250 mls @ 5.103 mls/hr IV .Q24H PRN; Protocol; 9 UNITS/KG/HR PRN Reason: ADJUST RATE PER PROTOCOL Last Titration: 01/13/18 14:25 Dose: 8 units/kg/hr, 4.536 mls/hr Pantoprazole Sodium (Protonix Ec Tab) 40 mg PO DAILY [facility] Last Admin: 01/14/18 09:27 Dose: 40 mg Rosuvastatin Calcium (Crestor) 20 mg PO HS [facility] Last Admin: 01/13/18 21:33 Dose: 20 mg - Labs Labs: 01/14/18 05:59 01/14/18 06:00 PT 11.4 SECONDS (9.7-12.2) 01/12/18 15:14 INR 1.0 01/12/18 15:14 APTT 53 SECONDS (21-34) H D 01/14/18 02:30
--- NOTE | 2018-01-14 12:33 | CP.CCUPN ---
CCU Subjective - Physician Review Events Since Last Encounter (Free Text): 01/14/18 12:30 patient seen and examined Sitting comfortably in no acute distress Denies any chest pain Family signed DNR DNI Afebrile No shortness of breath CCU Objective - Vital Signs / Intake & Output Vital Signs (Last 4 hours): Vital Signs Temp Pulse Resp BP Pulse Ox 01/14/18 12:16 97.7 F 20 01/14/18 12:00 74 20 118/66 100 01/14/18 11:00 70 18 128/65 100 01/14/18 10:00 65 18 157/58 H 100 01/14/18 09:00 56 L 14 163/65 H 100 Intake and Output (Last 8hrs): Intake & Output 01/13/18 01/14/18 01/14/18 22:59 06:59 14:59 Intake Total 256.0 36.0 467.0 Output Total 320 500 300 Balance -64.0 -464.0 167.0 Weight 97 lb 3.2 oz Intake: Intake, IV Amount 36.0 36.0 27.0 Right Forearm 36.0 36.0 27.0 Oral 220 440 Output: Urine 320 500 300 Urine, Voided 320 500 300 Emesis 0 Other: # Voids Urine, Voided 1 1 # Bowel Movements 1 - Physical Exam Head: Positive for: Atraumatic, Normocephalic Mouth: Positive for: Moist Mucous Membranes Respiratory/Chest: Positive for: Clear to Auscultation. Negative for: Respiratory Distress, Accessory Muscle Use, Wheezes, Rales, Rhonchi Cardiovascular: Positive for: Regular Rate and Rhythm, Normal S1, S2. Negative for: Murmurs, Rub, Gallop Abdomen: Positive for: Normal Bowel Sounds. Negative for: Tenderness, Distention, Peritoneal Signs, Rebound, Guarding Lower Extremity: Negative for: Edema, CALF TENDERNESS, Tenderness Neurological: Positive for: GCS=15, Speech Normal Skin: Positive for: Warm, Dry, Normal Color. Negative for: Rashes Psychiatric: Positive for: Alert, Oriented x 3, Normal Insight, Normal Concentration - Medications Active Medications: Active Medications Generic Name Dose Route Start Last Admin Trade Name Freq PRN Reason Stop Dose Admin Aspirin 81 mg 01/11/18 10:00 01/14/18 09:27 Aspirin Chewable PO 81 mg DAILY [facility] Administration Carvedilol 3.125 mg 01/11/18 10:00 01/14/18 09:27 Coreg PO 3.125 mg BID MAYELA Administration Clopidogrel Bisulfate 75 mg 01/11/18 10:00 01/14/18 09:27 Plavix PO 75 mg DAILY [facility] Administration Hydrochlorothiazide 12.5 mg 01/14/18 10:00 01/14/18 09:27 Microzide PO 12.5 mg DAILY [facility] Administration Heparin Sodium/Sodium Chloride 25,000 units in 250 mls @ 5.103 mls/hr 22:30 01/13/18 14:25 Heparin 08394 Units/250ml 1/2 Normal Saline IV 8 units/kg/hr .Q24H PRN 4.536 mls/hr ADJUST RATE PER PROTOCOL Titration Protocol 9 UNITS/KG/HR Pantoprazole Sodium 40 mg 01/11/18 10:00 01/14/18 09:27 Protonix Ec Tab PO 40 mg DAILY [facility] Administration Rosuvastatin Calcium 20 mg 01/11/18 22:00 01/13/18 21:33 Crestor PO 20 mg HS MAYELA Administration - Patient Studies Lab Studies: Lab Studies 01/14/18 01/14/18 01/14/18 Range/Units 06:00 05:59 02:30 WBC 6.6 (4.8-10.8) K/uL RBC 3.75 L (3.80-5.20) Mil/uL Hgb 10.1 L (11.0-16.0) g/dL Hct 30.8 L (34.0-47.0) % MCV 82.2 (81.0-99.0) fL MCH 26.9 L (27.0-31.0) pg MCHC 32.8 L (33.0-37.0) g/dL RDW 16.1 H (11.5-14.5) % Plt Count 166 (130-400) K/uL MPV 9.9 (7.2-11.7) fL Neut % (Auto) 43.3 L (50.0-75.0) % Lymph % (Auto) 28.8 (20.0-40.0) % [place] % (Auto) 9.1 (0.0-10.0) % Eos % (Auto) 18.1 H (0.0-4.0) % Baso % (Auto) 0.7 (0.0-2.0) % Neut # (Auto) 2.9 (1.8-7.0) K/uL Lymph # (Auto) 1.9 (1.0-4.3) K/uL [place] # (Auto) 0.6 (0.0-0.8) K/uL Eos # (Auto) 1.2 H (0.0-0.7) K/uL Baso # (Auto) 0.0 (0.0-0.2) K/uL APTT 53 H D (21-34) SECONDS Sodium 138 (132-148) mmol/L Potassium 5.5 H (3.6-5.2) mmol/L Chloride 103 (98-107) mmol/L Carbon Dioxide 24 (22-30) mmol/L Anion Gap 16 (10-20) BUN 53 H (7-17) mg/dL Creatinine 3.2 H (0.7-1.2) mg/dL Est GFR ( Amer) 17 Est GFR (Non-Af Amer) 14 Random Glucose 100 (65-105) mg/dL Calcium 8.9 (8.6-10.4) mg/dl Phosphorus 5.1 H (2.5-4.5) mg/dL Magnesium 1.6 (1.6-2.3) mg/dL Total Bilirubin 0.6 (0.2-1.3) mg/dL AST 45 H (14-36) U/L ALT 53 H (9-52) U/L Alkaline Phosphatase 76 (38-126) U/L Total Protein 7.6 (6.3-8.3) g/dL Albumin 4.0 (3.5-5.0) g/dL Globulin 3.6 (2.2-3.9) gm/dL Albumin/Globulin Ratio 1.1 (1.0-2.1) 01/13/18 01/13/18 Range/Units 20:43 13:53 WBC (4.8-10.8) K/uL RBC (3.80-5.20) Mil/uL Hgb (11.0-16.0) g/dL Hct (34.0-47.0) % MCV (81.0-99.0) fL MCH (27.0-31.0) pg MCHC (33.0-37.0) g/dL RDW (11.5-14.5) % Plt Count (130-400) K/uL MPV (7.2-11.7) fL Neut % (Auto) (50.0-75.0) % Lymph % (Auto) (20.0-40.0) % [place] % (Auto) (0.0-10.0) % Eos % (Auto) (0.0-4.0) % Baso % (Auto) (0.0-2.0) % Neut # (Auto) (1.8-7.0) K/uL Lymph # (Auto) (1.0-4.3) K/uL [place] # (Auto) (0.0-0.8) K/uL Eos # (Auto) (0.0-0.7) K/uL Baso # (Auto) (0.0-0.2) K/uL APTT 76 H D 42 H D (21-34) SECONDS Sodium (132-148) mmol/L Potassium (3.6-5.2) mmol/L Chloride (98-107) mmol/L Carbon Dioxide (22-30) mmol/L Anion Gap (10-20) BUN (7-17) mg/dL Creatinine (0.7-1.2) mg/dL Est GFR ( Amer) Est GFR (Non-Af Amer) Random Glucose (65-105) mg/dL Calcium (8.6-10.4) mg/dl Phosphorus (2.5-4.5) mg/dL Magnesium (1.6-2.3) mg/dL Total Bilirubin (0.2-1.3) mg/dL AST (14-36) U/L ALT (9-52) U/L Alkaline Phosphatase (38-126) U/L Total Protein (6.3-8.3) g/dL Albumin (3.5-5.0) g/dL Globulin (2.2-3.9) gm/dL Albumin/Globulin Ratio (1.0-2.1) Laboratory Results - last 24 hr 01/13/18 01/13/18 01/14/18 13:53 20:43 02:30 WBC RBC Hgb Hct MCV MCH MCHC RDW Plt Count MPV Neut % (Auto) Lymph % (Auto) [place] % (Auto) Eos % (Auto) Baso % (Auto) Neut # (Auto) Lymph # (Auto) [place] # (Auto) Eos # (Auto) Baso # (Auto) APTT 42 H D 76 H D 53 H D Sodium Potassium Chloride Carbon Dioxide Anion Gap BUN Creatinine Est GFR ( Amer) Est GFR (Non-Af Amer) Random Glucose Calcium Phosphorus Magnesium Total Bilirubin AST ALT Alkaline Phosphatase Total Protein Albumin Globulin Albumin/Globulin Ratio 01/14/18 01/14/18 05:59 06:00 WBC 6.6 RBC 3.75 L Hgb 10.1 L Hct 30.8 L MCV 82.2 MCH 26.9 L MCHC 32.8 L RDW 16.1 H Plt Count 166 MPV 9.9 Neut % (Auto) 43.3 L Lymph % (Auto) 28.8 [place] % (Auto) 9.1 Eos % (Auto) 18.1 H Baso % (Auto) 0.7 Neut # (Auto) 2.9 Lymph # (Auto) 1.9 [place] # (Auto) 0.6 Eos # (Auto) 1.2 H Baso # (Auto) 0.0 APTT Sodium 138 Potassium 5.5 H Chloride 103 Carbon Dioxide 24 Anion Gap 16 BUN 53 H Creatinine 3.2 H Est GFR ( Amer) 17 Est GFR (Non-Af Amer) 14 Random Glucose 100 Calcium 8.9 Phosphorus 5.1 H Magnesium 1.6 Total Bilirubin 0.6 AST 45 H ALT 53 H Alkaline Phosphatase 76 Total Protein 7.6 Albumin 4.0 Globulin 3.6 Albumin/Globulin Ratio 1.1 Review of Systems - Review of Systems Systems not reviewed;Unavailable: Language Barrier Critical Care Progress Note - Nutrition Nutrition: Nutrition Category Date Time Status Heart Healthy Diet [DIET] Diets 01/11/18 Breakfast Active Assessment/Plan (1) Acute non-ST segment elevation myocardial infarction Current Visit: Yes Status: Acute Comment: continue present medication Family signed DNR DNI Worsening renal function Transfer to floor if patient/family refuses cardiac cath (2) Acute on chronic renal failure Current Visit: No Status: Acute
[2018-01-14] MEDS: Heparin25000 units/250ml 1/2NS 25,000 UNITS/250 ML BAG IV PRN (17:32)
--- NOTE | 2018-01-15 00:50 | CARD ---
APPROVED REPORT EXAM: Two-dimensional echocardiogram with contrast. Other Information Quality : GoodRhythm : Echo Enhancing Agent Indication: Rule out thrombus Agent/Amount Used: Definity 2D DIMENSIONS IVSd1.2 (0.7-1.1cm)LVDd4.0 (3.9-5.9cm) PWd1.3 (0.7-1.1cm)LVDs2.8 (2.5-4.0cm) FS (%) 30.7 %LVEF (%)20.0 (>50%) M-Mode DIMENSIONS IVSd1.21 (0.7-1.1cm)LVDd4.79 (4.0-5.6cm) PWd0.92 (0.7-1.1cm)FS (%) 24 % LVDs3.65 (2.0-3.8cm)LVEF (%)20 (>50%) Mitral Valve E/A ratio0.0 TDI E/Lateral E'0.0E/Medial E'0.0 LEFT VENTRICLE The Left Ventricle is mildly dilated. Proximal septal thickening is noted. Left ventricle systolic function is severely impaired. The Ejection Fraction is 20%. There is mild dyskinesis in the apex wall. There is global hypokinesis of the left ventricle. No left ventricle thrombus noted on this study using Definity contrast. Spontaneous contrast is noted consistent with the low flow state. RIGHT VENTRICLE The right ventricle is normal size. There is normal right ventricular wall thickness. Systolic function is severely reduced. ATRIA The left atrium size is normal. The right atrium size is normal. The interatrial septum is intact with no evidence for an atrial septal defect. AORTIC VALVE The aortic valve is mildly to moderately sclerotic. No aortic regurgitation is present. There is no aortic valvular stenosis. MITRAL VALVE The mitral valve is normal in structure. There is no evidence of mitral valve prolapse. There is no mitral valve stenosis. There is no mitral valve regurgitation noted. TRICUSPID VALVE The tricuspid valve is normal in structure. There is mild tricuspid regurgitation. There is no tricuspid valve prolapse or vegetation. There is no tricuspid valve stenosis. PULMONIC VALVE The pulmonic valve is not well visualized. There is mild pulmonic valvular regurgitation. GREAT VESSELS The aortic root is normal in size. PERICARDIAL EFFUSION There is a small loculated posterior pericardial effusion. There is a moderate-large loculated anterior pericardial effusion. There is an evidence of possible diastolic compression of the right ventricle pericardial effusion suggestive of cardiac tamponade. Please correlate clinically. <Conclusion> Left ventricle systolic function is severely impaired. The Ejection Fraction is 20%. No left ventricle thrombus noted on this study using Definity contrast. No aortic regurgitation is present. There is no mitral valve regurgitation noted. There is mild tricuspid regurgitation. There is mild pulmonic valvular regurgitation. There is a moderate-large loculated anterior pericardial effusion. There is an evidence of possible diastolic compression of the right ventricle pericardial effusion suggestive of cardiac tamponade. Please correlate clinically.
--- NOTE | 2018-01-15 04:44 | PN ---
DATE: 01/14/2018 FOLLOWUP RENAL CONSULTATION LOCATION: The patient is located in ICU bed 1. REQUESTED BY: Chasity Quezada MD REASON FOR FOLLOWUP: Acute renal failure, chronic kidney disease, acute MA, CHF, hyperkalemia, and metabolic acidosis. HISTORY OF PRESENT ILLNESS: Mrs. 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 The patient was found to have a non-Q MA and also being treated for CHF and pulmonary edema. The patient was also found to have low H and H and transfused 1 unit of packed RBC. The patient is feeling much better today, not in acute distress. Denies any chest pain. Denies any palpitation. No nausea, vomiting, or diarrhea. The patient is refusing hemodialysis at this time. Now, the patient is a DNR/DNI. PHYSICAL EXAMINATION: VITAL SIGNS: As follows. Blood pressure 122/73, pulse 76, respirations 14, saturation 93% to 99%, and temperature 97.7. Height is 5 feet. Weight is 97 pounds. GENERAL: Mrs. Priest is an 82 years elderly female, not in distress. HEENT: Pupils are normal and reactive to light and accommodation. Conjunctivae pink. Sclerae anicteric. Tongue is moist. Trachea is midline. LUNGS: Symmetric on both sides. Bilateral breath sounds present. Clear to auscultation. CVS: [place] at the fifth intercostal space, midclavicular line. S1, S2 audible. No murmur or gallop. ABDOMEN: Normal in appearance. Soft, tympanic. No guarding. No rigidity. No hepatosplenomegaly. OVEN STRIPPER: The patient is alert, awake, oriented x3. Nonfocal neuro examination. Cranial nerves II-XII grossly intact. Sensory and motor system is within normal limits. EXTREMITIES: No cyanosis, no clubbing, no edema. CURRENT MEDICATIONS: Include as follows: Aspirin 81 mg daily, Coreg 3.125 mg p.o. b.i.d., Crestor 20 mg p.o. at bedtime, heparin 25,000 units in 250 mL at 9 units/kg per hour, hydrochlorothiazide 12.5 mg p.o. daily, Plavix 75 mg p.o. daily, and Protonix 40 mg p.o. daily. LABORATORY DATA: Include as follows as of 01/14/2018: WBC 6.6, hemoglobin 10.1, hematocrit is 30.8, platelets 166. Sodium 138, potassium 5.5, chloride 103, CO2 of 20, BUN 53, creatinine 3.2, glucose 100, and calcium 8.9. Phosphorus 5.1, magnesium 1.6. Total bili 0.6, AST 45, ALT 53, alkaline phosphatase 76, total protein 7.6, albumin is 4. Stool for occult blood is negative. ASSESSMENT: In summary, Mrs. Priest is an 82 years elderly female with hypertension, coronary artery disease, cardiomyopathy, status post cardiac catheterization and stent placement about eight months ago, chronic kidney disease 4, was admitted with worsening renal function and shortness of breath and chest pain and elevated troponin levels and positive for non-ST elevation myocardial infarction, congestive heart failure, low hemoglobin and hematocrit and hyperkalemia. 1. Acute renal failure on chronic kidney disease secondary to acute myocardial infarction. 2. Anemia secondary to renal failure, status post transfusion of 1 unit of packed red blood cells. Hemoglobin and hematocrit is stable after transfusion. 3. Hyperkalemia secondary to renal failure. 4. Cardiomyopathy. 5. Congestive heart failure. Lungs are clear now. PLAN: The patient is off Lasix. Continue hydrochlorothiazide. Add Nephrocaps one tablet p.o. daily. Follow up labs. I agree with the Kayexalate x1 dose and also considered low sodium, low potassium diet. We will follow with you. Thank you for allowing me to participate in your patient's care. Discussed with the patient's family at bedside. The patient does not want hemodialysis at the time and the patient's family respects her wishes. We will continue to monitor and no dialysis at this time. Follow up with Cardiology for further management and medical . Oneil Ron MD
[2018-01-15 06:30] LABS: BASO % 0.5 % (0.0-2.0); EOS % 17.2 % (0.0-4.0); HEMOGLOBIN 10.9 g/dL (11.0-16.0); LYMPH # 1.8 K/uL (1.0-4.3); LYMPH % 29.3 % (20.0-40.0); MEAN CELL VOLUME 82.3 fL (81.0-99.0); MEAN CORPUSCULAR HEMOGLOBIN 27.3 pg (27.0-31.0); MEAN CORPUSCULAR HGB CONC 33.1 g/dL (33.0-37.0); MEAN PLATELET VOLUME 9.7 fL (7.2-11.7); MONO # 0.6 K/uL (0.0-0.8); MONO % 9.7 % (0.0-10.0); NEUT # 2.6 K/uL (1.8-7.0); NEUT % 43.3 % (50.0-75.0); NRBC % 0.4 % (0.0-2.0); RBC 3.99 Mil/uL (3.80-5.20); RED CELL DISTRIBUTION WIDTH 16.1 % (11.5-14.5); WHITE BLOOD COUNT 6.1 K/uL (4.8-10.8)
[2018-01-15 06:34] LABS: PROTHROMBIN TIME 11.1 SECONDS (9.7-12.2)
[2018-01-15 06:37] LABS: ALB/GLOB RATIO 1.2 (1.0-2.1); ALBUMIN 4.2 g/dL (3.5-5.0); CALCIUM 9.3 mg/dl (8.6-10.4)
[2018-01-15] MEDS: Heparin25000 units/250ml 1/2NS 25,000 UNITS/250 ML BAG IV PRN (07:30)
[2018-01-15] MEDS: Pantoprazole 40 mg EC Tab PO SCH (10:10)
--- NOTE | 2018-01-15 11:31 | CP.PCM.PN ---
Subjective - Date & Time of Evaluation Date of Evaluation: 01/14/18 Time of Evaluation: 11:30 - Subjective Subjective: CONDITION SAME. NO CP. Objective - Vital Signs/Intake and Output Vital Signs (last 24 hours): Temp Pulse Resp BP Pulse Ox 97.8 F 73 17 113/61 97 01/15/18 04:00 01/15/18 04:00 01/15/18 04:00 01/15/18 05:00 01/15/18 04:00 Intake and Output: 01/15/18 01/15/18 06:59 18:59 Intake Total 49.5 250 Output Total 850 Balance -800.5 250 - Medications Medications: Current Medications Aspirin (Aspirin Chewable) 81 mg PO DAILY [facility] Last Admin: 01/15/18 10:10 Dose: 81 mg Carvedilol (Coreg) 3.125 mg PO BID [facility] Last Admin: 01/15/18 10:10 Dose: 3.125 mg Clopidogrel Bisulfate (Plavix) 75 mg PO DAILY [facility] Last Admin: 01/15/18 10:10 Dose: 75 mg Hydrochlorothiazide (Microzide) 12.5 mg PO DAILY [facility] Last Admin: 01/15/18 10:10 Dose: 12.5 mg Heparin Sodium/Sodium Chloride (Heparin 04674 Units/250ml 1/2 Normal Saline) 25 ,000 units in 250 mls @ 5.103 mls/hr IV .Q24H PRN; Protocol; 9 UNITS/KG/HR PRN Reason: ADJUST RATE PER PROTOCOL Last Admin: 01/15/18 07:30 Dose: 8 units/kg/hr, 4.536 mls/hr Pantoprazole Sodium (Protonix Ec Tab) 40 mg PO DAILY [facility] Last Admin: 01/15/18 10:10 Dose: 40 mg Rosuvastatin Calcium (Crestor) 20 mg PO HS [facility] Last Admin: 01/14/18 22:22 Dose: 20 mg - Labs Labs: 01/15/18 06:21 01/15/18 06:20 PT 11.1 SECONDS (9.7-12.2) 01/15/18 06:20 INR 1.0 01/15/18 06:20 APTT 52 SECONDS (21-34) H 01/15/18 06:20 - Constitutional Appears: No Acute Distress, Chronically Ill - Eye Exam Eye Exam: EOMI, Normal appearance, PERRL Pupil Exam: NORMAL ACCOMODATION, PERRL - ENT Exam ENT Exam: Mucous Membranes Moist, Normal Exam - Neck Exam Neck Exam: Full ROM, Normal Inspection. absent: Lymphadenopathy - Respiratory Exam Respiratory Exam: Clear to Ausculation Bilateral, NORMAL BREATHING PATTERN - Cardiovascular Exam Cardiovascular Exam: REGULAR RHYTHM, +S1, +S2. absent: Murmur - GI/Abdominal Exam GI & Abdominal Exam: Soft, Normal Bowel Sounds. absent: Tenderness - Extremities Exam Extremities Exam: Full ROM, Normal Capillary Refill, Normal Inspection. absent : Joint Swelling, Pedal Edema - Back Exam Back Exam: NORMAL INSPECTION Assessment and Plan - Assessment and Plan (Free Text) Assessment: IL. CAD. Plan: CT PRESENT TREATMENT.
--- NOTE | 2018-01-15 11:34 | CP.PCM.PN ---
Subjective - Date & Time of Evaluation Date of Evaluation: 01/15/18 Time of Evaluation: 11:32 - Subjective Subjective: NOT IN DISTRESS. NO CP. Objective - Vital Signs/Intake and Output Vital Signs (last 24 hours): Temp Pulse Resp BP Pulse Ox 97.8 F 73 17 113/61 97 01/15/18 04:00 01/15/18 04:00 01/15/18 04:00 01/15/18 05:00 01/15/18 04:00 Intake and Output: 01/15/18 01/15/18 06:59 18:59 Intake Total 49.5 250 Output Total 850 Balance -800.5 250 - Medications Medications: Current Medications Aspirin (Aspirin Chewable) 81 mg PO DAILY [facility] Last Admin: 01/15/18 10:10 Dose: 81 mg Carvedilol (Coreg) 3.125 mg PO BID [facility] Last Admin: 01/15/18 10:10 Dose: 3.125 mg Clopidogrel Bisulfate (Plavix) 75 mg PO DAILY [facility] Last Admin: 01/15/18 10:10 Dose: 75 mg Hydrochlorothiazide (Microzide) 12.5 mg PO DAILY [facility] Last Admin: 01/15/18 10:10 Dose: 12.5 mg Heparin Sodium/Sodium Chloride (Heparin 00135 Units/250ml 1/2 Normal Saline) 25 ,000 units in 250 mls @ 5.103 mls/hr IV .Q24H PRN; Protocol; 9 UNITS/KG/HR PRN Reason: ADJUST RATE PER PROTOCOL Last Admin: 01/15/18 07:30 Dose: 8 units/kg/hr, 4.536 mls/hr Pantoprazole Sodium (Protonix Ec Tab) 40 mg PO DAILY [facility] Last Admin: 01/15/18 10:10 Dose: 40 mg Rosuvastatin Calcium (Crestor) 20 mg PO HS [facility] Last Admin: 01/14/18 22:22 Dose: 20 mg - Labs Labs: 01/15/18 06:21 01/15/18 06:20 PT 11.1 SECONDS (9.7-12.2) 01/15/18 06:20 INR 1.0 01/15/18 06:20 APTT 52 SECONDS (21-34) H 01/15/18 06:20 - Constitutional Appears: No Acute Distress, Chronically Ill - Head Exam Head Exam: ATRAUMATIC, NORMAL INSPECTION, NORMOCEPHALIC - Eye Exam Eye Exam: EOMI, Normal appearance, PERRL Pupil Exam: NORMAL ACCOMODATION, PERRL - ENT Exam ENT Exam: Mucous Membranes Moist, Normal Exam - Neck Exam Neck Exam: Full ROM, Normal Inspection. absent: Lymphadenopathy - Respiratory Exam Respiratory Exam: Clear to Ausculation Bilateral, NORMAL BREATHING PATTERN - Cardiovascular Exam Cardiovascular Exam: REGULAR RHYTHM, +S1, +S2. absent: Murmur - GI/Abdominal Exam GI & Abdominal Exam: Soft, Normal Bowel Sounds. absent: Tenderness - Extremities Exam Extremities Exam: Full ROM, Normal Capillary Refill, Normal Inspection. absent : Joint Swelling, Pedal Edema - Back Exam Back Exam: NORMAL INSPECTION - Neurological Exam Neurological Exam: Alert, Awake, CN II-XII Intact, Normal Gait, Oriented x3 Assessment and Plan - Assessment and Plan (Free Text) Assessment: ND. Plan: DNR, DNI. PER DR. HICKS. RENAL FUNCTION DETERIORATING.
--- NOTE | 2018-01-15 12:07 | CP.PCM.PN ---
Subjective - Date & Time of Evaluation Date of Evaluation: 01/15/18 Time of Evaluation: 12:03 - Subjective Subjective: No chest pain bit some SOB. Sitting in bed. Objective - Vital Signs/Intake and Output Vital Signs (last 24 hours): Temp Pulse Resp BP Pulse Ox 97.8 F 73 17 113/61 97 01/15/18 04:00 01/15/18 04:00 01/15/18 04:00 01/15/18 05:00 01/15/18 04:00 Intake and Output: 01/15/18 01/15/18 06:59 18:59 Intake Total 49.5 250 Output Total 850 Balance -800.5 250 - Medications Medications: Current Medications Aspirin (Aspirin Chewable) 81 mg PO DAILY [facility] Last Admin: 01/15/18 10:10 Dose: 81 mg Carvedilol (Coreg) 3.125 mg PO BID [facility] Last Admin: 01/15/18 10:10 Dose: 3.125 mg Clopidogrel Bisulfate (Plavix) 75 mg PO DAILY [facility] Last Admin: 01/15/18 10:10 Dose: 75 mg Hydrochlorothiazide (Microzide) 12.5 mg PO DAILY [facility] Last Admin: 01/15/18 10:10 Dose: 12.5 mg Heparin Sodium/Sodium Chloride (Heparin 91334 Units/250ml 1/2 Normal Saline) 25 ,000 units in 250 mls @ 5.103 mls/hr IV .Q24H PRN; Protocol; 9 UNITS/KG/HR PRN Reason: ADJUST RATE PER PROTOCOL Last Admin: 01/15/18 07:30 Dose: 8 units/kg/hr, 4.536 mls/hr Pantoprazole Sodium (Protonix Ec Tab) 40 mg PO DAILY [facility] Last Admin: 01/15/18 10:10 Dose: 40 mg Rosuvastatin Calcium (Crestor) 20 mg PO HS [facility] Last Admin: 01/14/18 22:22 Dose: 20 mg - Labs Labs: 01/15/18 06:21 01/15/18 06:20 PT 11.1 SECONDS (9.7-12.2) 01/15/18 06:20 INR 1.0 01/15/18 06:20 APTT 52 SECONDS (21-34) H 01/15/18 06:20 - Head Exam Head Exam: NORMOCEPHALIC - Neck Exam Neck Exam: Normal Inspection - Respiratory Exam Respiratory Exam: NORMAL BREATHING PATTERN - Cardiovascular Exam Cardiovascular Exam: REGULAR RHYTHM - Extremities Exam Extremities Exam: Normal Inspection - Neurological Exam Neurological Exam: Alert, Oriented x3 Assessment and Plan (1) Acute non-ST segment elevation myocardial infarction Assessment & Plan: Satble, Given her comorboditied and code status. Medical management. DAPT with risk factor modification. Status: Acute (2) Chronic congestive heart failure Assessment & Plan: LV systolic dysfunction, since she i snot a candidate for ACID no need for MUGA or CATH. Medical management. Fluid restriction, nephrology follow-up. Status: Acute (3) CAD (coronary artery disease) Status: Acute (4) CRI (chronic renal insufficiency) Status: Acute
--- NOTE | 2018-01-15 12:38 | CP.CCUPN ---
<Deborah Ryan - Last Filed: 01/15/18 12:35> CCU Subjective - Physician Review Subjective (Free Text): 01/12/18 14:24 Pt seen and examined at bedside. No acute events overnight. Patient was sitting comfortably in the chair in the am. Patient denied having any CP, SOB, abd pain, N/v/D/C, F/C. Pt was complaining of nonproductive coughing. Currently on NC 2.5 L. 01/15/18 12:35 Pt seen and examined at bedside this morning. No acute events overnight. Patient was resting comfortably. Denied having any chest pain, shortness of breath, coughing, fevers chills. Critical Care Time Spent (in minutes): 45 CCU Objective - Vital Signs / Intake & Output Intake and Output (Last 8hrs): Intake & Output 01/14/18 01/15/18 01/15/18 22:59 06:59 14:59 Intake Total 635.0 31.5 250 Output Total 450 600 Balance 185.0 -568.5 250 Intake: IV 199 250 Intake, IV Amount 36.0 31.5 Right Forearm 36.0 31.5 Oral 400 Output: Urine 450 600 Urine, Voided 450 600 Other: # Voids Urine, Voided 1 # Bowel Movements 1 - Physical Exam Head: Positive for: Atraumatic, Normocephalic Mouth: Positive for: Moist Mucous Membranes Respiratory/Chest: Positive for: Clear to Auscultation. Negative for: Respiratory Distress, Accessory Muscle Use, Wheezes, Rales, Rhonchi Cardiovascular: Positive for: Regular Rate and Rhythm, Normal S1, S2. Negative for: Murmurs, Rub, Gallop Abdomen: Positive for: Normal Bowel Sounds. Negative for: Tenderness, Distention, Peritoneal Signs, Rebound, Guarding Lower Extremity: Negative for: Edema, CALF TENDERNESS, Tenderness Neurological: Positive for: GCS=15, Speech Normal Skin: Positive for: Warm, Dry, Normal Color. Negative for: Rashes Psychiatric: Positive for: Alert, Oriented x 3, Normal Insight, Normal Concentration - Medications Active Medications: Active Medications Generic Name Dose Route Start Last Admin Trade Name Freq PRN Reason Stop Dose Admin Aspirin 81 mg 01/11/18 10:00 01/15/18 10:10 Aspirin Chewable PO 81 mg DAILY [facility] Administration Carvedilol 3.125 mg 01/11/18 10:00 01/15/18 10:10 Coreg PO 3.125 mg BID [facility] Administration Clopidogrel Bisulfate 75 mg 01/11/18 10:00 01/15/18 10:10 Plavix PO 75 mg DAILY [facility] Administration Heparin Sodium (Porcine) 5,000 units 01/15/18 14:00 Heparin IV Q12 [facility] Hydrochlorothiazide 12.5 mg 01/14/18 10:00 01/15/18 10:10 Microzide PO 12.5 mg DAILY [facility] Administration Pantoprazole Sodium 40 mg 01/11/18 10:00 01/15/18 10:10 Protonix Ec Tab PO 40 mg DAILY [facility] Administration Rosuvastatin Calcium 20 mg 01/11/18 22:00 01/14/18 22:22 Crestor PO 20 mg HS [facility]A Administration - Patient Studies Lab Studies: Lab Studies 01/15/18 01/15/18 01/15/18 Range/Units 06:21 06:20 06:20 WBC 6.1 (4.8-10.8) K/uL RBC 3.99 (3.80-5.20) Mil/uL Hgb 10.9 L (11.0-16.0) g/dL Hct 32.8 L (34.0-47.0) % MCV 82.3 (81.0-99.0) fL MCH 27.3 (27.0-31.0) pg MCHC 33.1 (33.0-37.0) g/dL RDW 16.1 H (11.5-14.5) % Plt Count 159 (130-400) K/uL MPV 9.7 (7.2-11.7) fL Neut % (Auto) 43.3 L (50.0-75.0) % Lymph % (Auto) 29.3 (20.0-40.0) % [place] % (Auto) 9.7 (0.0-10.0) % Eos % (Auto) 17.2 H (0.0-4.0) % Baso % (Auto) 0.5 (0.0-2.0) % Neut # (Auto) 2.6 (1.8-7.0) K/uL Lymph # (Auto) 1.8 (1.0-4.3) K/uL [place] # (Auto) 0.6 (0.0-0.8) K/uL Eos # (Auto) 1.0 H (0.0-0.7) K/uL Baso # (Auto) 0.0 (0.0-0.2) K/uL PT 11.1 (9.7-12.2) SECONDS INR 1.0 APTT 52 H (21-34) SECONDS Sodium 140 (132-148) mmol/L Potassium 5.3 H (3.6-5.2) mmol/L Chloride 104 (98-107) mmol/L Carbon Dioxide 23 (22-30) mmol/L Anion Gap 19 (10-20) BUN 51 H (7-17) mg/dL Creatinine 3.2 H (0.7-1.2) mg/dL Est GFR ( Amer) 17 Est GFR (Non-Af Amer) 14 Random Glucose 101 (65-105) mg/dL Calcium 9.3 (8.6-10.4) mg/dl Phosphorus 5.2 H (2.5-4.5) mg/dL Magnesium 1.7 (1.6-2.3) mg/dL Total Bilirubin 0.6 (0.2-1.3) mg/dL AST 40 H (14-36) U/L ALT 48 (9-52) U/L Alkaline Phosphatase 78 (38-126) U/L Total Protein 7.7 (6.3-8.3) g/dL Albumin 4.2 (3.5-5.0) g/dL Globulin 3.5 (2.2-3.9) gm/dL Albumin/Globulin Ratio 1.2 (1.0-2.1) Stool Occult Blood (NEGATIVE) 01/14/18 Range/Units 17:46 WBC (4.8-10.8) K/uL RBC (3.80-5.20) Mil/uL Hgb (11.0-16.0) g/dL Hct (34.0-47.0) % MCV (81.0-99.0) fL MCH (27.0-31.0) pg MCHC (33.0-37.0) g/dL RDW (11.5-14.5) % Plt Count (130-400) K/uL MPV (7.2-11.7) fL Neut % (Auto) (50.0-75.0) % Lymph % (Auto) (20.0-40.0) % [place] % (Auto) (0.0-10.0) % Eos % (Auto) (0.0-4.0) % Baso % (Auto) (0.0-2.0) % Neut # (Auto) (1.8-7.0) K/uL Lymph # (Auto) (1.0-4.3) K/uL [place] # (Auto) (0.0-0.8) K/uL Eos # (Auto) (0.0-0.7) K/uL Baso # (Auto) (0.0-0.2) K/uL PT (9.7-12.2) SECONDS INR APTT (21-34) SECONDS Sodium (132-148) mmol/L Potassium (3.6-5.2) mmol/L Chloride (98-107) mmol/L Carbon Dioxide (22-30) mmol/L Anion Gap (10-20) BUN (7-17) mg/dL Creatinine (0.7-1.2) mg/dL Est GFR ( Amer) Est GFR (Non-Af Amer) Random Glucose (65-105) mg/dL Calcium (8.6-10.4) mg/dl Phosphorus (2.5-4.5) mg/dL Magnesium (1.6-2.3) mg/dL Total Bilirubin (0.2-1.3) mg/dL AST (14-36) U/L ALT (9-52) U/L Alkaline Phosphatase (38-126) U/L Total Protein (6.3-8.3) g/dL Albumin (3.5-5.0) g/dL Globulin (2.2-3.9) gm/dL Albumin/Globulin Ratio (1.0-2.1) Stool Occult Blood Negative (NEGATIVE) Laboratory Results - last 24 hr 01/14/18 01/15/18 01/15/18 17:46 06:20 06:20 WBC RBC Hgb Hct MCV MCH MCHC RDW Plt Count MPV Neut % (Auto) Lymph % (Auto) [place] % (Auto) Eos % (Auto) Baso % (Auto) Neut # (Auto) Lymph # (Auto) [place] # (Auto) Eos # (Auto) Baso # (Auto) PT 11.1 INR 1.0 APTT 52 H Sodium 140 Potassium 5.3 H Chloride 104 Carbon Dioxide 23 Anion Gap 19 BUN 51 H Creatinine 3.2 H Est GFR ( Amer) 17 Est GFR (Non-Af Amer) 14 Random Glucose 101 Calcium 9.3 Phosphorus 5.2 H Magnesium 1.7 Total Bilirubin 0.6 AST 40 H ALT 48 Alkaline Phosphatase 78 Total Protein 7.7 Albumin 4.2 Globulin 3.5 Albumin/Globulin Ratio 1.2 Stool Occult Blood Negative 01/15/18 06:21 WBC 6.1 RBC 3.99 Hgb 10.9 L Hct 32.8 L MCV 82.3 MCH 27.3 MCHC 33.1 RDW 16.1 H Plt Count 159 MPV 9.7 Neut % (Auto) 43.3 L Lymph % (Auto) 29.3 [place] % (Auto) 9.7 Eos % (Auto) 17.2 H Baso % (Auto) 0.5 Neut # (Auto) 2.6 Lymph # (Auto) 1.8 [place] # (Auto) 0.6 Eos # (Auto) 1.0 H Baso # (Auto) 0.0 PT INR APTT Sodium Potassium Chloride Carbon Dioxide Anion Gap BUN Creatinine Est GFR ( Amer) Est GFR (Non-Af Amer) Random Glucose Calcium Phosphorus Magnesium Total Bilirubin AST ALT Alkaline Phosphatase Total Protein Albumin Globulin Albumin/Globulin Ratio Stool Occult Blood Review of Systems - EENT Eyes: UNREMARKABLE Nose/Mouth/Throat: UNREMARKABLE - Cardiovascular Cardiovascular: absent: Chest Pain, Dyspnea, Pedal Edema - Respiratory Respiratory: absent: Cough, Dyspnea, Wheezing - Gastrointestinal Gastrointestinal: absent: Abdominal Pain, Constipation, Diarrhea, Nausea, Vomiting - Musculoskeletal Musculoskeletal: UNREMARKABLE - Psychiatric Psychiatric: absent: Anxiety, Depression Critical Care Progress Note - Extremities/Vascular Does the Patient have a Central Venous Catheter?: No Does the Patient need a Central Venous Catheter?: No Does the Patient have a Victoria Catheter?: No Does the Patient need a Victoria Catheter?: No - Prophylaxis GI Prophylaxis GI: PPI - Nutrition Nutrition: Nutrition Category Date Time Status Renal Diet [DIET] Diets 01/15/18 Lunch Active Assessment/Plan - Assessment and Plan (Free Text) Assessment: 82 year old female with past medical history of CAd s/p bypass, HTN, CKD, CVA is admitted to hospital for NSTEMI, pulmonary edema. Neuro: - A&Ox 3. Pleasantly conversing without difficulty. Stable Cardio: Hx of CAD s/p bypass in 05/2017 Echo done on 10/2017 showed LV EF of 20% with severe LV dysfunction. Ant and apical hypokinesis. Small pericardial effusion. Will repeat Echo A. NSTEMI - Continue apsirin, plavix and coreg - currently on heparin drip - Cardio, Dr. Bravo is consulted. Per cardio, will continue medical management for NSTEMI. No plan for cardiac cath A. Heart failure with decrease EF - Pt presented with pulmonary edema likely from HF - Pt unable to receive ACEI/ARB therapy due to CKD. She is unable to receive spironolactone due to kyperkalemia of 6.1 this am - Currently on HCTZ 12.5 mg po qd per nephro recs. Pulmonary: A. Pulmonary edema - CXR on admission showed mild pulmn venous congestive changes and possible small B/L effusions - NC prn GI: - heart healthy diet A. Transaminitis - Resolving - Last hepatitis panel in 10/2017 was negative - Will continue to monitor : - Stable Renal: A. CKD stage IV - monitor kidney function - Nephor, Dr. Miller is consulted. Patient and family do not want dialysis at this point Heme: - Currently on heparin drip. Will continue to monitor PTT; titrate accordingly A. Anemia - s/p transfusion. - Hgb/Hct are stable - Negative stool occult Prophylaxis - Heparin - SCDs - protonix Patient stable to be transferred out of ICU Keo Priest - Date & Time Date: 01/15/18 Time: 12:44 <Susan Priest - Last Filed: 01/16/18 20:48> CCU Objective - Vital Signs / Intake & Output Vital Signs (Last 4 hours): Vital Signs Temp Pulse Resp BP Pulse Ox 01/16/18 15:00 98.1 F 72 20 142/72 97 Intake and Output (Last 8hrs): Intake & Output 01/16/18 01/16/18 01/16/18 06:59 14:59 22:59 Intake Total 390 Output Total 1 Balance 389 Intake: Oral 390 Output: Urine/Stool Mix 1 Other: # Voids Urine, Voided 4 - Medications Active Medications: Active Medications Generic Name Dose Route Start Last Admin Trade Name Freq PRN Reason Stop Dose Admin Aspirin 81 mg 01/11/18 10:00 01/16/18 09:58 Aspirin Chewable PO 81 mg DAILY [facility] Administration Carvedilol 3.125 mg 01/11/18 10:00 01/16/18 09:58 Coreg PO 3.125 mg BID [facility] Administration Clopidogrel Bisulfate 75 mg 01/11/18 10:00 01/16/18 09:59 Plavix PO 75 mg DAILY [facility] Administration Ferrous Gluconate 324 mg 01/16/18 14:00 01/16/18 14:01 Fergon PO 324 mg TID [facility] Administration Heparin Sodium (Porcine) 5,000 units 01/15/18 22:00 01/16/18 09:58 Heparin SC 5,000 units Q12 [facility] Administration Hydrochlorothiazide 12.5 mg 01/14/18 10:00 01/16/18 09:58 Microzide PO 12.5 mg DAILY [facility] Administration Pantoprazole Sodium 40 mg 01/11/18 10:00 01/16/18 09:58 Protonix Ec Tab PO 40 mg DAILY [facility] Administration Rosuvastatin Calcium 10 mg 01/16/18 22:00 Crestor PO HS [facility] Sodium Polystyrene Sulfonate 15 gm 01/15/18 20:00 01/15/18 21:26 Kayexalate Susp PO 15 gm TTS [facility] Administration Vitamin B Complex/Vit C/Folic Acid 1 tab 01/17/18 08:00 Nephro-Orquidea PO 0800 [facility] Critical Care Progress Note - Nutrition Nutrition: Nutrition Category Date Time Status Renal Diet [DIET] Diets 01/15/18 Lunch Active Assessment/Plan - Assessment and Plan (Free Text) Assessment: Patient seen and examined at bedside. Patient with h/o CAD, severe systolic heart failure. Patient remains hemodynamically stable. -Patient refusing HD currently -continue management as per consultants - cardiology and nephrology -Patient remains hemodynamically stable.
--- NOTE | 2018-01-15 15:05 | CP.PCM.PN ---
Subjective - Date & Time of Evaluation Date of Evaluation: 01/15/18 Time of Evaluation: 15:04 - Subjective Subjective: pt is seen and examind, follow up consult is dictated #[id number] refusing hemodialysis add kayexalate (SPS) 15 gm/ 60 ml po 3 x a week Objective - Vital Signs/Intake and Output Vital Signs (last 24 hours): Temp Pulse Resp BP Pulse Ox 97.8 F 72 17 132/68 93 L 01/15/18 04:00 01/15/18 14:00 01/15/18 14:00 01/15/18 14:00 01/15/18 14:00 Intake and Output: 01/15/18 01/15/18 06:59 18:59 Intake Total 49.5 488.5 Output Total 850 800 Balance -800.5 -311.5 - Medications Medications: Current Medications Aspirin (Aspirin Chewable) 81 mg PO DAILY [facility] Last Admin: 01/15/18 10:10 Dose: 81 mg Carvedilol (Coreg) 3.125 mg PO BID [facility] Last Admin: 01/15/18 10:10 Dose: 3.125 mg Clopidogrel Bisulfate (Plavix) 75 mg PO DAILY [facility] Last Admin: 01/15/18 10:10 Dose: 75 mg Heparin Sodium (Porcine) (Heparin) 5,000 units IV Q12 [facility] Hydrochlorothiazide (Microzide) 12.5 mg PO DAILY [facility] Last Admin: 01/15/18 10:10 Dose: 12.5 mg Pantoprazole Sodium (Protonix Ec Tab) 40 mg PO DAILY [facility] Last Admin: 01/15/18 10:10 Dose: 40 mg Rosuvastatin Calcium (Crestor) 20 mg PO HS [facility] Last Admin: 01/14/18 22:22 Dose: 20 mg - Labs Labs: 01/15/18 06:21 01/15/18 06:20 PT 11.1 SECONDS (9.7-12.2) 01/15/18 06:20 INR 1.0 01/15/18 06:20 APTT 52 SECONDS (21-34) H 01/15/18 06:20
--- NOTE | 2018-01-15 16:58 | CP.PCM.PN ---
Subjective - Date & Time of Evaluation Date of Evaluation: 01/15/18 Time of Evaluation: 16:58 - Subjective Subjective: PGY2 Medicine Note for Dr. Quezada Patient seen and examined this afternoon at bedside. Patient was transferred out of ICU earlier today. Patient is feeling well and has no complaints at this time. Patient is very eager to go home and is requesting to go home today. She has no complaints at this time. Denies fevers, chills, nausea, vomiting, diarrhea, constipation, chest pain, shortness of breath, palpitations, abdominal pain, headaches, vision changes, numbness or tingling. Objective - Vital Signs/Intake and Output Vital Signs (last 24 hours): Temp Pulse Resp BP Pulse Ox 97.8 F 73 19 133/79 89 L 01/15/18 04:00 01/15/18 16:01 01/15/18 16:01 01/15/18 16:00 01/15/18 16:01 Intake and Output: 01/15/18 01/15/18 06:59 18:59 Intake Total 49.5 488.5 Output Total 850 1200 Balance -800.5 -711.5 - Medications Medications: Current Medications Aspirin (Aspirin Chewable) 81 mg PO DAILY [facility] Last Admin: 01/15/18 10:10 Dose: 81 mg Carvedilol (Coreg) 3.125 mg PO BID [facility] Last Admin: 01/15/18 10:10 Dose: 3.125 mg Clopidogrel Bisulfate (Plavix) 75 mg PO DAILY [facility] Last Admin: 01/15/18 10:10 Dose: 75 mg Heparin Sodium (Porcine) (Heparin) 5,000 units SC Q12 [facility] Hydrochlorothiazide (Microzide) 12.5 mg PO DAILY [facility] Last Admin: 01/15/18 10:10 Dose: 12.5 mg Pantoprazole Sodium (Protonix Ec Tab) 40 mg PO DAILY [facility] Last Admin: 01/15/18 10:10 Dose: 40 mg Rosuvastatin Calcium (Crestor) 20 mg PO HS [facility] Last Admin: 01/14/18 22:22 Dose: 20 mg Sodium Polystyrene Sulfonate (Kayexalate Susp) 15 gm PO TTS [facility] - Labs Labs: 01/15/18 06:21 01/15/18 06:20 PT 11.1 SECONDS (9.7-12.2) 01/15/18 06:20 INR 1.0 01/15/18 06:20 APTT 52 SECONDS (21-34) H 01/15/18 06:20 - Constitutional Appears: No Acute Distress - Head Exam Head Exam: ATRAUMATIC, NORMOCEPHALIC - Eye Exam Eye Exam: Normal appearance - ENT Exam ENT Exam: Mucous Membranes Moist - Neck Exam Neck Exam: absent: Lymphadenopathy - Respiratory Exam Respiratory Exam: Clear to Ausculation Bilateral, NORMAL BREATHING PATTERN. absent: Respiratory Distress - Cardiovascular Exam Cardiovascular Exam: REGULAR RHYTHM, +S1, +S2 - GI/Abdominal Exam GI & Abdominal Exam: Soft. absent: Distended, Firm, Guarding, Rigid, Tenderness - Extremities Exam Extremities Exam: absent: Calf Tenderness, Pedal Edema - Neurological Exam Neurological Exam: Alert, Awake, CN II-XII Intact, Oriented x3 - Psychiatric Exam Psychiatric exam: Normal Affect, Normal Mood - Skin Skin Exam: Dry, Warm Assessment and Plan - Assessment and Plan (Free Text) Plan: NSTEMI - Cardio, Dr. Bravo is consulted. * Per cardio, will continue medical management for NSTEMI. * No plan for cardiac cath due to CKD and patient refusal for dialysis - Continue apsirin, plavix and coreg Sysoltic Heart failure with decrease EF - ECHO 01/12: EF ~20%, no AR, midl TR, mild PVR, mod-large anterior pericardial effusion - Pt presented with pulmonary edema likely from HF - Pt unable to receive ACEI/ARB therapy due to CKD. She is unable to receive spironolactone due to episodes of kyperkalemia. - Currently on HCTZ 12.5 mg po qd per nephro recs. - Crestor 20mg PO HS - Carvedilol 3.125mg PO BID CKD Stage 4 - NephDr. Angela roche is consulted. - Patient is currently refusing dialysis. - Monitor kidney function Pulmonary edema - Breathing much improved, saturating well on RA - CXR on admission showed mild pulmn venous congestive changes and possible small B/L effusions - NC prn Anemia - s/p transfusion. - Hgb/Hct are stable - Negative stool occult Prophylaxis - Heparin - SCDs - protonix - PT eval: Home with services Dispo: Patient is cleared for discharge but after discussion with daughter, Pratibha [phone], the family is not able to filler picker/care for patient today. Family is agreeable to discharge tomorrow as this gives them time to plan to take patient home safely. Plan to discharge tomorrow. Transfer to Med/ Surg. Case discussed with and all management per Dr. Pilar Dumont Rossi PGY2
[2018-01-15] MEDS ORDERED: Sod Polystyrene Sulf 15 gm/60 ml Susp PO SCH (20:00)
[2018-01-16 01:03] VITALS: RESP 20
--- NOTE | 2018-01-16 03:42 | PN ---
DATE: 01/15/2018 FOLLOWUP RENAL CONSULTATION LOCATION: The patient is located in ICU, bed 12. REQUESTED BY: Chasity Quezada MD REASON FOR FOLLOWUP: Chronic kidney disease stage V, refusing hemodialysis, acute PA, CHF. HISTORY OF PRESENT ILLNESS: Mrs. Priest is an 82-year-old elderly female with a past medical history significant for hypertension, hyperlipidemia, coronary artery disease, status post cardiac cath and stent placement about 8 months ago, cardiomyopathy, ejection fraction of 20%, chronic kidney disease who was admitted with chief complaints of sudden onset of chest discomfort similar to the one she had about 8 months ago with acute PA and shortness of breath, and the patient was found to have elevated troponin levels 9 and hyperkalemia and worsening renal function. The patient is being treated for NSTEMI and also CHF. The patient is out of bed to chair, not in acute distress. No chest pain or palpitation. No fever. No cough. No abdominal pain. No nausea, vomiting, diarrhea today. PHYSICAL EXAMINATION: VITAL SIGNS: Her vital signs as follows, blood pressure 117/50, pulse 77, respirations 24, temperature is 98.9, and saturation is 97%. Height 5 feet, weight is 97 pounds. GENERAL: Mrs. Priest is an [id number] female, thin-built, not in distress. HEENT: Pupils normal and reactive to light and accommodation. Conjunctivae pink. Sclerae anicteric. Tongue is moist. Trachea is midline. LUNGS: Symmetric on both sides. Bilateral breath sounds present. Clear to auscultation. CVS: Horner at the fifth intercostal space, midclavicular line. S1, S2 audible. No murmur or gallops. ABDOMEN: Normal in appearance, soft, tympanic. No guarding. No rigidity. No hepatosplenomegaly. LADIES SUIT OPERATOR: The patient is alert, awake, and oriented times two to three. Sensory and motor system is within normal limits. Cranial nerves II through XII grossly intact. EXTREMITIES: No cyanosis. No clubbing. No edema. MEDICATIONS: Current medications include as follows: Aspirin 81 mg p.o. daily; Coreg 3.125 mg b.i.d.; Crestor 20 mg p.o. at bedtime; subcu heparin 5000 every 12 hours; Kayexalate 15 gm p.o. three times a week, Friday, ; hydrochlorothiazide 12.5 mg p.o. daily; Plavix 75 mg daily; Protonix 40 mg p.o. daily. LABORATORY DATA: Include as follows, as of 01/15/2018, WBC 6.1, hemoglobin 10.9, hematocrit is 32.8. Platelets 159, PT 11.1 and PTT of 52. Sodium 140, potassium 5.3, chloride 104, CO2 of 23, and BUN 51, creatinine 3.2, glucose 101, calcium 9.3, phosphorus 5.2, magnesium 1.7. Total bili 0.6, AST 40, ALT 48, alkaline phosphatase 78, total protein 7.7, albumin is 4.2, and stool for occult blood is negative. IMPRESSION: In summary, Mrs. Priest is an [id number] female with history of hypertension, hyperlipidemia, coronary artery disease, status post stent, congestive heart failure who was admitted with shortness of breath and chest pain, elevated troponin levels and hyperkalemia. 1. 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 2. Hyperkalemia secondary to renal failure. 3. Non ST elevation myocardial infarction. 4. Congestive heart failure. 5. Hypertension. Blood pressure is stable. PLAN: We will start Kayexalate 15 gm times a week, first dose today; also low sodium, low potassium diet. The patient's family is refusing hemodialysis at this time. Continue medical management as per the chart picker; and continue her current medication aspirin, Coreg, Crestor, subcu heparin, hydrochlorothiazide, Plavix, and Protonix. We will follow with you. Thank you for allowing me to participate in your patient's care. If patient's family agrees, consider PermCath. At this time, the patient is refusing dialysis. Oneil Ron MD
--- NOTE | 2018-01-16 07:42 | CP.PCM.PN ---
Subjective - Date & Time of Evaluation Date of Evaluation: 01/16/18 Time of Evaluation: 07:41 - Subjective Subjective: Internal Medicine Progress Note - Dr Quezada Service Patient seen and examined at bedside. Per nursing no acute events overnight. Patient offering no complaints at this time. Resting comfortably. Plan for discharge home this afternoon. Objective - Vital Signs/Intake and Output Vital Signs (last 24 hours): Temp Pulse Resp BP Pulse Ox 97.2 F L 71 20 117/50 L 98 01/16/18 00:00 01/16/18 00:00 01/16/18 00:00 01/15/18 22:30 01/16/18 00:00 Intake and Output: 01/16/18 01/16/18 06:59 18:59 Intake Total 200 Output Total 150 Balance 50 - Medications Medications: Current Medications Aspirin (Aspirin Chewable) 81 mg PO DAILY [facility] Last Admin: 01/15/18 10:10 Dose: 81 mg Carvedilol (Coreg) 3.125 mg PO BID [facility] Last Admin: 01/15/18 17:57 Dose: 3.125 mg Clopidogrel Bisulfate (Plavix) 75 mg PO DAILY [facility] Last Admin: 01/15/18 10:10 Dose: 75 mg Heparin Sodium (Porcine) (Heparin) 5,000 units SC Q12 [facility] Last Admin: 01/15/18 21:27 Dose: 5,000 units Hydrochlorothiazide (Microzide) 12.5 mg PO DAILY [facility] Last Admin: 01/15/18 10:10 Dose: 12.5 mg Pantoprazole Sodium (Protonix Ec Tab) 40 mg PO DAILY [facility] Last Admin: 01/15/18 10:10 Dose: 40 mg Rosuvastatin Calcium (Crestor) 20 mg PO [facility] Sodium Polystyrene Sulfonate (Kayexalate Susp) 15 gm PO TTS [facility] Last Admin: 01/15/18 21:26 Dose: 15 gm - Labs Labs: 01/15/18 06:21 01/15/18 06:20 PT 11.1 SECONDS (9.7-12.2) 01/15/18 06:20 INR 1.0 01/15/18 06:20 APTT 52 SECONDS (21-34) H 01/15/18 06:20 - Additional Findings Additional findings: - Constitutional Appears: No Acute Distress - Head Exam Head Exam: ATRAUMATIC, NORMOCEPHALIC - Eye Exam Eye Exam: Normal appearance - ENT Exam ENT Exam: Mucous Membranes Moist - Neck Exam Neck Exam: absent: Lymphadenopathy - Respiratory Exam Respiratory Exam: Clear to Ausculation Bilateral, NORMAL BREATHING PATTERN. absent: Respiratory Distress - Cardiovascular Exam Cardiovascular Exam: REGULAR RHYTHM, +S1, +S2 - GI/Abdominal Exam GI & Abdominal Exam: Soft. absent: Distended, Firm, Guarding, Rigid, Tenderness - Extremities Exam Extremities Exam: absent: Calf Tenderness, Pedal Edema - Neurological Exam Neurological Exam: Alert, Awake, CN II-XII Intact, Oriented x3 - Psychiatric Exam Psychiatric exam: Normal Affect, Normal Mood - Skin Skin Exam: Dry, Warm Assessment and Plan - Assessment and Plan (Free Text) Assessment: NSTEMI - Cardio, Dr. Bravo is consulted. - Per cardio, will continue medical management for NSTEMI. - No plan for cardiac cath due to CKD and patient refusal for dialysis - Continue apsirin, plavix and coreg Sysoltic Heart failure with decrease EF - ECHO 01/12: EF ~20%, no AR, midl TR, mild PVR, mod-large anterior pericardial effusion - Pt presented with pulmonary edema likely from HF - Pt unable to receive ACEI/ARB therapy due to CKD. She is unable to receive spironolactone due to episodes of kyperkalemia. - Currently on HCTZ 12.5 mg po qd per nephro recs. - Crestor 20mg PO HS - Carvedilol 3.125mg PO BID CKD Stage 4 - Nephro, Dr. Miller is consulted. - Patient is currently refusing dialysis. - Monitor kidney function Pulmonary edema - Breathing much improved, saturating well on RA - CXR on admission showed mild pulmn venous congestive changes and possible small B/L effusions - NC prn Anemia - s/p transfusion. - Hgb/Hct are stable - Negative stool occult Prophylaxis - Heparin - SCDs - protonix - PT eval: Home with services Dispo: Patient is cleared for discharge home yesterdat but after discussion with daughter, Pratibha [phone], the family was unable to pick the patient up at that time. Will discharge the patient home today. Case discussed with and all management per Dr. Pilar Hernandez DO PGY-1
[2018-01-16 08:26] VITALS: TEMP 98.1
[2018-01-16] MEDS: Pantoprazole 40 mg EC Tab PO SCH (09:58)
--- NOTE | 2018-01-16 12:06 | CP.PCM.PN ---
Subjective - Date & Time of Evaluation Date of Evaluation: 01/16/18 Time of Evaluation: 12:03 - Subjective Subjective: PT COMFORTABLE. NO DISTRESS. VS WNL. DR. HICKS'S EVAL NOTED. NO AICD AT THIS TIME. Objective - Vital Signs/Intake and Output Vital Signs (last 24 hours): Temp Pulse Resp BP Pulse Ox 98.1 F 75 20 147/66 99 01/16/18 08:20 01/16/18 08:20 01/16/18 08:20 01/16/18 08:20 01/16/18 08:20 Intake and Output: 01/16/18 01/16/18 06:59 18:59 Intake Total 200 150 Output Total 150 1 Balance 50 149 - Medications Medications: Current Medications Aspirin (Aspirin Chewable) 81 mg PO DAILY [facility] Last Admin: 01/16/18 09:58 Dose: 81 mg Carvedilol (Coreg) 3.125 mg PO BID [facility] Last Admin: 01/16/18 09:58 Dose: 3.125 mg Clopidogrel Bisulfate (Plavix) 75 mg PO DAILY [facility] Last Admin: 01/16/18 09:59 Dose: 75 mg Ferrous Gluconate (Fergon) 324 mg PO TID [facility] Heparin Sodium (Porcine) (Heparin) 5,000 units SC Q12 [facility] Last Admin: 01/16/18 09:58 Dose: 5,000 units Hydrochlorothiazide (Microzide) 12.5 mg PO DAILY [facility] Last Admin: 01/16/18 09:58 Dose: 12.5 mg Pantoprazole Sodium (Protonix Ec Tab) 40 mg PO DAILY [facility] Last Admin: 01/16/18 09:58 Dose: 40 mg Rosuvastatin Calcium (Crestor) 10 mg PO HS [facility] Sodium Polystyrene Sulfonate (Kayexalate Susp) 15 gm PO TTS [facility] Last Admin: 01/15/18 21:26 Dose: 15 gm Vitamin B Complex/Vit C/Folic Acid (Nephro-Orquidea) 1 tab PO 0800 [facility] - Labs Labs: 01/15/18 06:21 01/15/18 06:20 PT 11.1 SECONDS (9.7-12.2) 01/15/18 06:20 INR 1.0 01/15/18 06:20 APTT 52 SECONDS (21-34) H 01/15/18 06:20 - Constitutional Appears: No Acute Distress, Chronically Ill - Eye Exam Eye Exam: EOMI, Normal appearance, PERRL Pupil Exam: NORMAL ACCOMODATION, PERRL - ENT Exam ENT Exam: Mucous Membranes Moist, Normal Exam - Neck Exam Neck Exam: Full ROM, Normal Inspection. absent: Lymphadenopathy - Respiratory Exam Respiratory Exam: Clear to Ausculation Bilateral, NORMAL BREATHING PATTERN - Cardiovascular Exam Cardiovascular Exam: REGULAR RHYTHM, +S1, +S2. absent: Murmur - GI/Abdominal Exam GI & Abdominal Exam: Soft, Normal Bowel Sounds. absent: Tenderness - Extremities Exam Extremities Exam: Full ROM, Normal Capillary Refill, Normal Inspection. absent : Joint Swelling, Pedal Edema - Neurological Exam Neurological Exam: Alert, Awake, CN II-XII Intact, Normal Gait, Oriented x3 Assessment and Plan - Assessment and Plan (Free Text) Assessment: NSTMI. CHF. CAD. Plan: FOR DISCHARGE HOME TODAY.
--- NOTE | 2018-01-16 13:04 | CP.PCM.PN ---
Subjective - Date & Time of Evaluation Date of Evaluation: 01/16/18 Time of Evaluation: 12:53 - Subjective Subjective: Nephrology Consultation Note covering for Dr Ron Assessment: Stable NSTEMI, CHF with pericardial effusion Hyperkalemia Hypertensive Chronic Kidney Disease (I12.9) Chronic Kidney Disease (N18.5) Stage 5 with ? mg proteinuria (R80.9) Anemia (D64.9), HTN (I12.9) Plan No emergent need for renal replacement therapy at this time. pt had declined dialysis Hypertension control with meds as ordered. Patient not on ACEI/ARB due to hyperkalemia Monitor Input/Output, daily weights and renal function with basic metabolic panel CHF optimization as per cardiology low K diet added iron and MVI supplements pt started on kayexylate 3 times a week Dose meds/antibiotics for reduced GFR. Avoid fleets enema/magnesium based laxatives. Avoid nephrotoxins/NSAIDs/ iodinated contrast (unless needed emergently) Glycemic control Further work up for as per primary team Thanks for allowing me to participate in care of your patient. Please call if any Qs Dr Willie Akers Office: [phone] Subjective: Noted events overnight. Patients feels okay. Denies chest pain, palpitation, shortness of breath, leg swelling. All other negative Physical Examination: General Appearance: Comfortable, in no acute respiratory distress, co-operative . Vitals reviewed and noted as below Head; Atraumatic, normocephalic ENT: no ulcers no thrush. Tongue is midline. Oropharynx: no rash or ulcers. EYES: Pupils are equal, round and reactive to light accommodation. Eye muscles and extraocular movement intact. Sclera is anicteric. Neck; supple no lymphadenopathy, no thyromegaly or bruit Lungs: Normal respiratory rate/effort. Breath sounds bilateral equal and clear Heart: Normal rate. s1s2 normal. No rub or gallop. Extremities: no edema. No varicose veins Neurological: Patient is alert, awake and oriented to person, place and time. No focal deficit. Strength bilateral appropriate and equal Skin: Warm and dry. Normal turgor. No rash. Palpitation: Normal elasticity for age Abdomen: Abdomen is soft. Bowel sounds +. There is no abdominal tenderness, no guarding/rigidity no organomegaly Psych: normal insight and normal affect/mood MSK: no joint tenderness or swelling. Digits and nails normal, no deformity : kidney or bladder not palpable Labs/imaging reviewed. Past medical history, past surgical history, family history, social history, allergy reviewed and noted as below Family hx: no hx of CKD. Rest non-contributory LVEF 20% with pericardiac effusion TSAT 21% Ferritin 116 Objective - Vital Signs/Intake and Output Vital Signs (last 24 hours): Temp Pulse Resp BP Pulse Ox 98.1 F 75 20 147/66 99 01/16/18 08:20 01/16/18 08:20 01/16/18 08:20 01/16/18 08:20 01/16/18 08:20 Intake and Output: 01/16/18 01/16/18 06:59 18:59 Intake Total 200 150 Output Total 150 1 Balance 50 149 - Medications Medications: Current Medications Aspirin (Aspirin Chewable) 81 mg PO DAILY [facility] Last Admin: 01/16/18 09:58 Dose: 81 mg Carvedilol (Coreg) 3.125 mg PO BID [facility] Last Admin: 01/16/18 09:58 Dose: 3.125 mg Clopidogrel Bisulfate (Plavix) 75 mg PO DAILY [facility] Last Admin: 01/16/18 09:59 Dose: 75 mg Ferrous Gluconate (Fergon) 324 mg PO TID [facility] Heparin Sodium (Porcine) (Heparin) 5,000 units SC Q12 [facility] Last Admin: 01/16/18 09:58 Dose: 5,000 units Hydrochlorothiazide (Microzide) 12.5 mg PO DAILY [facility] Last Admin: 01/16/18 09:58 Dose: 12.5 mg Pantoprazole Sodium (Protonix Ec Tab) 40 mg PO DAILY [facility] Last Admin: 01/16/18 09:58 Dose: 40 mg Rosuvastatin Calcium (Crestor) 10 mg PO HS [facility] Sodium Polystyrene Sulfonate (Kayexalate Susp) 15 gm PO TTS [facility] Last Admin: 01/15/18 21:26 Dose: 15 gm Vitamin B Complex/Vit C/Folic Acid (Nephro-Orquidea) 1 tab PO 0800 [facility] - Labs Labs: 01/15/18 06:21 01/15/18 06:20 PT 11.1 SECONDS (9.7-12.2) 01/15/18 06:20 INR 1.0 01/15/18 06:20 APTT 52 SECONDS (21-34) H 01/15/18 06:20
[2018-01-16 16:11] VITALS: BP 142/72; PULSE 72; O2SAT 97
[2018-01-17] MEDS ORDERED: Multivitamin Vitamin B Complex (Nephro-Vite) Tab PO SCH (08:00)
--- NOTE | 2018-01-20 12:43 | DS ---
Ms. Priest admitted to the hospital with complaint of chest pain and shortness of breath. The patient has coronary artery disease, CHF, renal insufficiency. The patient received ICU therapy, Cardiology Dr. Bravo because of the renal function and family refused cardiac cath. The patient will be discharged and followed up as outpatient. DIAGNOSIS: History of coronary artery disease and renal failure. Chasity Quezada MD
== END 2018-01-16 20:47 | disposition home or self-care (01) | DRG 281 ==
LOC: C.ER 04:00 → C.9I 05:48 → C.3T 01-15 23:58
PROVIDERS: ADMIT Internal Medicine Pulmonary Disease; ATTEND Internal Medicine Pulmonary Disease
DX: I21.4 Non-ST elevation (NSTEMI) myocardial infarction (principal); E87.2 Acidosis; N17.9 Acute kidney failure, unspecified; I43 Cardiomyopathy in diseases classified elsewhere; I50.22 Chronic systolic (congestive) heart failure; I13.0 Hypertensive heart and chronic kidney disease with heart failure and stage 1 through stage 4 chronic kidney disease, or unspecified chronic kidney disease; N18.4 Chronic kidney disease, stage 4 (severe); Z68.1 Body mass index [BMI] 19.9 or less, adult; I25.110 Atherosclerotic heart disease of native coronary artery with unstable angina pectoris; I25.2 Old myocardial infarction; E87.5 Hyperkalemia; E78.5 Hyperlipidemia, unspecified; Z51.5 Encounter for palliative care; Z66 Do not resuscitate; Z79.01 Long term (current) use of anticoagulants; E11.22 Type 2 diabetes mellitus with diabetic chronic kidney disease; Z86.73 Personal history of transient ischemic attack (TIA), and cerebral infarction without residual deficits; Z91.15 Patient's noncompliance with renal dialysis; Z95.1 Presence of aortocoronary bypass graft; Z95.5 Presence of coronary angioplasty implant and graft; D63.1 Anemia in chronic kidney disease; N27.1 Small kidney, bilateral

== ENCOUNTER 2018-02-24 14:19 | Inpatient (IN) | payer MEDICARE, MEDICAID ==
[2018-02-24 14:19] VITALS: BMI 18.5
[2018-02-24] MEDS ORDERED: Albuterol 0.083% Inhal Sol (2.5 mg/3 mL) UD IH STA (15:04)
[2018-02-24 15:21] LABS: PROTHROMBIN TIME 10.7 SECONDS (9.7-12.2)
[2018-02-24] MEDS ORDERED: Albuterol 0.083% Inhal Sol (2.5 mg/3 mL) UD ONE (15:23)
[2018-02-24 15:36] LABS: BASO % 0.2 % (0.0-2.0); EOS # 0.7 K/uL (0.0-0.7); EOS % 11.4 % (0.0-4.0); HEMOGLOBIN 10.4 g/dL (11.0-16.0); LYMPH # 1.5 K/uL (1.0-4.3); LYMPH % 25.5 % (20.0-40.0); MEAN CELL VOLUME 81.6 fL (81.0-99.0); MEAN CORPUSCULAR HEMOGLOBIN 26.8 pg (27.0-31.0); MEAN CORPUSCULAR HGB CONC 32.9 g/dL (33.0-37.0); MEAN PLATELET VOLUME 9.1 fL (7.2-11.7); MONO # 0.5 K/uL (0.0-0.8); MONO % 8.6 % (0.0-10.0); NEUT # 3.3 K/uL (1.8-7.0); NEUT % 54.3 % (50.0-75.0); NRBC % 0.1 % (0.0-2.0); RBC 3.88 Mil/uL (3.80-5.20); RED CELL DISTRIBUTION WIDTH 15.1 % (11.5-14.5)
[2018-02-24 15:45] LABS: ALB/GLOB RATIO 1.1 (1.0-2.1); ALBUMIN 4.4 g/dL (3.5-5.0); CALCIUM 9.3 mg/dl (8.6-10.4)
[2018-02-24 15:47] LABS: TROPONIN I 0.013 ng/mL (0.00-0.120)
--- NOTE | 2018-02-24 16:18 | RAD ---
Date of service: 02/24/2018 PROCEDURE: CHEST RADIOGRAPH, 1 VIEW HISTORY: SOB, cough, syncope COMPARISON: 01/13/2018 FINDINGS: LUNGS: No interval consolidation. Interstitial lung marking prominence less conspicuous. An element of minimal residual chronic interstitial lung disease possible PLEURA: No pneumothorax or pleural fluid seen. Similar minimal biapical pleural thickening right slightly greater than left right apical pleural calcification probable CARDIOVASCULAR: Cardiomegaly in calcified prominent thoracic aorta- both similar. No pulmonary venous congestion. Right peritracheal calcified granuloma similar Probable tortuous brachiocephalic vessels -similar OSSEOUS STRUCTURES: No significant abnormalities. VISUALIZED UPPER ABDOMEN: Normal. OTHER FINDINGS: None. IMPRESSION: No interval pathology noted.
--- NOTE | 2018-02-24 16:47 | C.PDOC ---
Time Seen by Provider: 02/24/18 14:33 Chief Complaint (Nursing): Syncope History Per: Patient, Family Onset/Duration Of Symptoms: Hrs (today) Current Symptoms Are (Timing): Better Number Of Syncopal Episodes: 1 Activity At Onset Of Symptoms: Walking Seizure Or Post-ictal Symptoms: None Fall Associated With With Symptoms: No Injury As Result Of Fall Severity: Moderate Additional History Per: Prior Records - Symptoms Of CVA Recent Head Trauma: No Past Medical History Reviewed: Historical Data, Nursing Documentation, Vital Signs Vital Signs: Last Vital Signs Temp 98.3 F 02/24/18 14:25 Pulse 82 02/24/18 14:25 Resp 20 02/24/18 14:25 BP 150/92 H 02/24/18 14:25 Pulse Ox 96 02/24/18 14:25 - Medical History PMH: CHF, CVA, HTN, Hypercholesterolemia, Hyperlipidemia, Chronic Kidney Disease Family History: States: Unknown Family Hx - Social History Hx Tobacco Use: No Hx Alcohol Use: No Hx Substance Use: No Review Of Systems Except As Marked, All Systems Reviewed And Found Negative. Constitutional: Positive for: Weakness, Malaise. Negative for: Fever Cardiovascular: Negative for: Chest Pain Respiratory: Positive for: Cough. Negative for: Shortness of Breath, Hemoptysis Gastrointestinal: Negative for: Vomiting, Abdominal Pain Musculoskeletal: Negative for: Neck Pain, Back Pain Neurological: Negative for: Weakness, Numbness, Seizures Physical Exam - Physical Exam Appears: No Acute Distress, Chronically Ill Skin: Normal Color, Warm, Dry Head: Atraumatic, Normacephalic Eye(s): bilateral: PERRL, EOMI Neck: Normal ROM, Supple Cardiovascular: Rhythm Regular Respiratory: No Accessory Muscle Use, Rhonchi Gastrointestinal/Abdominal: Soft, No Tenderness Extremity: Normal ROM, No Calf Tenderness Neurological/Psych: Oriented x3, Normal Motor, Normal Sensation ED Course And Treatment - Laboratory Results Result Diagrams: 02/24/18 15:32 02/24/18 15:09 Lab Interpretation: Abnormal Interpretation Of Abnormal: Elevated BUN/Cr. Elevated BNP. ECG: Interpreted By Me, Viewed By Me ECG Rhythm: Sinus Rhythm, Nonspecific Changes Rate From EC O2 Sat by Pulse Oximetry: 96 Pulse Ox Interpretation: Normal - Radiology CXR: Viewed By Me, Read By Radiologist CXR Interpretation: Yes: Cardiomegaly - Physician Consult Information Physician Contacted: Marilin Priest (PMD) Outcome Of Conversation: He wants pt admitted on Dr. Quezada's service who is covering him. Progress - Interventions Interventions:: Observation, Oxygen - Medications Administered Inhaled nebulized: Beta-2 agonist - Data Reviewed Data Reviewed: Lab, Diagnostic imaging, EKG, Old records - Patient Status Patient status: Partially improved - Continuity of Care Discussed patient case with:: Patient, Family-HIPPA compliant, ED Nurse, PMD, Covering for PMD Disposition Discussed With .: Chasity Quezada Comment: He accepted pt on his service. Doctor Will See Patient In The: Hospital Counseled Patient/Family Regarding: Studies Performed, Diagnosis - Disposition Disposition: HOSPITALIZED Disposition Time: 16:51 Condition: GUARDED - Clinical Impression Clinical Impression: Syncope, Uremia, CHF (congestive heart failure)
--- NOTE | 2018-02-25 06:52 | CP.PCM.PN ---
Subjective - Date & Time of Evaluation Date of Evaluation: 02/25/18 Time of Evaluation: 10:31 - Subjective Subjective: 82 year old female with past medical history significant for CVA, HTN, Hyperlipidemia and Chronic Kidney Disease presents with complaints of near syncope. Patient denies any symptoms at this time. Objective - Vital Signs/Intake and Output Vital Signs (last 24 hours): Temp Pulse Resp BP Pulse Ox 98.1 F 70 20 126/75 98 02/24/18 23:10 02/25/18 00:04 02/24/18 23:10 02/24/18 23:10 02/24/18 23:10 - Medications Medications: Current Medications Aspirin (Aspirin Chewable) 81 mg PO DAILY [facility] Carvedilol (Coreg) 3.125 mg PO BID [facility] Last Admin: 02/24/18 21:34 Dose: 3.125 mg Clopidogrel Bisulfate (Plavix) 75 mg PO DAILY [facility] Enoxaparin Sodium (Lovenox) 40 mg SC DAILY [facility] Famotidine (Pepcid) 20 mg PO DAILY [facility] Ferrous Gluconate (Fergon) 324 mg PO TID [facility] Hydrochlorothiazide (Microzide) 12.5 mg PO DAILY [facility] Rosuvastatin Calcium (Crestor) 10 mg PO HS [facility] Last Admin: 02/24/18 21:34 Dose: 10 mg Vitamin B Complex/Vit C/Folic Acid (Nephro-Orquidea) 1 tab PO 0800 [facility] - Labs Labs: 02/24/18 15:32 02/24/18 15:09 PT 10.7 SECONDS (9.7-12.2) 02/24/18 15:09 INR 1.0 02/24/18 15:09 APTT 26 SECONDS (21-34) 02/24/18 15:09 - Constitutional Appears: Non-toxic, No Acute Distress - Head Exam Head Exam: ATRAUMATIC, NORMAL INSPECTION - Eye Exam Eye Exam: EOMI - ENT Exam ENT Exam: Mucous Membranes Moist - Neck Exam Neck Exam: Full ROM - Respiratory Exam Respiratory Exam: NORMAL BREATHING PATTERN - Cardiovascular Exam Cardiovascular Exam: +S1, +S2 - GI/Abdominal Exam GI & Abdominal Exam: Soft. absent: Tenderness - Extremities Exam Extremities Exam: Full ROM, Normal Capillary Refill, Normal Inspection - Back Exam Back Exam: Full ROM - Neurological Exam Neurological Exam: Alert, Awake, CN II-XII Intact, Oriented x3 - Psychiatric Exam Psychiatric exam: Normal Affect, Normal Mood - Skin Skin Exam: Dry, Normal Color, Warm Additional comments: decreased skin turgor Assessment and Plan (1) ESRD (end stage renal disease) Assessment & Plan: Patient would benefit from HD Nephro consulted- Patient has refused HD in the past Counseling warranted Monitor Status: Acute (2) CHF (congestive heart failure) Assessment & Plan: LV systolic function severely impaired with EF of 20% as stated during last admission (01/2018) CXR- Cardiomegaly noted BNP elevated Patient was not a candidate for AICD. Potentially consider LifeVest. F/U cardio recommendations On Coreg at this time. Begin Lasix 20 mg PO daily Monitor Status: Chronic (3) HTN (hypertension) Assessment & Plan: Continue HCTZ and Coreg at this time BP Hold parameters in place Monitor Status: Chronic (4) Anemia of chronic disease Assessment & Plan: Likely secondary to chronic kidney disease On Fergon TID Monitor Hgb Continue to monitor Status: Chronic (5) Hx of coronary artery disease Assessment & Plan: Continue Crestor at this time in light of history of anterior wall IA 05/[address] Bravo ( Cardio) consulted- F/U recommendations Status: Chronic (6) Transaminitis Assessment & Plan: Hepatitis Panel negative from 10/2017 Crestor to be continued at this time in light of history of CAD. Will continue to monitor. Status: Chronic (7) Prophylactic measure Assessment & Plan: Heparin SC Q12 Pepcid 20 mg daily Monitor Discusses with attending. All management and planning per Dr. Quezada Status: Acute
[2018-02-25] MEDS: Multivitamin Vitamin B Complex (Nephro-Vite) Tab PO SCH (08:00)
[2018-02-25] MEDS ORDERED: Enoxaparin 40 mg Syringe SC SCH ×2 (10:00)
--- NOTE | 2018-02-25 12:50 | CARD ---
APPROVED REPORT Date of service: 02/24/2018 EKG Measurement Heart [id number] <Conclusion> Normal sinus rhythm Possible Left atrial enlargement Left ventricular hypertrophy with repolarization abnormality Inferior infarct, age undetermined Anterior infarct, age undetermined Abnormal ECG
[2018-02-25 14:15] LABS: BASO % 0.2 % (0.0-2.0); EOS # 0.6 K/uL (0.0-0.7); HEMOGLOBIN 10.7 g/dL (11.0-16.0); LYMPH # 1.4 K/uL (1.0-4.3); LYMPH % 29.9 % (20.0-40.0); MEAN CELL VOLUME 82.1 fL (81.0-99.0); MEAN CORPUSCULAR HEMOGLOBIN 26.9 pg (27.0-31.0); MEAN CORPUSCULAR HGB CONC 32.7 g/dL (33.0-37.0); MEAN PLATELET VOLUME 9.7 fL (7.2-11.7); MONO # 0.3 K/uL (0.0-0.8); MONO % 5.9 % (0.0-10.0); NEUT # 2.4 K/uL (1.8-7.0); NRBC % 0.2 % (0.0-2.0); RED CELL DISTRIBUTION WIDTH 15.3 % (11.5-14.5); WHITE BLOOD COUNT 4.7 K/uL (4.8-10.8)
[2018-02-25 14:34] LABS: ALBUMIN 4.1 g/dL (3.5-5.0); CALCIUM 8.6 mg/dl (8.6-10.4)
--- NOTE | 2018-02-25 20:01 | CP.PCM.CON ---
History of Present Illness - History of Present Illness History of Present Illness: pt is seen and examined, full consult is dictated #[id number] 1. esrd 2. cm 3. HTN 4. met. acidosis add [id number] 650 m, gpo tid pt is refusing hd consider hospice Past Patient History - Past Medical History & Family History Past Medical History?: Yes - Past Social History Smoking Status: Never Smoked - CARDIAC Hx Congestive Heart Failure: Yes Hx Hypercholesterolemia: Yes Hx Hypertension: Yes - PULMONARY Hx Respiratory Disorders: No - NEUROLOGICAL HX Cerebrovascular Accident: Yes - HEENT Hx HEENT Problems: No - RENAL Hx Chronic Kidney Disease: Yes - ENDOCRINE/METABOLIC Hx Diabetes Mellitus Type 2: Yes - HEMATOLOGICAL/ONCOLOGICAL Hx Blood Disorders: No - INTEGUMENTARY Hx Dermatological Problems: No - MUSCULOSKELETAL/RHEUMATOLOGICAL Hx Musculoskeletal Disorders: No Hx Falls: Yes (syncopal episode) - GASTROINTESTINAL Hx Gastrointestinal Disorders: No - GENITOURINARY/GYNECOLOGICAL Hx Genitourinary Disorders: No - PSYCHIATRIC Hx Substance Use: No - SURGICAL HISTORY Hx Surgeries: Yes Hx Hysterectomy: Yes Other/Comment: Carotid artery sx - ANESTHESIA Hx Anesthesia: Yes Hx Anesthesia Reactions: No Hx Malignant Hyperthermia: No Meds Allergies/Adverse Reactions: Allergies Allergy/AdvReac Type Severity Reaction Status Date / Time No Known Allergies Allergy Verified 01/11/18 04:20 - Medications Medications: Current Medications Aspirin (Aspirin Chewable) 81 mg PO DAILY [facility] Last Admin: 02/25/18 09:28 Dose: 81 mg Carvedilol (Coreg) 3.125 mg PO BID [facility] Last Admin: 02/25/18 17:11 Dose: 3.125 mg Clopidogrel Bisulfate (Plavix) 75 mg PO DAILY [facility] Last Admin: 02/25/18 09:27 Dose: 75 mg Famotidine (Pepcid) 20 mg PO DAILY [facility] Last Admin: 02/25/18 09:27 Dose: 20 mg Ferrous Gluconate (Fergon) 324 mg PO TID [facility] Last Admin: 02/25/18 17:11 Dose: 324 mg Furosemide (Lasix) 20 mg PO DAILY [facility] Heparin Sodium (Porcine) (Heparin) 5,000 units SC Q12 [facility] Last Admin: 02/25/18 10:56 Dose: 5,000 units Hydrochlorothiazide (Microzide) 12.5 mg PO DAILY [facility] Rosuvastatin Calcium (Crestor) 10 mg PO HS [facility] Last Admin: 02/24/18 21:34 Dose: 10 mg Vitamin B Complex/Vit C/Folic Acid (Nephro-Orquidea) 1 tab PO 0800 [facility] Last Admin: 02/25/18 08:00 Dose: 1 tab Results - Vital Signs Recent Vital Signs: Last Vital Signs Temp 98.2 F 02/25/18 15:46 Pulse 65 02/25/18 15:46 Resp 20 02/25/18 15:46 BP 122/67 02/25/18 15:46 Pulse Ox 98 02/25/18 15:46 - Labs Result Diagrams: 02/25/18 14:00 02/25/18 14:00 Labs: Laboratory Results - last 24 hr 02/25/18 02/25/18 14:00 14:00 WBC 4.7 L RBC 4.00 Hgb 10.7 L Hct 32.8 L MCV 82.1 MCH 26.9 L MCHC 32.7 L RDW 15.3 H Plt Count 155 MPV 9.7 Neut % (Auto) 51.0 Lymph % (Auto) 29.9 Adams % (Auto) 5.9 Eos % (Auto) 13.0 H Baso % (Auto) 0.2 Neut # (Auto) 2.4 Lymph # (Auto) 1.4 Adams # (Auto) 0.3 Eos # (Auto) 0.6 Baso # (Auto) 0.0 Sodium 139 Potassium 4.8 Chloride 106 Carbon Dioxide 15 L Anion Gap 22 H BUN 111 H* Creatinine 3.2 H Est GFR ( Amer) 17 Est GFR (Non-Af Amer) 14 Random Glucose 124 H Calcium 8.6 Phosphorus 6.4 H Magnesium 1.9 Total Bilirubin 0.3 AST 27 ALT 48 Alkaline Phosphatase 82 Total Protein 8.1 Albumin 4.1 Globulin 4.0 H Albumin/Globulin Ratio 1.0
[2018-02-26 07:34] LABS: BASO % 0.3 % (0.0-2.0); EOS # 0.8 K/uL (0.0-0.7); EOS % 15.3 % (0.0-4.0); HEMOGLOBIN 10.6 g/dL (11.0-16.0); LYMPH # 1.7 K/uL (1.0-4.3); LYMPH % 32.7 % (20.0-40.0); MEAN CORPUSCULAR HEMOGLOBIN 26.8 pg (27.0-31.0); MEAN CORPUSCULAR HGB CONC 32.7 g/dL (33.0-37.0); MEAN PLATELET VOLUME 9.3 fL (7.2-11.7); MONO # 0.3 K/uL (0.0-0.8); MONO % 5.2 % (0.0-10.0); NEUT # 2.4 K/uL (1.8-7.0); NEUT % 46.5 % (50.0-75.0); NRBC % 0.1 % (0.0-2.0); RBC 3.96 Mil/uL (3.80-5.20); WHITE BLOOD COUNT 5.2 K/uL (4.8-10.8)
--- NOTE | 2018-02-26 07:34 | CP.PCM.PN ---
Subjective - Date & Time of Evaluation Date of Evaluation: 02/26/18 Time of Evaluation: 07:32 - Subjective Subjective: PROGRESS NOTE FOR DR. PUENTES'S SERVICE Pt seen and examined at bedside today. She was seen yesterday by nephro and has refused HD. She is being considered for palliative care. At bedside this morning she is lethargic and not cooperative with physical exam. She motions that she wants to be left alone and pulls the blanket over her head. She has not yet been seen by cardio- Dr. Bravo. Objective - Vital Signs/Intake and Output Vital Signs (last 24 hours): Temp Pulse Resp BP Pulse Ox 97.3 F L 72 20 90/65 L 96 02/25/18 23:15 02/26/18 05:05 02/25/18 23:15 02/25/18 23:15 02/25/18 23:15 - Medications Medications: Current Medications Aspirin (Aspirin Chewable) 81 mg PO DAILY [facility] Last Admin: 02/25/18 09:28 Dose: 81 mg Carvedilol (Coreg) 3.125 mg PO BID [facility] Last Admin: 02/25/18 17:11 Dose: 3.125 mg Clopidogrel Bisulfate (Plavix) 75 mg PO DAILY [facility] Last Admin: 02/25/18 09:27 Dose: 75 mg Famotidine (Pepcid) 20 mg PO DAILY [facility] Last Admin: 02/25/18 09:27 Dose: 20 mg Ferrous Gluconate (Fergon) 324 mg PO TID [facility] Last Admin: 02/25/18 17:11 Dose: 324 mg Furosemide (Lasix) 20 mg PO DAILY [facility] Heparin Sodium (Porcine) (Heparin) 5,000 units SC Q12 [facility] Last Admin: 02/25/18 21:18 Dose: 5,000 units Hydrochlorothiazide (Microzide) 12.5 mg PO DAILY [facility] Rosuvastatin Calcium (Crestor) 10 mg PO HS [facility] Last Admin: 02/25/18 21:18 Dose: 10 mg Vitamin B Complex/Vit C/Folic Acid (Nephro-Jimy) 1 tab PO 0800 [facility] Last Admin: 02/25/18 08:00 Dose: 1 tab - Labs Labs: 02/25/18 14:00 02/25/18 14:00 PT 10.7 SECONDS (9.7-12.2) 02/24/18 15:09 INR 1.0 08/14/18 15:09 APTT 26 SECONDS (21-34) 02/24/18 15:09 - Constitutional Appears: No Acute Distress, Agitated (mild) - Head Exam Head Exam: ATRAUMATIC, NORMOCEPHALIC - Respiratory Exam Respiratory Exam: NORMAL BREATHING PATTERN - Neurological Exam Neurological Exam: Alert, Awake - Skin Skin Exam: Dry, Warm Assessment and Plan - Assessment and Plan (Free Text) Plan: ESRD (end stage renal disease) Nephro consult placed to Dr. Ron- Patient has refused HD Nephro-jimy PO QD Monitor CHF (congestive heart failure) Cardiology consult placed to Dr. Bravo- patient waiting to be seen LV systolic function severely impaired with EF of 20% as stated during last admission (01/2018) CXR- Cardiomegaly noted BNP elevated Patient was not a candidate for AICD. Potentially consider LifeVest. F/U cardio recommendations On Coreg at this time. Begin Lasix 20 mg PO daily Monitor HTN (hypertension) Continue HCTZ 12.5mg PO QD, Lasix 20mg PO QD and Coreg 3.125mg PO BID at this time BP Hold parameters in place Monitor Anemia of chronic disease Likely secondary to chronic kidney disease On Fergon 324mg PO TID Monitor Hgb- stable currently Coronary artery disease Continue Crestor at this time in light of history of anterior wall [place] 05/2017 Plavix 75mg PO daily Crestor 10mg PO QHS Dr. Bravo ( Cardio) consulted- F/U recommendations Transaminitis- resolved Hepatitis Panel negative from 10/2017 Crestor to be continued at this time in light of history of CAD. Will continue to monitor. Prophylactic measure Heparin 5k SC Q12 Pepcid 20 mg daily Monitor Case discussed with Dr. Puentes. All medical management as per Dr. Puentes.
[2018-02-26 08:16] LABS: ALB/GLOB RATIO 1.1 (1.0-2.1); ALBUMIN 4.2 g/dL (3.5-5.0); CALCIUM 9.1 mg/dl (8.6-10.4)
[2018-02-26] MEDS: Multivitamin Vitamin B Complex (Nephro-Vite) Tab PO SCH (08:27)
--- NOTE | 2018-02-26 08:30 | HP ---
Copied To: Chasity Quezada MD Attending MD: Chasity Quezada MD HISTORY OF PRESENT ILLNESS: An 82-year-old female with history of hypertension, diabetes, congestive heart failure, and chronic renal failure, and has a chief complaint of syncope, shortness of breath, and weakness. The patient came to the ER, advised admission. Family refused dialysis in the past and refused cardiac catheterization. The patient is DNR. PHYSICAL EXAMINATION: GENERAL: The patient is awake, alert, and oriented. HEENT: Within normal limits. NECK: Supple. CHEST: Symmetrical. HEART: Regular. ABDOMEN: Soft. EXTREMITIES: No edema. IMPRESSION: Congestive heart failure, syncope, rule out arrhythmia or . The patient is to get bedrest, supportive care. Chasity Quezada MD
--- NOTE | 2018-02-26 11:28 | CON ---
Copied To: Oneil Ron MD Attending MD: Oneil Ron MD DATE: 02/25/2018 RENAL CONSULTATION REASON FOR RENAL CONSULTATION: CKD 5, for further evaluation. REQUESTING PHYSICIAN: Chasity Quezada MD HISTORY OF PRESENT ILLNESS: Mrs. Priest is an 82-year-old elderly female with a past medical history significant for longstanding hypertension, CVA, hyperlipidemia, CHF, chronic kidney disease stage 5, cardiomyopathy, unilateral small kidney, was recently discharged from [facility] after refusing hemodialysis. Now, the patient was admitted with chief complaints of syncope on the day of admission. Denies any injury. Denies any loss of consciousness. The patient denies any chest pain or palpitation. Denies any nausea, vomiting, or diarrhea. The patient complains of pain in the left upper extremity and shoulder. PAST MEDICAL HISTORY: Significant for hypertension, CVA, CHF, hyperlipidemia, chronic kidney disease, anemia, hyperkalemia. PAST SURGICAL HISTORY: Denies. ALLERGIES: NO KNOWN DRUG ALLERGIES. SOCIAL HISTORY: No smoking. No alcohol. No drugs. FAMILY HISTORY: Not significant. She has a very supportive daughter and family. CURRENT MEDICATIONS: Include aspirin 81 mg p.o. daily, Coreg 3.125 mg p.o. b.i.d., Crestor 10 mg at bedtime, ferrous gluconate 324 mg p.o. t.i.d., subcutaneous heparin 5000 every 12 hours, Lasix 20 mg p.o. daily, hydrochlorothiazide 12.5 mg daily, Nephro-Orquidea one tablet daily, Pepcid 20 mg p.o. daily, and Plavix 75 mg p.o. daily. REVIEW OF SYSTEMS: Significant for syncopal episode and all other review of systems are reviewed and are negative except pain in the left shoulder and left arm. PHYSICAL EXAMINATION: VITAL SIGNS: Blood pressure 122/67, pulse 65, respirations 20, temperature 98.2, saturation 98%, height 5 feet 1 inch, weight is 95 pounds. GENERAL: Mrs. Priest is an 82-year-old elderly female, thin built, not in distress. HEENT: Pupils normal and reactive to light and accommodation. Conjunctivae pink. Sclerae anicteric. Tongue is moist. NECK: Trachea is midline. LUNGS: Symmetric on both sides. Bilateral breath sounds present. Clear to auscultation. CVS: [place] at the fifth intercostal space, midclavicular line. S1, S2 audible. No murmur or gallop. ABDOMEN: Normal in appearance. Soft, tympanic. No guarding. No rigidity. No hepatosplenomegaly. CONTACT CENTER AGENT: The patient is alert, awake, and oriented x3. Nonfocal neuro examination. Cranial nerves II through XII grossly intact. Sensory and motor system are within normal limits. EXTREMITIES: No cyanosis, no clubbing, no edema. LABORATORY DATA: Include as follows: As of 02/24/2018, WBC 6, hemoglobin 10.4, hematocrit is 31.7, platelets 151. PT 10.7, PTT 26. Sodium 142, potassium 4.6, chloride 108, CO2 18, BUN 109, creatinine 3.5, glucose 113, calcium 9.3. Total bilirubin 0.4, AST 49, ALT 54, alkaline phosphatase is 78. Troponin is 0.013, and proBNP is 15,200, total protein 8.6, albumin is 4.4. Repeat labs as of 02/25/2018, WBC 4.7, hemoglobin 10.7, hematocrit is 32.8, platelets 155. Sodium 139, potassium 4.8, chloride 106, CO2 15, BUN 111, creatinine 3.2, with GFR about 14 mL. Sodium 139, glucose 124, calcium 8.6, phosphorus is 6.4, magnesium 1.9. Total bilirubin 0.3, AST 48, ALT 82, total protein 8.1, albumin is 4.1. ASSESSMENT: In summary, Mrs. Priest is an 82-year-old elderly female with a history of hypertension, cerebrovascular accident, congestive heart failure, anemia, chronic kidney disease stage 5, cardiomyopathy, unilateral small kidney, hyperkalemia, metabolic acidosis, was refusing hemodialysis, admitted with syncope. 1. 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 2. Metabolic acidosis secondary to renal failure. 3. Hypertension. 4. Unilateral small kidney. 5. Cardiomyopathy. The patient's family is refusing hemodialysis at this time. Consider palliative care and home hospice. Continue all her current medications and consider to add sodium bicarbonate 650 mg p.o. t.i.d. for metabolic acidosis. Overall, prognosis is very poor. We will follow with you. Thank you for allowing me to participate in your patient's care. Oneil Ron MD Psychiatric # [id number]
--- NOTE | 2018-02-26 14:38 | CP.PCM.CON ---
History of Present Illness - History of Present Illness History of Present Illness: Palliative consult requested by Doctor Darby for goals of care discussion. Patient is a 82 yo lady admitted from home, S/P near syncopal episode. Patient did not fall nor had sustained any injuries. Patient had similar episode in January/2018 and was hospitalized. At that time HD was advised, but family refused. Cardiac cath was refused by family again. Upon this admission, patient was diagnosed with metabolic acidosis. Doctor Carcamo called on consult and according to family, HD was suggested. However , I spoke to patient's daughter in law today, who said, patient did not want HD. Doctor Carcamo suggested Hospice care then and palliative care was called to assist in process. PMH: CVA, CKD, renal faillure, HTN Soc Hx: , lives at home with son and his family Fam. Hx: denied by patient Review of Systems - Constitutional Constitutional: Weakness - EENT Eyes: absent: As Per HPI, Blind Spots, Blurred Vision, Change in Vision, Decreased Night Vision, Diplopia, Discharge, Dry Eye, Exophthalmos, Floaters, Irritation, Itchy Eyes, Loss of Peripheral Vision, Pain, Photophobia, Requires Corrective Lenses, Sees Flashes, Spots in Vision, Tunnel Vision, Other Visual Disturbances, Loss of Vision, Other Ears: absent: As Per HPI, Decreased Hearing, Ear Discharge, Ear Pain, Tinnitus, Abnormal Hearing, Disequilibrium, Dizziness, Other Nose/Mouth/Throat: absent: As Per HPI, Epistaxis, Nasal Congestion, Nasal Discharge, Nasal Obstruction, Nasal Trauma, Nose Pain, Post Nasal Drip, Sinus Pain, Sinus Pressure, Bleeding Gums, Change in Voice, Dental Pain, Dry Mouth, Dysphagia, Halitosis, Hoarsness, Lip Swelling, Mouth Lesions, Mouth Pain, Odynophagia, Sore Throat, Throat Swelling, Tongue Swelling, Facial Pain, Neck Pain, Neck Mass, Other - Breasts Breasts: absent: As Per HPI, Change in Shape, Mass, Pain, Nipple Discharge, Nipple Inversion, Skin Changes, Swelling, Other - Cardiovascular Cardiovascular: absent: As Per HPI, Acrocyanosis, Chest Pain, Chest Pain at Rest , Chest Pain with Activity, Claudication, Diaphoresis, Dyspnea, Dyspnea on Exertion, Edema, Irregular Heart Rhythm, Pain Radiating to Arm/Neck/Jaw, Leg Edema, Leg Ulcers, Lightheadedness, Orthopnea, Palpitations, Paroxysmal Nocturnal Dyspnea, Pedal Edema, Radiating Pain, Rapid Heart Rate, Slow Heart Rate, Syncope, Other - Respiratory Respiratory: Cough, Chest Congestion - Gastrointestinal Gastrointestinal: absent: As Per HPI, Abdominal Pain, Belching, Bloating, Change in Bowel Habits, Change in Stool Character, Coffee Ground Emesis, Constipation, Cramping, Diarrhea, Dyspepsia, Dysphagia, Early Satiety, Excessive Flatus, Fecal Incontinence, Heartburn, Hematemesis, Hematochezia, Loose Stools, Melena, Nausea, Odynophagia, Temesmus, Vomiting, Other - Genitourinary Genitourinary: absent: As Per HPI, Change in Urinary Stream, Difficulty Urinating, Dysuria, Flank Pain, Hematuria, Pyuria, Nocturia, Urinary Incontinence, Urinary Frequency, Urinary Hesitance, Urinary Urgency, Voiding Freq/Small Amts, Freq UTI, Hx Renal/Bladder Calculi, Hx /Renal Surgery, Bladder Distension, Other - Reproductive: Female Reproductive:Female: Post Menopausal - Menstruation Menstruation: Post Menopausal - Musculoskeletal Musculoskeletal: Arthralgias, Limited Range of Motion - Integumentary Integumentary: absent: As Per HPI, Acne, Alopecia, Bleeding Lesions, Change in Hair, Change in Nails, Change in Pigmentation, Changing Lesions, Dry Skin, Erythema, Furuncle, Hirsutism, Lesions, New Lesions, Non-Healing Lesions, Photosensitivity, Pruritus, Rash, Skin Pain, Skin Ulcer, Sores, Striae, Swelling , Unusual Bruising, Wounds, Jaundice, Other - Neurological Neurological: absent: As Per HPI, Abnormal Gait, Abnormal Hearing, Abnormal Movements, Abnormal Speech, Behavioral Changes, Burning Sensations, Confusion, Convulsions, Disequilibrium, Dizziness, Numbness, Focal Weakness, Frequent Falls , Headaches, Lack of Coordination, Loss of Vision, Memory Loss, Paresthesias, Radicular Pain, Restless Legs, Sensory Deficit, Syncope, Tingling, Tremor, Vertigo, Weakness, Other Visual Disturbances, Other - Psychiatric Psychiatric: absent: As Per HPI, Abnormal Sleep Pattern, Anhedonia, Anxiety, Auditory Hallucinations, Behavioral Changes, Change in Appetite, Change in Libido, Confusion, Depression, Difficulty Concentrating, Hallucinations, Homicidal Ideation, Hopelessness, Irritability, Memory Loss, Mood Swings, Panic Attacks, Paranoia, Suicidal Ideation, Visual Hallucinations, Tactile Hallucinations, Other - Endocrine Endocrine: absent: As Per HPI, Change in Body Appearance, Change in Libido, Cold Intolorance, Deepening of Voice, Excessive Sweating, Fatigue, Flushing, Heat Intolorance, Increase in Ring/Shoe/Hat Size, Palpitations, Polydipsia, Polyphagia, Polyuria, Other - Hematologic/Lymphatic Hematologic: absent: As Per HPI, Easy Bleeding, Easy Bruising, Lymphadenopathy, Other Past Patient History - Past Medical History & Family History Past Medical History?: Yes - Past Social History Smoking Status: Never Smoked - CARDIAC Hx Congestive Heart Failure: Yes Hx Hypercholesterolemia: Yes Hx Hypertension: Yes - PULMONARY Hx Respiratory Disorders: No - NEUROLOGICAL HX Cerebrovascular Accident: Yes - HEENT Hx HEENT Problems: No - RENAL Hx Chronic Kidney Disease: Yes - ENDOCRINE/METABOLIC Hx Diabetes Mellitus Type 2: Yes - HEMATOLOGICAL/ONCOLOGICAL Hx Blood Disorders: No - INTEGUMENTARY Hx Dermatological Problems: No - MUSCULOSKELETAL/RHEUMATOLOGICAL Hx Musculoskeletal Disorders: No Hx Falls: Yes (syncopal episode) - GASTROINTESTINAL Hx Gastrointestinal Disorders: No - GENITOURINARY/GYNECOLOGICAL Hx Genitourinary Disorders: No - PSYCHIATRIC Hx Substance Use: No - SURGICAL HISTORY Hx Surgeries: Yes Hx Hysterectomy: Yes Other/Comment: Carotid artery sx - ANESTHESIA Hx Anesthesia: Yes Hx Anesthesia Reactions: No Hx Malignant Hyperthermia: No Meds Allergies/Adverse Reactions: Allergies Allergy/AdvReac Type Severity Reaction Status Date / Time No Known Allergies Allergy Verified 01/11/18 04:20 - Medications Medications: Current Medications Aspirin (Aspirin Chewable) 81 mg PO DAILY [facility] Last Admin: 02/26/18 10:46 Dose: 81 mg Carvedilol (Coreg) 3.125 mg PO BID [facility] Last Admin: 02/26/18 10:47 Dose: Not Given Clopidogrel Bisulfate (Plavix) 75 mg PO DAILY [facility] Last Admin: 02/26/18 10:46 Dose: 75 mg Famotidine (Pepcid) 20 mg PO DAILY [facility] Last Admin: 02/26/18 10:46 Dose: 20 mg Ferrous Gluconate (Fergon) 324 mg PO TID [facility] Last Admin: 02/26/18 13:52 Dose: 324 mg Furosemide (Lasix) 20 mg PO DAILY [facility] Last Admin: 02/26/18 10:46 Dose: 20 mg Heparin Sodium (Porcine) (Heparin) 5,000 units SC Q12 [facility] Last Admin: 02/26/18 10:46 Dose: 5,000 units Hydrochlorothiazide (Microzide) 12.5 mg PO DAILY [facility] Last Admin: 02/26/18 10:46 Dose: 12.5 mg Rosuvastatin Calcium (Crestor) 10 mg PO HS [facility] Last Admin: 02/25/18 21:18 Dose: 10 mg Vitamin B Complex/Vit C/Folic Acid (Nephro-Orquidea) 1 tab PO 0800 [facility] Last Admin: 02/26/18 08:27 Dose: 1 tab Physical Exam - Constitutional Appears: Chronically Ill - Head Exam Head Exam: ATRAUMATIC, NORMAL INSPECTION, NORMOCEPHALIC - Eye Exam Eye Exam: EOMI, Normal appearance, PERRL Pupil Exam: NORMAL ACCOMODATION, PERRL - ENT Exam ENT Exam: Mucous Membranes Moist, Normal Exam - Neck Exam Neck exam: Positive for: Normal Inspection - Respiratory Exam Respiratory Exam: Decreased Breath Sounds, Rhonchi - Cardiovascular Exam Cardiovascular Exam: Tachycardia - GI/Abdominal Exam GI & Abdominal Exam: Normal Bowel Sounds - Rectal Exam Rectal Exam: Deferred - Extremities Exam Extremities exam: Positive for: normal inspection - Back Exam Back exam: NORMAL INSPECTION - Neurological Exam Neurological exam: Alert, Oriented x3 - Psychiatric Exam Psychiatric exam: Normal Affect, Normal Mood - Skin Skin Exam: Pallor Results - Vital Signs Recent Vital Signs: Last Vital Signs Temp 97.7 F 02/26/18 07:35 Pulse 61 02/26/18 07:35 Resp 20 02/26/18 07:35 BP 110/60 02/26/18 10:46 Pulse Ox 97 02/26/18 07:35 - Labs Result Diagrams: 02/26/18 07:19 02/26/18 07:19 Labs: Laboratory Results - last 24 hr 02/25/18 02/26/18 02/26/18 14:00 07:19 07:19 WBC 5.2 RBC 3.96 Hgb 10.6 L Hct 32.5 L MCV 82.0 MCH 26.8 L MCHC 32.7 L RDW 15.0 H Plt Count 163 MPV 9.3 Neut % (Auto) 46.5 L Lymph % (Auto) 32.7 Love % (Auto) 5.2 Eos % (Auto) 15.3 H Baso % (Auto) 0.3 Neut # (Auto) 2.4 Lymph # (Auto) 1.7 Love # (Auto) 0.3 Eos # (Auto) 0.8 H Baso # (Auto) 0.0 Sodium 139 140 Potassium 4.8 4.7 Chloride 106 108 H Carbon Dioxide 15 L 16 L Anion Gap 22 H 21 H BUN 111 H* 111 H* Creatinine 3.2 H 3.4 H Est GFR ( Amer) 17 16 Est GFR (Non-Af Amer) 14 13 Random Glucose 124 H 92 Calcium 8.6 9.1 Phosphorus 6.4 H 6.3 H Magnesium 1.9 2.0 Total Bilirubin 0.3 0.4 AST 27 29 ALT 48 47 Alkaline Phosphatase 82 87 Total Protein 8.1 8.0 Albumin 4.1 4.2 Globulin 4.0 H 3.8 Albumin/Globulin Ratio 1.0 1.1 Assessment & Plan - Assessment and Plan (Free Text) Assessment: Palliative consult There is no Advance directive, PPS 30% I reviewed medical records, all diagnostic studies, examined and interviewd patient in the bed. Translation provided by patient's daughter in law Mrs. Cem Mckinnon Patient is alert, oriented X 3, Yarsani speaking, looking chronically ill, cachectic, only 95 lb.There is moist congestive cough, with some foamy sputum production. Per daughter in law at bed side, patient used to cough at home, than cough subsided and returned again. Patient complains of pain to left shoulder. No signs of trauma to the shoulder, limited ROM to left arm. Abdomen is flat, denies abdominal pain, tolerates small amounts of food at the time. Bladder is non distended. urine output not recorded. BP 115/69, HR 84, O2Sat 97 % RA. WBC 5.2, H 10.2, BUN 111, [employer] 3.4. Patient is on Lasix. Goals of care discussed with Daughter in law at bed side who was translating to patient. I reviewed patient's clinical condition and related symptoms of moist congestive cough to diagnosis of CHF and poor kidney functions. They both stated understanding. I questioned the suggested HD and daughter in law said that family had experience with HD in past with her mother. The main concern was poor quality of life while on HD and short life expectancy in case of this patient. The patient supported her statement. I offered my concerns about possibility of without HD. Patient acknowledged it but did not change her mind. Comfort care at home discussed. Family already begun process of applying for home care as instructed by Doctor Vanna Priest. Family as told that patient could get up to 8 hr of help a day. It means a lot to family, as they all work and are short with help at home. Code status discussed. Daughter in law recalls that patient signed DNR/DNI form on last admission in ER. I introduced POLST and explained difference between POLST and Advance directive form. Daughter translated to patient. Patient very clearly suggested that she would not want any agressive measres including CPR, PEG, HD, or MV assistance. Patient signed POLST requesting DNR/DNI. I shared this with nursing. Impression * Elderly lady with chronic kidney failure * Family and patient are refusing HD proposed by Doctor Dona * Patient and family are advocating for natural and comfort measures * left shoulder pain * Moist cough Suggestions * Would discharge patient home with VNS * Promote comfort without use of aggressive measures * Would apply Bangay patch to right shoulder for pain * Would consider discontinuing all less necessary meds such as Crestor and Pepcid * Neb Tx for cough * Robitussin sirup PRN cough * DNR/DNI, POLST on chart Palliative care will fallow up with this patient until discharge and assst with care as needed. After my physical exam another 35 min spent for Advance planing.
--- NOTE | 2018-02-26 20:13 | CP.PCM.PN ---
Subjective - Date & Time of Evaluation Date of Evaluation: 02/26/18 Time of Evaluation: 20:13 - Subjective Subjective: pt is seen and examined, follow up consult is dictated #[id number] add [id number] 650 mg po tid, renvela 800 mh po tid with food Objective - Vital Signs/Intake and Output Vital Signs (last 24 hours): Temp Pulse Resp BP Pulse Ox 97.6 F 69 20 136/75 100 02/26/18 15:00 02/26/18 16:09 02/26/18 15:00 02/26/18 15:00 02/26/18 15:00 - Medications Medications: Current Medications Aspirin (Aspirin Chewable) 81 mg PO DAILY [facility] Last Admin: 02/26/18 10:46 Dose: 81 mg Carvedilol (Coreg) 3.125 mg PO BID [facility] Last Admin: 02/26/18 17:33 Dose: 3.125 mg Clopidogrel Bisulfate (Plavix) 75 mg PO DAILY [facility] Last Admin: 02/26/18 10:46 Dose: 75 mg Famotidine (Pepcid) 20 mg PO DAILY [facility] Last Admin: 02/26/18 10:46 Dose: 20 mg Ferrous Gluconate (Fergon) 324 mg PO TID [facility] Last Admin: 02/26/18 17:33 Dose: 324 mg Furosemide (Lasix) 20 mg PO DAILY [facility] Last Admin: 02/26/18 10:46 Dose: 20 mg Heparin Sodium (Porcine) (Heparin) 5,000 units SC Q12 [facility] Last Admin: 02/26/18 10:46 Dose: 5,000 units Hydrochlorothiazide (Microzide) 12.5 mg PO DAILY [facility] Last Admin: 02/26/18 10:46 Dose: 12.5 mg Rosuvastatin Calcium (Crestor) 10 mg PO HS [facility] Last Admin: 02/25/18 21:18 Dose: 10 mg Vitamin B Complex/Vit C/Folic Acid (Nephro-Orquidea) 1 tab PO 0800 [facility] Last Admin: 02/26/18 08:27 Dose: 1 tab - Labs Labs: 02/26/18 07:19 02/26/18 07:19 PT 10.7 SECONDS (9.7-12.2) 02/24/18 15:09 INR 1.0 02/24/18 15:09 APTT 26 SECONDS (21-34) 02/24/18 15:09
--- NOTE | 2018-02-27 04:29 | PN ---
Copied To: Oneil Ron MD Attending MD: Oneil Ron MD DATE: 02/26/2018 LOCATION: The patient is located in room 662, bed A. REQUESTED BY: Chasity Quezada MD REASON FOR FOLLOWUP: CKD 5, and for further evaluation. SUBJECTIVE: Mrs. Priest is an 82-year-old elderly female with a past medical history significant for longstanding hypertension, coronary artery disease, status post stent, CKD 5, anemia, history of hyperkalemia, metabolic acidosis, was admitted with syncopal episode and also pain in the left shoulder and arm. The patient still complains of pain in the left upper extremity. Denies any chest pain or palpitation. No nausea, vomiting, or diarrhea. The patient's family and the patient are refusing hemodialysis. Now, the patient is a DNR/DNI. PHYSICAL EXAMINATION: VITAL SIGNS: Blood pressure 136/75, pulse 75, respirations 20, temperature 97.6, and saturation 100%. Height 5 feet 1 inch, weight is 95 pounds. GENERAL: Mrs. Priest is an 82-year-old elderly thin-built female, moderately built, moderately nourished, not in distress. HEENT: Pupils normal and reactive to light and accommodation. Conjunctivae pink. Sclerae anicteric. Tongue is moist. NECK: Trachea is midline. LUNGS: Symmetric on both sides. Bilateral breath sounds present. Clear to auscultation. CVS: [place] at the fifth intercostal space, midclavicular line. S1, S2 audible. No murmur or gallop. ABDOMEN: Normal in appearance. Soft, tympanic. No guarding. No rigidity. No hepatosplenomegaly. TYPE MAPPER: The patient is alert, awake, and oriented x3. Nonfocal neuro examination. Cranial nerves II through XII grossly intact. Sensory and motor system are within normal limits. EXTREMITIES: No cyanosis, no clubbing, no edema. MEDICATIONS: Include as follows: Aspirin 81 mg daily, Coreg 3.125 mg p.o. b.i.d., Crestor 10 mg p.o. at bedtime, ferrous gluconate 324 mg p.o. t.i.d., subcu heparin 5000 units every 12 hours, Lasix 20 mg p.o. daily, hydrochlorothiazide 12.5 mg daily, Nephro-Orquidea one tablet daily, Pepcid 20 mg p.o. daily, and Plavix 75 mg p.o. t.i.d. LABORATORY DATA: Include as follows: As of 02/26/2018, WBC 5.2, hemoglobin 10.6, hematocrit is 32.5, platelets 163. Sodium 140, potassium 4.7, chloride 108, CO2 16, BUN 111, creatinine 3.4, glucose 92, calcium 9.1, phosphorus 6.3, magnesium is 1. Total bilirubin 0.4. AST 29, ALT 47, alkaline phosphatase 87, total protein 8, albumin is 4.2. ASSESSMENT AND PLAN: In summary, Mrs. Priest is an 82-year-old elderly female with history of hypertension, congestive heart failure, pulmonary edema, coronary artery disease, status post stent, chronic kidney disease 5, unilateral small kidney, anemia, metabolic acidosis, status post hyperkalemia, was admitted with syncopal episode with worsening renal function. 1. 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 2. Metabolic acidosis secondary to renal failure. 3. Hypertension. 4. Coronary artery disease. 5. Congestive heart failure. The patient and her family are refusing hemodialysis. Now the patient is a do not resuscitate/do not intubate. Sodium bicarb 650 mg p.o. t.i.d., and also add Renvela 800 mg powder one packet three times a day with food. Overall prognosis is very poor without dialysis. Thank you for allowing me to participate in your patient's care. Oneil Ron MD
[2018-02-27 06:51] LABS: BASO % 0.3 % (0.0-2.0); EOS # 1.1 K/uL (0.0-0.7); EOS % 21.2 % (0.0-4.0); HEMOGLOBIN 10.7 g/dL (11.0-16.0); LYMPH # 1.6 K/uL (1.0-4.3); MEAN CELL VOLUME 80.8 fL (81.0-99.0); MEAN CORPUSCULAR HEMOGLOBIN 26.8 pg (27.0-31.0); MEAN CORPUSCULAR HGB CONC 33.2 g/dL (33.0-37.0); MEAN PLATELET VOLUME 9.3 fL (7.2-11.7); MONO # 0.3 K/uL (0.0-0.8); MONO % 5.4 % (0.0-10.0); NEUT # 2.3 K/uL (1.8-7.0); NEUT % 43.1 % (50.0-75.0); NRBC % 0.1 % (0.0-2.0); PLATELET COUNT 171 K/uL (130-400); RBC 3.99 Mil/uL (3.80-5.20); RED CELL DISTRIBUTION WIDTH 15.1 % (11.5-14.5); WHITE BLOOD COUNT 5.4 K/uL (4.8-10.8)
--- NOTE | 2018-02-27 07:06 | CP.PCM.PN ---
Subjective - Date & Time of Evaluation Date of Evaluation: 02/27/18 Time of Evaluation: 07:06 - Subjective Subjective: PROGRESS NOTE FOR DR. PUENTES'S SERVICE Pt seen and examined at bedside today. She appears lethargic and does not want to be bothered. She was seen yesterday by the palliative care team and DNR/DNI was agreed upon. She has also continued to refuse HD. Objective - Vital Signs/Intake and Output Vital Signs (last 24 hours): Temp Pulse Resp BP Pulse Ox 97.4 F L 79 20 91/59 L 97 02/26/18 23:31 02/27/18 04:00 02/26/18 23:31 02/26/18 23:31 02/26/18 23:31 - Medications Medications: Current Medications Aspirin (Aspirin Chewable) 81 mg PO DAILY [facility] Last Admin: 02/26/18 10:46 Dose: 81 mg Carvedilol (Coreg) 3.125 mg PO BID [facility] Last Admin: 02/26/18 17:33 Dose: 3.125 mg Clopidogrel Bisulfate (Plavix) 75 mg PO DAILY [facility] Last Admin: 02/26/18 10:46 Dose: 75 mg Famotidine (Pepcid) 20 mg PO DAILY [facility] Last Admin: 02/26/18 10:46 Dose: 20 mg Ferrous Gluconate (Fergon) 324 mg PO TID [facility] Last Admin: 02/26/18 17:33 Dose: 324 mg Furosemide (Lasix) 20 mg PO DAILY [facility] Last Admin: 02/26/18 10:46 Dose: 20 mg Heparin Sodium (Porcine) (Heparin) 5,000 units SC Q12 [facility] Last Admin: 02/26/18 21:34 Dose: 5,000 units Hydrochlorothiazide (Microzide) 12.5 mg PO DAILY [facility] Last Admin: 02/26/18 10:46 Dose: 12.5 mg Rosuvastatin Calcium (Crestor) 10 mg PO HS [facility] Last Admin: 02/26/18 21:34 Dose: 10 mg Sevelamer Carbonate (Renvela) 0.8 gm PO TIDCC [facility] Sodium Bicarbonate (Sodium Bicarbonate Tab) 650 mg PO Q8 [facility] Last Admin: 02/27/18 05:16 Dose: 650 mg Vitamin B Complex/Vit C/Folic Acid (Nephro-Jimy) 1 tab PO 0800 [facility] Last Admin: 02/26/18 08:27 Dose: 1 tab - Labs Labs: 02/27/18 06:45 02/26/18 07:19 PT 10.7 SECONDS (9.7-12.2) 02/24/18 15:09 INR 1.0 02/24/18 15:09 APTT 26 SECONDS (21-34) 02/24/18 15:09 - Constitutional Appears: No Acute Distress (refusing exam) - Head Exam Head Exam: ATRAUMATIC, NORMOCEPHALIC - Neurological Exam Neurological Exam: Alert, Awake, Oriented x3 Assessment and Plan - Assessment and Plan (Free Text) Plan: ESRD (end stage renal disease) Nephro consult placed to Dr. Ron- Patient has refused HD Nephro-jimy PO QD Renvela 0.8 grams PO TID NaHCO3 650mg PO q8hrs Monitor CHF (congestive heart failure) Cardiology consult placed to Dr. Bravo- patient waiting to be seen still- consult placed 02/24/18 LV systolic function severely impaired with EF of 20% as stated during last admission (01/2018) CXR- Cardiomegaly noted BNP elevated Patient was not a candidate for AICD. Potentially consider LifeVest. F/U cardio recommendations Coreg 3.125 mg PO BID Lasix 20 mg PO daily Monitor HTN (hypertension) Continue HCTZ 12.5mg PO QD, Lasix 20mg PO QD and Coreg 3.125mg PO BID at this time BP Hold parameters in place Monitor Anemia of chronic disease Likely secondary to chronic kidney disease On Fergon 324mg PO TID Monitor Hgb- stable currently Coronary artery disease Continue Crestor at this time in light of history of anterior wall SD 05/2017 Plavix 75mg PO daily Crestor 10mg PO QHS AsA [address]mg PO QD [address]. Bravo ( Cardio) consulted- F/U recommendations Transaminitis- resolved Hepatitis Panel negative from 10/2017 Crestor to be continued at this time in light of history of CAD. Will continue to monitor. Prophylactic measure Heparin 5k SC Q12 Pepcid 20 mg daily DNR/DNI Dispo planning as per palliative team: Would discharge patient home with VNS. rock worker to coordinate dispo with family to home. Case discussed with Dr. Puentes. All medical management as per Dr. Puentes.
[2018-02-27 08:07] LABS: ALBUMIN 4.2 g/dL (3.5-5.0); CALCIUM 9.3 mg/dl (8.6-10.4)
[2018-02-27] MEDS: Multivitamin Vitamin B Complex (Nephro-Vite) Tab PO SCH (08:24)
[2018-02-27 08:56] LABS: ANISOCYTOSIS SLIGHT; EOSINOPHIL 20 % (0-4); HYPOCHROMIC SLIGHT; LYMPHOCYTE 29 % (20-40); MONOCYTE 6 % (0-10); NEUTROPHIL 43 % (50-75); PLATELET ESTIMATE NORMAL (NORMAL); POIKILOCYTOSIS SLIGHT; REACTIVE LYMPHOCYTES 2 % (0-0); TOTAL CELLS COUNTED 100
[2018-02-27] MEDS: Sevelamer Carb 0.8 gm/Packet PO SCH ×3 (09:02→17:15)
--- NOTE | 2018-02-27 17:19 | CP.PCM.PN ---
Subjective - Date & Time of Evaluation Date of Evaluation: 02/27/18 Time of Evaluation: 17:19 - Subjective Subjective: pt is seen and examined, follow up consult is dictated #[id number] Objective - Vital Signs/Intake and Output Vital Signs (last 24 hours): Temp Pulse Resp BP Pulse Ox 97.9 F 76 20 128/77 98 02/27/18 15:00 02/27/18 16:00 02/27/18 15:00 02/27/18 15:00 02/27/18 15:00 Intake and Output: 02/27/18 02/27/18 06:59 18:59 Intake Total 360 Balance 360 - Medications Medications: Current Medications Aspirin (Aspirin Chewable) 81 mg PO DAILY [facility] Last Admin: 02/27/18 10:09 Dose: 81 mg Carvedilol (Coreg) 3.125 mg PO BID [facility] Last Admin: 02/27/18 17:15 Dose: 3.125 mg Clopidogrel Bisulfate (Plavix) 75 mg PO DAILY [facility] Last Admin: 02/27/18 10:10 Dose: 75 mg Famotidine (Pepcid) 20 mg PO DAILY [facility] Last Admin: 02/27/18 10:09 Dose: 20 mg Ferrous Gluconate (Fergon) 324 mg PO TID [facility] Last Admin: 02/27/18 17:15 Dose: 324 mg Furosemide (Lasix) 20 mg PO DAILY [facility] Last Admin: 02/27/18 10:09 Dose: 20 mg Heparin Sodium (Porcine) (Heparin) 5,000 units SC Q12 [facility] Last Admin: 02/27/18 10:10 Dose: 5,000 units Hydrochlorothiazide (Microzide) 12.5 mg PO DAILY [facility] Last Admin: 02/27/18 10:09 Dose: 12.5 mg Rosuvastatin Calcium (Crestor) 10 mg PO HS [facility] Last Admin: 02/26/18 21:34 Dose: 10 mg Sevelamer Carbonate (Renvela) 0.8 gm PO TIDCC [facility] Last Admin: 02/27/18 17:15 Dose: 0.8 gm Sodium Bicarbonate (Sodium Bicarbonate Tab) 650 mg PO Q8 [facility] Last Admin: 02/27/18 14:38 Dose: 650 mg Vitamin B Complex/Vit C/Folic Acid (Nephro-Orquidea) 1 tab PO 0800 [facility] Last Admin: 02/27/18 08:24 Dose: 1 tab - Labs Labs: 02/27/18 06:45 02/27/18 06:45 PT 10.7 SECONDS (9.7-12.2) 02/24/18 15:09 INR 1.0 02/24/18 15:09 APTT 26 SECONDS (21-34) 02/24/18 15:09
--- NOTE | 2018-02-28 02:13 | PN ---
Copied To: Oneil Ron MD Attending MD: Oneil Ron MD DATE: 02/27/2018 FOLLOWUP RENAL CONSULTATION LOCATION: The patient is located in 660, bed A. REQUESTED BY: Chasity Quezada MD SUBJECTIVE: Mrs. Priest is an 82-year-old elderly female with a past medical history significant for hypertension; coronary artery disease, status post stent; unilateral small kidney; CKD 5; anemia; hyperkalemia, refusing hemodialysis; and CHF who was admitted with a syncopal episode and left shoulder pain. Renal consult was initially requested for worsening renal function and for further evaluation. The patient is refusing hemodialysis now. The patient is a DNR/DNI. PHYSICAL EXAMINATION: GENERAL: The patient is not in acute distress, resting comfortably. VITAL SIGNS: As follows: Blood pressure 128/77, pulse 69, respirations 20, temperature 97.9, saturation 98%. Height 5 feet 1 inch. Weight is 95 pounds. GENERAL: Mrs. Priest is an 82-year-old elderly female, moderate built, moderately nourished, not in distress. HEENT: Pupils are normal and reactive to light and accommodation. Conjunctivae pink. Sclerae anicteric. Tongue is moist and trachea is midline. LUNGS: Symmetric on both sides. Bilateral breath sounds present. Clear to auscultation. CARDIOVASCULAR SYSTEM: [place] at the fifth intercostal space, midclavicular line. S1, S2 audible. No murmur or gallop. ABDOMEN: Normal in appearance. Soft, tympanitic. No guarding. No rigidity. No hepatosplenomegaly. CENTRAL NERVOUS SYSTEM: The patient is alert, awake, oriented x3. Nonfocal neuro examination. Cranial nerves II-XII grossly intact. Sensory and motor system is within normal limits. EXTREMITIES: No cyanosis, no clubbing, no edema. MEDICATIONS: Her current medications include as follows: Aspirin 81 mg daily, Coreg 3.125 mg p.o. b.i.d., Crestor 10 mg daily, ferrous gluconate 324 mg p.o. t.i.d., subcu heparin 5000 units every 12 hours, Lasix 20 mg p.o. daily, hydrochlorothiazide 12.5 mg p.o. daily, Nephro-Orquidea one tablet daily, Pepcid 20 mg p.o. daily, Plavix 75 mg p.o. daily, Renvela 800 mg p.o. t.i.d., and sodium bicarbonate tablets 650 mg p.o. every 8 hours. LABORATORY DATA: Include as follows as of 02/27/2018: WBC 5.4, hemoglobin 10.7, hematocrit is 32.3, platelets 171. Neutrophils 43, lymphs 29, reactive lymphs 2, monos 6, and eosinophils about 20%. Sodium 139, potassium 4.8, chloride 107, CO2 17, BUN 99, creatinine 3.3, glucose 98, and calcium 9.3. Total bili 0.4, AST 36, ALT 45, alkaline phosphatase 88, total protein is 8.3, albumin is 4.2. ASSESSMENT: In summary, Mrs. Priest is an 82-year-old elderly female with a history of hypertension, congestive heart failure, coronary artery disease, status post stent, chronic kidney disease 5 with metabolic acidosis and refusing hemodialysis. 1. Chronic kidney disease 5, secondary to hypertensive nephrosclerosis. 2. Metabolic acidosis secondary to renal failure. 3. Congestive heart failure. 4. Hypertension. 5. Now, the patient is a do not resuscitate/do not intubate. PLAN: Continue all her current medications. Continue Coreg, aspirin, Crestor, ferrous gluconate, subcutaneous heparin, Lasix, hydrochlorothiazide, Nephro-Orquidea, Pepcid, Plavix, Renvela, and sodium bicarb. Overall prognosis is very poor. We will follow with you. Thank you for allowing me to participate in your patient's care. Oneil Ron MD
[2018-02-28] MEDS: Multivitamin Vitamin B Complex (Nephro-Vite) Tab PO SCH (09:08)
[2018-02-28] MEDS: Sevelamer Carb 0.8 gm/Packet PO SCH ×3 (09:09→17:01)
--- NOTE | 2018-02-28 19:42 | CP.PCM.PN ---
Subjective - Date & Time of Evaluation Date of Evaluation: 02/28/18 Time of Evaluation: 19:41 - Subjective Subjective: pt is seen and examined, follow up consult is dictated #[id number] Objective - Vital Signs/Intake and Output Vital Signs (last 24 hours): Temp Pulse Resp BP Pulse Ox 98 F 76 18 96/60 L 97 02/28/18 15:25 02/28/18 15:45 02/28/18 15:25 02/28/18 15:25 02/28/18 15:25 Intake and Output: 02/28/18 03/01/18 18:59 06:59 Intake Total 250 Balance 250 - Medications Medications: Current Medications Aspirin (Aspirin Chewable) 81 mg PO DAILY [facility] Last Admin: 02/28/18 09:08 Dose: 81 mg Carvedilol (Coreg) 3.125 mg PO BID [facility] Last Admin: 02/28/18 17:01 Dose: Not Given Clopidogrel Bisulfate (Plavix) 75 mg PO DAILY [facility] Last Admin: 02/28/18 09:08 Dose: 75 mg Famotidine (Pepcid) 20 mg PO DAILY [facility] Last Admin: 02/28/18 09:08 Dose: 20 mg Ferrous Gluconate (Fergon) 324 mg PO TID [facility] Last Admin: 02/28/18 17:01 Dose: 324 mg Furosemide (Lasix) 20 mg PO DAILY [facility] Last Admin: 02/28/18 09:08 Dose: 20 mg Hydrochlorothiazide (Microzide) 12.5 mg PO DAILY [facility] Last Admin: 02/28/18 09:08 Dose: 12.5 mg Rosuvastatin Calcium (Crestor) 10 mg PO HS [facility] Last Admin: 02/27/18 21:48 Dose: 10 mg Sevelamer Carbonate (Renvela) 0.8 gm PO TIDCC [facility] Last Admin: 02/28/18 17:01 Dose: 0.8 gm Sodium Bicarbonate (Sodium Bicarbonate Tab) 650 mg PO Q8 [facility] Last Admin: 02/28/18 13:19 Dose: 650 mg Vitamin B Complex/Vit C/Folic Acid (Nephro-Orquidea) 1 tab PO 0800 [facility] Last Admin: 02/28/18 09:08 Dose: 1 tab - Labs Labs: 02/27/18 06:45 02/27/18 06:45 PT 10.7 SECONDS (9.7-12.2) 02/24/18 15:09 INR 1.0 02/24/18 15:09 APTT 26 SECONDS (21-34) 02/24/18 15:09
[2018-03-01 01:29] VITALS: RESP 20
--- NOTE | 2018-03-01 04:53 | PN ---
Copied To: Oneil Ron MD Attending MD: Oneil Ron MD DATE: 02/28/2018 FOLLOWUP RENAL CONSULTATION LOCATION: The patient is located in room 660, bed A. REQUESTED BY: Chasity Quezada MD REASON FOR FOLLOWUP: CKD 5. SUBJECTIVE: Mrs. Priest is an 82-year-old elderly female with a history of hypertension, coronary artery disease, status post stents, CHF, anemia, chronic kidney disease stage 5, unilateral small kidney who was refusing hemodialysis, admitted with a syncope. The patient is not in acute distress. Denies any chest pain or palpitation. No fever. No cough. No abdominal pain. No nausea, vomiting, or diarrhea. PHYSICAL EXAMINATION: VITAL SIGNS: Blood pressure 126/75, pulse 67, respirations 18, temperature 98, and blood pressure this evening was 96/60. Height 5 feet 1 inch. Weight is 95 pounds. GENERAL: Mrs. Priest is an 82-year-old elderly female, thin built, not in distress. HEENT: Pupils are normal and reactive to light and accommodation. Conjunctivae pink. Sclerae anicteric. Tongue is moist. Trachea is midline. LUNGS: Symmetric on both sides. Bilateral breath sounds present. Bilateral basal crackles present. CARDIOVASCULAR SYSTEM: [place] at the fifth intercostal space, midclavicular line. S1, S2 audible. No murmur or gallop. ABDOMEN: Normal in appearance. Soft, tympanitic. No guarding. No rigidity. No hepatosplenomegaly. CENTRAL NERVOUS SYSTEM: The patient is alert, awake, oriented x3. Nonfocal neuro examination. Cranial nerves II-XII grossly intact. Sensory and motor system is within normal limits. EXTREMITIES: No cyanosis, no clubbing, no edema. MEDICATIONS: Her current medications include as follows: Aspirin, Coreg, Crestor, ferrous gluconate, Lasix, hydrochlorothiazide, Nephro-Orquidea, famotidine, Plavix, Renvela, and sodium bicarbonate. Medications reviewed. LABORATORY DATA: No new labs are available for today. As of 02/27/2018: Hemoglobin 10.7, hematocrit 32.3. Potassium 4.8, chloride 107, CO2 of 17, BUN 99, creatinine 3.3, calcium 9.3. ASSESSMENT AND PLAN: In summary, Mrs. Priest is an 82-year-old elderly [place] female with a history of hypertension, congestive heart failure, coronary artery disease, status post stents, and chronic kidney disease who was admitted with a syncope. 1. Chronic kidney disease 5, secondary to hypertensive nephrosclerosis. 2. Metabolic acidosis, secondary to renal failure and chronic kidney disease 5. 3. Congestive heart failure. 4. Coronary artery disease. The patient and the patient's family are refusing for hemodialysis. Continue current management. The patient is do not resuscitate/do not intubate. Overall prognosis is very poor. Thank you for allowing me to participate in your patient's care. Oneil Ron MD
[2018-03-01] MEDS: Multivitamin Vitamin B Complex (Nephro-Vite) Tab PO SCH (09:20)
[2018-03-01] MEDS: Sevelamer Carb 0.8 gm/Packet PO SCH ×3 (09:21→17:09)
--- NOTE | 2018-03-01 16:17 | CP.PCM.PN ---
Subjective - Date & Time of Evaluation Date of Evaluation: 03/01/18 Time of Evaluation: 16:16 - Subjective Subjective: pt is seen and examined, follow up consult is dictated #[id number] check cbc, bmp po4, pth in am Objective - Vital Signs/Intake and Output Vital Signs (last 24 hours): Temp Pulse Resp BP Pulse Ox 97.6 F 81 20 126/83 96 03/01/18 15:41 03/01/18 15:41 03/01/18 15:41 03/01/18 15:41 03/01/18 15:41 - Medications Medications: Current Medications Aspirin (Aspirin Chewable) 81 mg PO DAILY [facility] Last Admin: 03/01/18 09:20 Dose: 81 mg Carvedilol (Coreg) 3.125 mg PO BID [facility] Last Admin: 03/01/18 09:20 Dose: 3.125 mg Clopidogrel Bisulfate (Plavix) 75 mg PO DAILY [facility] Last Admin: 03/01/18 09:20 Dose: 75 mg Famotidine (Pepcid) 20 mg PO DAILY [facility] Last Admin: 03/01/18 09:20 Dose: 20 mg Ferrous Gluconate (Fergon) 324 mg PO TID [facility] Last Admin: 03/01/18 14:59 Dose: 324 mg Furosemide (Lasix) 20 mg PO DAILY [facility] Last Admin: 03/01/18 09:20 Dose: 20 mg Hydrochlorothiazide (Microzide) 12.5 mg PO DAILY [facility] Last Admin: 03/01/18 09:21 Dose: 12.5 mg Rosuvastatin Calcium (Crestor) 10 mg PO HS [facility] Last Admin: 02/28/18 22:08 Dose: 10 mg Sevelamer Carbonate (Renvela) 0.8 gm PO TIDCC [facility] Last Admin: 03/01/18 14:56 Dose: Not Given Sodium Bicarbonate (Sodium Bicarbonate Tab) 650 mg PO Q8 [facility] Last Admin: 03/01/18 14:59 Dose: 650 mg Vitamin B Complex/Vit C/Folic Acid (Nephro-Orquidea) 1 tab PO 0800 [facility] Last Admin: 03/01/18 09:20 Dose: 1 tab - Labs Labs: 02/27/18 06:45 02/27/18 06:45 PT 10.7 SECONDS (9.7-12.2) 02/24/18 15:09 INR 1.0 02/24/18 15:09 APTT 26 SECONDS (21-34) 02/24/18 15:09
[2018-03-02 06:26] LABS: MEAN CELL VOLUME 80.5 fL (81.0-99.0); MEAN CORPUSCULAR HEMOGLOBIN 27.1 pg (27.0-31.0); MEAN CORPUSCULAR HGB CONC 33.6 g/dL (33.0-37.0); RBC 4.06 Mil/uL (3.80-5.20); RED CELL DISTRIBUTION WIDTH 14.5 % (11.5-14.5); WHITE BLOOD COUNT 6.4 K/uL (4.8-10.8)
[2018-03-02 07:11] LABS: CALCIUM 9.7 mg/dl (8.6-10.4)
--- NOTE | 2018-03-02 09:02 | CP.PCM.PN ---
Subjective - Date & Time of Evaluation Date of Evaluation: 03/02/18 Time of Evaluation: 07:15 - Subjective Subjective: PGY3 Resident - Medicine Progress Note Pt seen and examined at bedside today. No overnight events per nursing. She continues to refuse HD treatment. She denies any pain or any acute complaints. She was seen recently by the palliative care team and DNR/DNI was agreed upon. 12 point ROS otherwise negative. -- Patient is stable for discharge per Dr. Quezada. Patient should resume all medications as outlined in this document. Additionally, patient should take the new medications listed below (scripts provided). Patient provided with a script for resumption of home PT services. 1. Please make an appointment and follow up with your Primary Doctor within one week of discharge. 2. Please make an appointment and follow up with your Service Center Supervisor, Dr. Ron within one week of discharge. You were refusing Dialysis in the hospital. This will be very important for you going forward. Please speak to your crop puller about dialysis. 3. Please make an appointment and follow up with your Buffer Inflated Pad, Dr. Bravo within one week of discharge. Patient should return to ED immediately if symptoms return or worsen. Instructions discussed with patient who understood and agreed. Newly prescribed medications: Renvela 0.8mg PO TIDCC #90 Sodium Bicarbonate 650mg PO Q8H #90 Objective - Vital Signs/Intake and Output Vital Signs (last 24 hours): Temp Pulse Resp BP Pulse Ox 97.8 F 88 20 131/66 97 03/01/18 23:55 03/01/18 23:55 03/01/18 23:55 03/01/18 23:55 03/01/18 23:55 - Medications Medications: Current Medications Aspirin (Aspirin Chewable) 81 mg PO DAILY [facility] Last Admin: 03/01/18 09:20 Dose: 81 mg Carvedilol (Coreg) 3.125 mg PO BID [facility] Last Admin: 03/01/18 17:09 Dose: 3.125 mg Clopidogrel Bisulfate (Plavix) 75 mg PO DAILY [facility] Last Admin: 03/01/18 09:20 Dose: 75 mg Famotidine (Pepcid) 20 mg PO DAILY [facility] Last Admin: 03/01/18 09:20 Dose: 20 mg Ferrous Gluconate (Fergon) 324 mg PO TID [facility] Last Admin: 03/01/18 17:09 Dose: 324 mg Furosemide (Lasix) 20 mg PO DAILY [facility] Last Admin: 03/01/18 09:20 Dose: 20 mg Hydrochlorothiazide (Microzide) 12.5 mg PO DAILY [facility] Last Admin: 03/01/18 09:21 Dose: 12.5 mg Rosuvastatin Calcium (Crestor) 10 mg PO HS [facility] Last Admin: 03/01/18 21:33 Dose: 10 mg Sevelamer Carbonate (Renvela) 0.8 gm PO TIDCC [facility] Last Admin: 03/01/18 17:09 Dose: 0.8 gm Sodium Bicarbonate (Sodium Bicarbonate Tab) 650 mg PO Q8 [facility] Last Admin: 03/02/18 05:31 Dose: 650 mg Vitamin B Complex/Vit C/Folic Acid (Nephro-Jimy) 1 tab PO 0800 [facility] Last Admin: 03/01/18 09:20 Dose: 1 tab - Labs Labs: 03/02/18 06:17 03/02/18 06:17 PT 10.7 SECONDS (9.7-12.2) 02/24/18 15:09 INR 1.0 02/24/18 15:09 APTT 26 SECONDS (21-34) 02/24/18 15:09 - Additional Findings Additional findings: - Constitutional Appears: Non-toxic, No Acute Distress - Head Exam Head Exam: ATRAUMATIC, NORMAL INSPECTION - Eye Exam Eye Exam: EOMI, Normal appearance - Respiratory Exam Respiratory Exam: NORMAL BREATHING PATTERN. absent: Rales, Wheezes - Cardiovascular Exam Cardiovascular Exam: Regular Rate, +S1, +S2 - GI/Abdominal Exam GI & Abdominal Exam: Soft, Normal Bowel Sounds. absent: Tenderness - Extremities Exam Extremities Exam: Full ROM, Normal Inspection. absent: Pedal Edema, Tenderness - Back Exam Back Exam: NORMAL INSPECTION. absent: CVA tenderness (L), CVA tenderness (R) - Neurological Exam Neurological Exam: Alert, Awake, Oriented x3 - Psychiatric Exam Psychiatric exam: Normal Affect, Normal Mood - Skin Skin Exam: Dry, Intact, Normal Color, Warm Assessment and Plan - Assessment and Plan (Free Text) Assessment: ESRD (end stage renal disease) Nephro consult placed to Dr. Ron- Patient has refused HD Nephro-jimy PO QD Renvela 0.8 grams PO TID NaHCO3 650mg PO q8hrs Monitor CHF (congestive heart failure) Cardiology consult placed to Dr. Bravo- patient waiting to be seen still- consult placed 02/24/18 LV systolic function severely impaired with EF of 20% as stated during last admission (01/2018) CXR- Cardiomegaly noted BNP elevated Patient was not a candidate for AICD. Potentially consider LifeVest. F/U cardio recommendations Coreg 3.125 mg PO BID Lasix 20 mg PO daily Monitor HTN (hypertension) Continue HCTZ 12.5mg PO QD, Lasix 20mg PO QD and Coreg 3.125mg PO BID at this time BP Hold parameters in place Monitor Anemia of chronic disease Likely secondary to chronic kidney disease On Fergon 324mg PO TID Monitor Hgb- stable currently Coronary artery disease Continue Crestor at this time in light of history of anterior wall CA 05/2017 Plavix 75mg PO daily Crestor 10mg PO QHS AsA [address]mg PO QD [address]. Bravo ( Cardio) consulted- F/U recommendations Transaminitis- resolved Hepatitis Panel negative from 10/2017 Crestor to be continued at this time in light of history of CAD. Will continue to monitor. Prophylactic measure Heparin 5k SC Q12 Pepcid 20 mg daily DNR/DNI Dispo planning as per palliative team: Would discharge patient home with VNS. utility worker film processing to coordinate dispo with family to home. Case discussed with Dr. Quezada. All medical management as per Dr. Quezada. --- Patient is stable for discharge per Dr. Quezada. Patient should resume all medications as outlined in this document. Additionally, patient should take the new medications listed below (scripts provided). Patient provided with a script for resumption of home PT services. 1. Please make an appointment and follow up with your Primary Doctor within one week of discharge. 2. Please make an appointment and follow up with your Service Center Supervisor, Dr. Ron within one week of discharge. You were refusing Dialysis in the hospital. This will be very important for you going forward. Please speak to your crop puller about dialysis. 3. Please make an appointment and follow up with your Buffer Inflated Pad, Dr. Bravo within one week of discharge. Patient should return to ED immediately if symptoms return or worsen. Instructions discussed with patient who understood and agreed. Newly prescribed medications: Renvela 0.8mg PO TIDCC #90 Sodium Bicarbonate 650mg PO Q8H #90
--- NOTE | 2018-03-02 09:25 | PN ---
Copied To: Oneil Ron MD Attending MD: Oneil Ron MD DATE: 03/01/2018 FOLLOWUP RENAL CONSULTATION LOCATION: The patient is located in room 660, bed A. REQUESTED BY: Chasity Quezada MD REASON FOR FOLLOWUP: End-stage CKD 5, refusing hemodialysis; hypertension; metabolic acidosis. HISTORY OF PRESENT ILLNESS: The patient is an 82-year-old elderly, thin-built [place] female with a history of hypertension, CHF, coronary artery disease, history of hyperkalemia, metabolic acidosis, CHF who was admitted with syncopal episode and worsening renal function. The patient is feeling much better now. The patient is refusing hemodialysis. No chest pain, no palpitation. No fever. No cough. No abdominal pain. No nausea, vomiting, or diarrhea. No swelling of the legs. No urinary symptoms. PHYSICAL EXAMINATION: VITAL SIGNS: As follows: Blood pressure 126/83, pulse 81, respirations 20, temperature 97.6, saturation 96%. Height 5 feet 1 inch, weight is 95 pounds. GENERAL: The patient is an 82-year-old elderly female, thin-built, not in distress. HEENT: Pupils normal and reactive to light and accommodation. Conjunctivae pink. Sclerae anicteric. Tongue is moist. Trachea is midline. LUNGS: Symmetric on both sides. Bilateral breath sounds present. Clear to auscultation. CVS: [place] at the fifth intercostal space, midclavicular line. S1, S2 audible. No murmur or gallop. ABDOMEN: Normal in appearance. Soft, tympanitic. No guarding. No rigidity. No hepatosplenomegaly. RETREAD MOLD OPERATOR: The patient is alert, awake, oriented x3. Nonfocal neuro examination. Cranial nerves II through XII grossly intact. Sensory and motor system is within normal limits. EXTREMITIES: No cyanosis, no clubbing, no edema. MEDICATIONS: Her current medications include as follows: Aspirin 81 mg daily, Coreg 3.125 mg p.o. b.i.d., Crestor 10 mg at bedtime, ferrous gluconate 324 mg p.o. t.i.d., Lasix 20 mg p.o. daily, hydrochlorothiazide 12.5 mg p.o. daily, Nephro-Orquidea 1 tablet daily, Pepcid 20 mg p.o. daily, Plavix 75 mg daily, Renvela 800 mg p.o. t.i.d., sodium bicarbonate 650 mg p.o. t.i.d. LABORATORY DATA: No new labs are available for today. IMPRESSION: In summary, the patient is an 82-year-old elderly female with hypertension, unilateral small kidney, chronic kidney disease stage 5, anemia, congestive heart failure, metabolic acidosis, history of secondary hyperparathyroidism, hyperkalemia who was admitted with syncopal episode with increased BUN and creatinine, low bicarb. 1. Chronic kidney disease 5, most likely secondary to hypertensive nephrosclerosis and advanced age. 2. Hypertension. Blood pressure is stable. Continue medication. 3. Metabolic acidosis secondary to renal failure. PLAN: Continue sodium bicarbonate, and continue all her current medications aspirin, Coreg, Crestor, Lasix, hydrochlorothiazide, Nephro-Orquidae, Pepcid, Plavix, Renvela, and sodium bicarbonate. We will follow with you. Thank you for allowing me to participate in your patient's care. Repeat CBC, BMP in a.m. and phosphorus. Now, the patient is a DNR/DNI, refusing hemodialysis. Overall prognosis is guarded. Thank you for allowing me to participate in your patient's care. Oneil Ron MD
[2018-03-02] MEDS: Sevelamer Carb 0.8 gm/Packet PO SCH ×2 (09:33→14:09)
[2018-03-02] MEDS: Multivitamin Vitamin B Complex (Nephro-Vite) Tab PO SCH (09:35)
--- NOTE | 2018-03-02 15:38 | IP.NPCORE ---
Heart Failure Core Measure - Heart Failure Ejection Fraction: Less Than 40 % EUGENIA Inhibitor Prescribed: No Contraindication/Reason for not providing: RENAL FAILURE Beta-Javad Prescribed: Carvedilol Angiotensin II Receptor Javad Prescribed: No Contraindication/Reason for not providing: RENAL FAILURE AnticoagulationTherapy for Atrial Fibrillation/Atrialflutter: No Contraindication/Reason for not providing: NO AFIB Aldosterone Antagonist Prescribed: No Contraindication/Reason for not providing: RENAL FAILURE Hydralazine Nitrate Prescribed: No Contraindication/Reason for not providing: RENAL FAILURE Implantable Cardioverter Defibrillator Therapy: No Contraindication/Reason for not providing: AICD CONTRAINDICATED; LIFE VEST TO BE CONSIDERED OUTPATIENT Cardiac Resynchronization Therapy Prescribed: No Contraindication/Reason for not providing: AICD CONTRAINDICATED; LIFE VEST TO BE CONSIDERED OUTPATIENT - Follow up Will be discharged to: Home Follow Up Date (must be within 7 days from discharge): 03/06/18 Follow Up Time: 09:00
[2018-03-02 15:57] VITALS: BP 150/80; PULSE 69; TEMP 98.3; O2SAT 94
--- NOTE | 2018-03-10 08:48 | DS ---
Copied To: Chasity Quezada MD Attending MD: Chasity Quezada MD The patient was admitting to the hospital with chief complaint of weakness, fatigue, tiredness, shortness of breath. The patient was found to have congestive heart failure, renal failure. The patient was admitted to telemetry, diuresis, bedrest. Consultation with Nephrology and Cardiology. The patient's condition discussed with family, what to know aggressive measure including dialysis, and the patient was discharged to be followed as outpatient. DIAGNOSES: Congestive heart failure, renal failure, deconditioning. Chasity Quezada MD
== END 2018-03-02 16:38 | disposition home health service (06) | DRG 291 ==
LOC: C.ER 14:19 → C.9E 16:51 → C.6T 17:15
PROVIDERS: ADMIT Internal Medicine Pulmonary Disease; ATTEND Internal Medicine Pulmonary Disease
DX: I13.2 Hypertensive heart and chronic kidney disease with heart failure and with stage 5 chronic kidney disease, or end stage renal disease (principal); N18.6 End stage renal disease; E87.2 Acidosis; R64 Cachexia; Z68.1 Body mass index [BMI] 19.9 or less, adult; N25.81 Secondary hyperparathyroidism of renal origin; I25.10 Atherosclerotic heart disease of native coronary artery without angina pectoris; E78.5 Hyperlipidemia, unspecified; E11.22 Type 2 diabetes mellitus with diabetic chronic kidney disease; I42.9 Cardiomyopathy, unspecified; Z51.5 Encounter for palliative care; Z66 Do not resuscitate; Z86.73 Personal history of transient ischemic attack (TIA), and cerebral infarction without residual deficits; Z95.5 Presence of coronary angioplasty implant and graft; Z91.15 Patient's noncompliance with renal dialysis; I50.9 Heart failure, unspecified; D63.1 Anemia in chronic kidney disease; N27.0 Small kidney, unilateral